=== PATIENT | female | born 1960 | race Caucasian/White ===

== ENCOUNTER 2025-09-30 09:00 | Outpatient (RCR) | payer MEDICARE, OTHER, SELFPAY ==
--- NOTE | 2025-03-25 11:40 | HP.PTEVAL ---
Patient's Visit Information Visit Information Visit Information: GISEL TIPTON is a 65 year old F referred to Physical Therapy by Dr. Alyx Chambers MD with a diagnosis of LBP, lower abdominal pain. Date of Evaluation: 03/25/25 Physical Therapist: John Nicholson, DPT, OCS, CSCS Visit Plan Frequency: 1x/Week Duration: 4-6 Weeks Plan: weekly(pt choice due to long drive and busy schedule, willing to work at home) for [id number] PT eval next session and POC adjusted as needed. Progression of core, postural, pelvic and hip /LE strength ex via HEP, progression of lumbar ROM exercises to tolerance and ensure progression of walking. IE HEP: YTB supine hip abd, ball squeeze supine for hip add, pelvic tilt, all 2x10 2x/day and eis 2x10 2x/day, HO given and performed in PT today [facility] to see next session and progress ex, eval women's health/pelvic Subjective Subjective: Had US for her pain and has no hernia. Has pain in lower abdomen and felt like things are falling out and has bladder infection and prolapsed bladder partially. Darrius intermittent LBP also and sore to push on. Chiropractor regularly. Symptoms since January and for no obvious reason. No other diagnostics. Pain is constant and described as not feeling right. Has granddaughters who are 35# and can feel it lifting them adn it makes it worse. Sitting at sewing machine can also cause it but gone with walking then. H/o c/ section and ovaries removed. Sleep is OK rolls around alot. Bladder cannot empty sometimes. Activity : avoids outside work due to bending making her worse. Basic ADLs: all I. No regular exercises but has a little trampoline but it makes her worse so avoids it. Pain abdominal pain: Pain Intensity (Out of 10): 0 Pain Intensity Range: 0 and 4 Objective Objective: Walks into PT slowly but I, trasnfers chair and bed I. Steps reciprocal with one rail. No balance deficits L hip. Lumbar multisegmental AROM ext max limited and pinches midline LB and pulling sensation in front with slight bulge at belly, no pain. SB are WFL and painfree. Flexion is WFL and painfree. LE AROM WFL, tightness obvious in HS B at -30 90/90 test and minimally in quads into psoas with hip ext PROM B to 5 degrees. Hip other PROM er 50 B, flexion 110 R and 100 L with some lateral pain L, + FADDIR L hip. IR painful L not r. knee and ankle aROM WFL B. reflexes 1/3 patella adn achilles B. Sensation to gross light touch B LE WNL. SI testing with bad, add, hip rotation and compression/shear all in supine or S/L all wFL and without pain. strength hip abd and ext weak B 3/5, rotations 3+/5, flexion 4- /5, knees 3+ ext adn 4- flexion B without pain. ankles 4+/5 B. core strength abds 3 and ext 3, no pain. Tender to palpation throughout L ghluts and ITB and trochanter area moderately not present on R. Parapsinals are not tender to palpation.Not overly tender to palpation in abdominal area L or R. Balance/Special Test Scores Oswestry Low Back Score: 13 Goals Goal 1:: evaluated by womens health therapist and POC adjusted as needed Goal Time Frame: 2 Weeks Goal 2:: I appropriate HEP for core, hip, pelvic strength and LB ROM to minimize future symptoms. Goal Time Frame: 4-6 Weeks Goal 3:: walk 30 minutes without symptoms Goal Time Frame: 4-6 Weeks Goal 4:: oswestry score 5 or better Goal Time Frame: 4-6 Weeks Rehabilitation Potential Physical Therapy Diagnosis: limited ROM and weakness creating instability adn pain abdomen and LB. Rehabilitation Potential: Fair Anticipated Interventions Patient/Client Instruction: Educate patient on: Condition and Plan of Care For the Purpose of:: To decrease pain, To increase ROM, To improve nutrient delivery to tissue, To improve muscle performance and motor function, To improve ability of physical actions for home/community/work/leisure and To improve gait and locomotor functions Therapeutic Exercise to Include: Strength training, Postural training, Passive ROM and Active ROM For the Purpose of:: To decrease pain, To increase ROM, To improve nutrient delivery to tissue, To improve muscle performance and motor function, To increase tolerance to activity/condition/position, To decrease soft tissue restriction and To increase flexibility/ROM Manual Therapy Techniques to Include: Passive ROM and Soft tissue mobilization For the Purpose of:: To decrease pain, To increase ROM, To improve nutrient delivery to tissue, To improve muscle performance and motor function, To improve ability of physical actions for home/community/work/leisure and To improve gait and locomotor functions Text: Thank you for the opportunity to evaluate your patient. For Medicare and Medicare HMO plans, please review the plan of care and approve it. It will need to be FAXED BACK to us at [phone] for Medicare purposes. For Medicare only, by signing this I certify the plan of care. Please let me know if there are questions or concerns regarding this plan of care. Physician Signature: Date:
--- NOTE | 2025-09-30 16:59 | HP.PTDCSUM ---
Discharge Summary D/C summary: It has been my pleasure to treat TRISH TIPTON referred by Dr. Alyx Chambers MD, with the diagnosis of LBP, lower abdominal pain for a total of 12 visit(s). Discharge Date: 09/30/25 Please see the following information for a summary of their discharge status. Subjective Subjective: She has a constant pain in her vaginal area. She states she has had on and off infections. She saw Dr. Chambers and she started her on Uro-mp to help with the pain in the vaginal area. She hasn't seen much of a change. She also started her on Gemtessa to treat the overactive bladder. Dr. Chambers ordered a cystoscopy on . Nothing has helped with the burning. Her initial problem when she started PT was that she couldn't fully empty her bladder. That has somewhat improved (20% improved). Pain is averaging 10/10. She feels lower abdominal pressure as well. She also tried 5 lymphatic treatments which made her feel better overall but didn't change vaginal symptoms. No complaints of low back pain. Pain abdominal pain: Pain Intensity (Out of 10): 0 LOW BACK PAIN: Pain Intensity (Out of 10): 4 Overall Improvement % Improvement: 0 Objective Objective/Function: Unfortunately Trish did not notice much improvement in her pain levels with PT She has continued the pelvic floor strengthening exercises and finds those helpful. She reports about 20% improvement in her ability to empty her bladder which was a concern when she started. She continues to have pretty constant vaginal pain and pressure in the pubic region. Recommending she continue care with Dr. Chambers . She is scheduled for a cystoscopy in October. Goals Goal 1:: evaluated by womens health therapist and POC adjusted as needed Goal Progress: Progressing Goal 2:: I appropriate HEP for core, hip, pelvic strength and LB ROM to minimize future symptoms. Goal Progress: Progressing Goal 3:: walk 30 minutes without symptoms Goal Progress: Not Progressing Goal 4:: oswestry score 5 or better Goal Progress: Not Progressing Plan Plan: D/C from PT . She has met her max rehab potential. D/C Information Discharge Comments: Trish has met her max rehab potential and is being discharged. She will be continuing care and following up with Dr. Chambers. d/c sentence: If there are questions or concerns regarding this patient's physical therapy, please feel free to call me at [phone]. Thank you for the referral of this patient. Sincerely, Sofie Peck Balance/Gait/Functional tests Balance/Special Test Scores Oswestry Low Back Score: 13 Improvement % Improvement: 0
== END 2025-09-30 19:00 | disposition home or self-care (01) ==
LOC: PT 09:00
PROVIDERS: Referring Provider Urology; Visit Provider Urology
DX: M54.50 Low back pain, unspecified (principal); R10.30 Lower abdominal pain, unspecified
CPT/HCPCS: 97110; 97112; 97140; 97161; 97530

== ENCOUNTER 2025-11-11 05:48 | Day surgery (SDC) | payer MEDICARE, OTHER, SELFPAY ==
--- NOTE | 2025-11-04 13:29 | EKG12_ITS ---
Test Reason : PREOP Blood Pressure : */* mmHG Vent. Rate : 71 BPM Atrial Rate : 71 BPM P-R Int : 160 ms QRS Dur : 122 ms QT Int : 432 ms P-R-T Axes : 43 -69 19 degrees QTcB Int : 469 ms Normal sinus rhythm Right bundle branch block Left anterior fascicular block Bifascicular block Inferior infarct , age undetermined Abnormal ECG Confirmed by MERLENE OWENS, MARCELO ([id number]), newspaper copy editor NIR JOSE ([id number]) on 11/05/2025 9:18:37 AM Referred By: Alyx Chambers Confirmed By: MARCELO BLUNT MD
[2025-11-04 14:24] LABS: Hematocrit 45.8 % (37-47); Hemoglobin 14.4 g/dL (12.0-15.0); Mean Corp Hgb Conc 31.4 g/dL (32-36); Mean Corpuscular Volume 77.8 fL (81-99); Mean Platelet Vol. 9.7 fl (6.2-12.0); Platelet Count 240 K/mm3 (150-450); RBC Distribution Width CV 14.9 % (11.6-14.6); RBC Distribution Width SD 41.5 fl (35.1-43.9); Red Blood Count 5.89 M/mm3 (4.2-5.4); White Blood Count 8.7 K/mm3 (4.4-11.0)
[2025-11-04 15:25] LABS: Anion Gap 14 (5-15); BUN 15 mg/dL (4-19); BUN/Creat Ratio 14.4 RATIO (10-20); Calcium,Total 9.5 mg/dL (7.6-11.0); Carbon Dioxide 22.6 mmol/L (21.0-32.0); Chloride 105 mmol/L (98-108); Glucose 97 mg/dL (70-99); Potassium 4.0 mmol/L (3.3-5.1)
--- NOTE | 2025-11-04 17:00 | PAT.ANE_ITS ---
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 When Was Last Pacemaker Check QUESTION #4 FULL TEXT: You/Your Family Experience fever (hyperthermia) with Anesthesia Last Oral Intake Last Oral intake: Last Oral Intake NPO since Meds taken in AM with sips of water? 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 Has anyone observed you stop No 11/03/25 13:30 breathing during sleep? STOP Results Negative 11/03/25 13:30 QUESTION #5 FULL TEXT : Do you snore loudly (louder than talking or can be heard through closed doors)? 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 Specify any problems Hx of Preganancy in last 3 N/A 11/03/25 13:30 Months Nurse Filling Out Transfusion NBUCHER 11/03/25 13:30 & Questions: Date: 11/03/25 11/03/25 13:30 Time: 13:31 11/03/25 13:30 Patient unable to answer at this time (ie. 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 apprentice Hx Now No 11/03/25 13:30 Gestational Age (in weeks): EDC: Hx Hx Para Hx Section SAB No 11/03/25 13:30 Does the father of the baby or his family experience fever w Father of the baby Malignant Hypertension history comment [facility] Medical History (Updated 11/03/25 @ 13:36 by Sanam Munoz) Wears glasses Bladder disease High cholesterol Heartburn Gastric reflux PONV (postoperative nausea and vomiting) History of mammogram History of Papanicolaou smear of cervix Seasonal allergies Radiculopathy of leg Myalgia Migraine without aura Insomnia Irritable bowel syndrome with constipation Hyperlipidemia GERD (gastroesophageal reflux disease) Degenerative disc disease, cervical UTI (urinary tract infection) Migraines Thyroid disease Anxiety and depression Vaginal atrophy Asymptomatic bacteriuria Nocturia Constipation Pelvic and perineal pain Home Medications ?Medication ?Instructions ?Recorded ?Last Taken ?Type levothyroxine 50 mcg tablet 50 mcg PO QHS 08/24/25 Unk nown History cephalexin 250 mg capsule 250 mg PO QHS #90 caps 10/18 Unknown Rx magnesium 200 mg tablet 1,400 mg PO QHS 11/03/25 Unk nown History magnesium citrate 100 mg capsule 100 mg PO DAILY 11/03 Unknown History Allergy/AdvReac Type Severity Reaction Status Date / Time codeine Allergy itching Verified 11/03/25 13:27 Penicillins Allergy Rash Verified 11/03/25 13:27 Sulfa (Sulfonamide AdvReac Vomiting Verified 11/03/25 13:27 Antibiotics) Family History Brother CAD (coronary artery disease) Heart disease Father Lymphoma Heart disease Grandmother Lymphoma Uncle Cancer Prostate. Mother Colon cancer Breast cancer Other Diabetes Surgical History History of delivery History of appendectomy History of ovarian cystectomy Social History Smoking Status: Never smoker alcohol intake: never Audit: Pertinent Findings Pertinent Findings EKG Perinent findings: November 04, 2025. Normal sinus rhythm. Right bundle branch block. Left anterior fascicular block. Inferior infarct, age undetermined. Recommendation Anesthesia Recommendation Anesthesia recommendation: OPTIMIZED for anesthesia
[2025-11-11] VITALS (9 sets, daily range): BP systolic 88–135; BP diastolic 57–80; PULSE 66–71; RESP 14–18; TEMP 36.3–37.1; O2SAT 92–98; BMI 29.1
--- OUTSIDE RECORDS SUMMARY | 2025-11-11 05:53 | XMS RPT_ITS | CCD ---
Author Organization [facility] Care Team Providers Care Manager Ambulatory Name Role Phone ROWDY OWENS, FRANCIS Lopez Primary Care Physician [phone] BELKIS MICHAUD Attending Adeline murtaza RENO MD, FRANCIS Lopez Primary Care Unavailable PONCE OWENS, DR ECHEVERRIA Attending Unavaildaniella RENO MD, FRANCIS Lopez Primary Care Unavailable PONCE OWENS, DR ECHEVERRIA Attending Unavaildaniella RENO MD, FRANCIS Lopez Primary Care Unavailable Tanja JOHNSON MD Unavailable [phone] PHYSICAL THERAPY, CONSULT Unavailable Unacaroline JOHNSON MD, VERA Unavailable BRONX Unavailable Unavailable KOBE OWENS, LOUIS Panchal Unavailable KINSEY OWENS, MARILIA Galo Unavailable [phone] Arcelia Wang RN Unavailable Unavailable Naima Vega Unavailable Unavailable Scott GIBSON, Shakira Unavailable Unavaila JAYLIN Luz Unavailable Unavailable ERICA ETIENNE Unavailable Unavailable Rosalinda GIBSON, Bertha Unavailable Unavailable Michelle Toth Unavailable Unavailable Linda Bundy Unavailable Unavailable Rhett Bundy Unavailable Unavailable FABIAN WILLARD Unavailable Unavailable ROWDY OWENS, ELAINA Le Unavailable [phone] JEROME EM Unavailable Unavailable SHANICE GIBSON, ERAN Unavailable Unavailable HARI TIPTON Unavailable Unavailable Elizabeth Willard Unavailable Unavailable JUAN AMAYA Unavailable Unavailable BELKIS SAENZ Unavailable [phone] ALISSA GIBSON, CHRISTIAN Unavailable UnavailMalka Godwin Unavailable Unavailable Unavailable Unavailable Alissa GIBSON, Magali Unavailable Unavailab BELKIS Soria Unavailable Unav ailable LOUIE FILL TECHNICIAN-C, MICHELLE Unavailable LOUIE, MICHELLE C Attending Unavailable LOUIE, MICHELLE C Consulting Unavailable LOUIE, MICHELLE C Primary Care Unavailable LOUIE, MICHELLE C Admitting Unavailable PROVIDER, UNKNOWN Consulting Unavailable PROVIDER, UNKNOWN Consulting Unavailable ROWDY OWENS, FRANCIS Lopez Primary Care Unavailable PONCE OWENS, JUWAN Archibald Attending Unavailable Blaire Willard Unavailable Unavailable Care Physician, No Primary Primary Care Physicia n Unavailable Dr. Alyx Chambers MD Attending Physician Dr. Alyx Chambers MD Referring Provider [phone] Care Physician, No Primary Referring Provider Un available Care Physician, No Primary Primary Care Unava ilable Alyx Chambers Referring Unavailable Alyx Chambers Attending Unavailable Care Physician, No Primary Primary Care Unava ilable Alyx Chambers Attending Unavailable Care Physician, No Primary Referring Unava ilable Care Physician, No Primary Referring Unava ilable Care Physician, No Primary Primary Care Unava ilable Alyx Chambers Attending Unavailable Care Physician, No Primary Primary Care Physicia n Unavailable Care Physician, No Primary Referring Provider Un available Dr. Alyx Chambers MD Attending Physician Dr. Alyx Chambers MD Referring Provider Allergies Allergy Classification Reported Allergen(s) Allergy Type Date of Onset Reaction(s) Facility (20 sources) [facility] ([facility]) Sulfonamides (Antibiotic) [facility] [place]. (20 sources) Codeine Phosphate *ANALGESICS - OPIOID* [facility] (2 sources) Codeine Drug Allergy 5 itching [facility] (1 source) Codeine Drug Allergy 5 [facility] (1 source) Penicillins Drug allergy (disorder) 5 [facility] (1 source) Sulfonamides (Antibiotic) Drug allergy (disorder) 5 [facility] (1 source) Penicillins Allergy to substance 5 Rash [facility] (1 source) Sulfonamides (Antibiotic) Propensity to adverse reactions 5 Vomiting [facility] Medications Current Medications Medication Drug Class(es) Dates Sig (Normalized) Sig (Original) Bladder health (1 source) Start: 09-21-2025 estradiol 0.1 mg/ml vaginal cream (20 sources) Estrogen Start: 08-24-2025 Estradiol Status : Inactive Comments: Dr. Mcgregor Comment on above: Dr. Mcgregor hyoscyamine sulfate 0.12 mg / methenamine 118 mg / methylene blue 10 mg / phenyl salicylate 36 mg / sodium phosphate, monobasic 40.8 mg oral capsule (2 sources) Oxidation-Reduction Agent Start: 09-23-2025 Start: 09-21-2025 End: 09-23-2025 Methen-MRafaelaBlue-S.Kwvf-Drpqx-G yo (Uro-Mp) 118-10-40.8-36 mg capsule Discontinued 1 {tbl} PO .qid as needed for pain 90 3 September 20, 2025 11:00pm September 23, 2025 1:06pm administer with plenty of fluids levothyroxine sodium 0.05 mg oral tablet (20 sources) l-Thyroxine Start: 10-06-2025 Synthroid 50 m cg tablet ; 1 (one) tablet daily for 90 days Quantity: 90 {Tablet} Refills: 3 Ordered: 06-Oct-2025 CAROLE PALMA Start: 06-Oct-2025 Start: 02-10-2025 Start: 07-21-2024 Synthroid 50 m cg tablet ; 1 (one) tablet daily for 90 days Quantity: 90 {Tablet} Refills: 1 Ordered: 21-Jul-2024 CAROLE AUGUSTE Start: 21-Jul-2024 Start: 07-31-2023 Synthroid 25 m cg tablet ; 2 tablet daily for 90 days Quantity: 180 {Tablet} Refills: 1 Ordered: 31-Jul-2023 CAROLE AUGUSTE Start: 31-Jul-2023 Comments: Place on hold for pt. Start: 08-30-2022 End: 09-10-2022 take 1 tablet by mouth before breakfast Synthroid 25 MCG Oral Tablet ; 1 (one) Tablet every morning for 90 days Quantity: 90 {Tablet} Refills: 3 Ordered: 10-Sep-2022 Malka Rodriguez Start: 30-Aug-2022 End: 10-Sep-2022 Status: Inactive Comments: May dispense Generic Comment on above: Place on hold for pt . May dispense Generic Multi Vitamin Daily Oral Tablet (20 sources) take 2 tablets by mouth once daily Multi Vitamin Daily Oral Tablet ; 2 daily Multivitamin tablet (2 sources) Start: 08-24-2025 Start: 08-24-2025 Multivitamin t ablet Active 1 {tbl} PO EVERY MORNING August 24, 2025 12:00am Complies with drug therapy nitrofurantoin, macrocrystals 25 mg / nitrofurantoin, monohydrate 75 mg oral capsule (20 sources) Nitrofuran Antibacterial Start: 08-25-2025 End: 09-21-2025 take 1 capsule by mouth twice daily at mealtime Start: 03-09-2021 End: 03-14-2021 take 1 capsule by mouth twice daily Macrobid 100 MG Oral Capsule ; 1 (one) Capsule two times daily for 5 days Quantity: 10 {Capsule} Refills: 0 Ordered: 15-Mar-2021 CAROLE AUGUSTE Start: 09-Mar-2021 End: 14-Mar-2021 Status: Inactive SUMAtriptan 50 mg oral tablet (20 sources) Serotonin-1b and Serotonin-1d Receptor Agonist Start: 12-10-2022 take 1 tablet by mouth twice daily as needed Imitrex 50 mg oral tablet ; 1 (one) Tablet two times daily as needed for migraine for 6 days Quantity: 30 {Tablet} Refills: 2 Ordered: 10-Dec-2022 CAROLE AUGUSTE Start: 10-Dec-2022 Comments: Medication taken as needed. Comment on above: Medication taken as needed. Vitamin B Complex tablet (1 source) Start: 09-21-2025 Completed/Discontinued Medications Medication Drug Class(es) Dates Sig (Normalized) Sig (Original) acetaminophen 325 mg / butalbital 50 mg / caffeine 40 mg oral tablet (20 sources) Barbiturate, Central Nervous System Stimulant, Methylxanthine Start: 01-03-2018 End: 12-12-2018 take 1-2 tablets by mouth every four hours as needed for headache Esgic 50-325-40 MG Oral Tablet ; 1-2 Tablet Tablet every four hours as needed for headache for 0 days Quantity: 30 {Tablet} Refills: 1 Ordered: 12-Dec-2018 Start: 03-Jan-2018 End: 12-Dec-2018 Status: Inactive Comments: Medication taken as needed. Comment on above: Medication taken as needed. amitriptyline hydrochloride 25 mg oral tablet (20 sources) Tricyclic Antidepressant Start: 01-03-2018 End: 07-03-2019 take 1 tablet by mouth at bedtime Amitriptyline HCl 25 MG Oral Tablet ; 1 Tablet at bedtime for 0 days Quantity: 90 {Tablet} Refills: 3 Ordered: 03-Jul-2019 PAIGE Tellez Start: 03-Jan-2018 End: 03-Jul-2019 Status: Inactive Start: 10-16-2013 End: 11-03-2013 take 1 tablet by mouth once daily, then take 2 tablets by mouth once daily AMITRIPTYLINE HCL, 10MG (Oral Tablet) ; 1 Tablet every night for 5 nights, then 2 every night for 0 days Quantity: 30 {Tablet} Refills: 3 Ordered: 03-Nov-2013 Linda Bundy Start: 16-Oct-2013 End: 03-Nov-2013 Status: Inactive Comments: Steph MENDES Comment on above: Steph MENDES atorvastatin 10 mg oral tablet (20 sources) HMG-CoA Reductase Inhibitor Start: 07-03-20 End: 08-17-20 take 1 tablet by mouth once daily Atorvastatin Calcium 10 MG Oral Tablet ; 1 (one) Tablet daily for 0 days Quantity: 30 {Tablet} Refills: 5 Ordered: 17-Aug-2019 PAIGE PRASAD Start: 03-Jul-2019 End: 17-Aug-2019 Status: Inactive azithromycin 250 mg oral tablet (20 sources) Macrolide Antimicrobial Start: 08-24-20 End: 09-21-20 Azithromycin 250 mg tablet Discontinued mg PO August 23, 2025 11:00pm September 21, 2025 9:49am Start: 04-19-2025 End: 04-24-2025 azithromycin 250 mg tablet ; 2 (two) tablet on day one po, then take 1 tab po daily for 5 days Quantity: 6 {Tablet} Refills: 0 Ordered: 31-Aug-2025 CAROLE PALMA Start: 19-Apr-2025 End: 24-Apr-2025 Status: Inactive Start: 08-06-2023 End: 08-11-2023 azithromycin 250 mg tablet ; 2 (two) Tablet on day one, then 1 tablet daily for 4 days for 5 days Quantity: 6 {Tablet} Refills: 0 Ordered: 26-Nov-2023 MD ELAINA RENO Start: 06-Aug-2023 End: 11-Aug-2023 Status: Inactive Start: 10-21-2021 End: 10-26-2021 Azithromycin 250 MG Oral Tab let ; 2 (two) Tablet on day one, then 1 tablet daily for 4 days for 5 days Quantity: 6 {Tablet} Refills: 0 Ordered: 30-Aug-2022 CAROLE AUGUSTE Start: 21-Oct-2021 End: 26-Oct-2021 Status: Inactive Start: 01-21-2018 End: 01-26-2018 Azithromycin 250 MG Oral Tab let ; 2 (two) Tablets on day one then 1 daily for 4 days for 5 days Quantity: 6 {Tablet} Refills: 0 Ordered: 01-Apr-2018 MD ELAINA RENO Start: 21-Jan-2018 End: 26-Jan-2018 Status: Inactive Comments: medication to be dispensed in office Comment on above: medication to be dis pensed in office benzonatate 200 mg oral capsule (20 sources) Non-narcotic Antitussive Start: End: take 1 capsule by mouth three times daily Benzonatate 200 MG Oral Capsule ; 1 (one) Capsule three times daily for 5 days Quantity: 15 {Capsule} Refills: 0 Ordered: 30-Aug-2022 CAROLE AUGUSTE Start: 21-Oct-2021 End: 26-Oct-2021 Status: Inactive cephalexin 500 mg oral capsule (20 sources) Cephalosporin Antibacterial Start: End: take 1 capsule by mouth three times daily Cephalexin 500 MG Oral Capsule ; 1 (one) Capsule tid for 10 days Quantity: 30 {Capsule} Refills: 0 Ordered: 18-Oct-2021 CAROLE AUGUSTE Start: 18-Oct-2021 End: 28-Oct-2021 Status: Inactive ciprofloxacin 500 mg oral tablet (20 sources) Quinolone Antimicrobial Start: End: take 1 tablet by mouth twice daily Cipro 500 MG Oral Tablet ; 1 (one) Tablet two times daily for 7 days Quantity: 14 {Tablet} Refills: 0 Ordered: 03-Apr-2021 CAROLE AUGUSTE Start: 17-Mar-2021 End: 24-Mar-2021 Status: Inactive diazePAM 5 mg oral tablet (20 sources) Benzodiazepine Start: 014 End: take 1 tablet by mouth three times daily as needed DIAZEPAM, 5MG (Oral Tablet) ; one Tab three times daily as needed, muscle relaxant for 0 days Quantity: 30 {Tablet} Refills: 0 Ordered: 10-Dec-2014 JEROME EM Start: 17-Sep-2014 End: 10-Dec-2014 Status: Inactive Comments: Medication taken as needed. Comment on above: Medication taken as needed. dicyclomine hydrochloride 20 mg oral tablet (20 sources) Anticholinergic Start: 011 End: take 1 tablet by mouth three times daily as needed BENTYL, 20MG (Oral Tablet) ; 1 (one) Tablet three times daily, as needed for 0 days Quantity: 30 {Tablet} Refills: 0 Ordered: 16-Oct-2013 Start: 17-Jul-2011 End: 16-Oct-2013 Status: Inactive Comments: Medication taken as needed. meds to be dispensed in office Comment on above: Medication taken as needed. meds to be dispensed in office fluconazole 150 mg oral tablet (20 sources) Azole Antifungal Start: End: take 1 tablet by mouth every week Diflucan 150 MG Oral Tablet ; 1 (one) Tablet weekly for 28 days Quantity: 4 {Tablet} Refills: 0 Ordered: 09-Mar-2021 CAROLE AUGUSTE Start: 19-Sep-2020 End: 17-Oct-2020 Status: Inactive gabapentin 100 mg oral capsule (20 sources) Anti-epileptic Agent Start: 019 End: 019 take 1 capsule by mouth three times daily as needed Gabapentin 100 MG Oral Capsule ; 1 (one) Capsule at bedtime, may increase to three times daily as needed for 0 days Quantity: 30 {Capsule} Refills: 5 Ordered: 17-Aug-2019 PAIGE PRASAD Start: 03-Jul-2019 End: 17-Aug-2019 Status: Inactive Comments: Medication taken as needed. Comment on above: Medication taken as needed. hydrOXYzine hydrochloride 25 mg oral tablet (20 sources) Antihistamine Start: 022 End: 023 hydrOXYzine HCL 25 mg oral tablet ; 1 (one) Tablet as needed for 30 days Quantity: 30 {Tablet} Refills: 2 Ordered: 04-Mar-2023 PAIGE PRASAD Start: 10-Sep-2022 End: 04-Mar-2023 Status: Inactive Comments: Medication taken as needed. Comment on above: Medication taken as needed. ketoconazole 200 mg oral tablet (20 sources) Azole Antifungal Start: 011 End: 013 take 1 tablet by mouth once daily as needed KETOCONAZOLE, 200MG (Oral Tablet) ; 1 Tablet daily PRN for 0 days Quantity: 30 {Tablet} Refills: 1 Ordered: 16-Oct-2013 Start: 20-Jul-2011 End: 16-Oct-2013 Status: Inactive metroNIDAZOLE 500 mg oral tablet (2 sources) Nitroimidazole Antimicrobial Start: 025 End: 025 take 1 tablet by mouth twice daily Metronidazole 500 mg tablet Discontinued 500 mg PO TWICE A DAY 14 0 August 24, 2025 11:00pm September 21, 2025 9:49am Multivital (20 sources) Multivital Statu s: Inactive naproxen 500 mg oral tablet (20 sources) Nonsteroidal Anti-inflammatory Drug Start: 014 End: 015 take 1 tablet by mouth three times daily for pain NAPROXEN, 500MG (Oral Tablet) ; 1 (one) Tablet Tablet three times daily as need for inflammation-head & neck pain for 7 days Quantity: 30 {Tablet} Refills: 2 Ordered: 14-Oct-2015 FABIAN WILLARD Start: 17-Sep-2014 End: 14-Oct-2015 Status: Inactive nitrofurantoin, macrocrystals 100 mg oral capsule (19 sources) Nitrofuran Antibacterial Start: 025 End: 025 take 1 capsule by mouth twice daily nitrofurantoin macrocrystaL 100 mg capsule ; 1 (one) capsule po BID x7days for 7 days Quantity: 14 {Capsule} Refills: 0 Ordered: 03-Mar-2025 LOUIECAROLE MICHELLE Start: 23-Feb-2025 End: 02-Mar-2025 Status: Inactive ondansetron 4 mg oral tablet (20 sources) Serotonin-3 Receptor Antagonist Start: End: take 1 tablet by mouth every four hours as needed for nausea ZOFRAN, 4MG (Oral Tablet) ; 1 Tablet every four hours as needed for nausea,dissolve under tongue or swallow for 0 days Quantity: 8 {Tablet} Refills: 3 Ordered: 10-Dec-2014 JEROME EM Start: 16-Oct-2013 End: 10-Dec-2014 Status: Inactive Comments: Medication taken as needed. Comment on above: Medication taken as needed. pantoprazole 40 mg delayed release oral tablet (20 sources) Proton Pump Inhibitor Start: End: take 1 tablet by mouth once daily PROTONIX, 40MG (Oral Tablet Delayed Release) ; [address] Table[address] DR daily for 0 days Quantity: 30 {Tablet} Refills: 5 Ordered: 14-Oct-2015 FABIAN WILLARD Start: 01-Apr-2015 End: 14-Oct-2015 Status: Inactive Comments: Xavi Lay Comment on above: Xavi Lay predniSONE 20 mg oral tablet (20 sources) Start: 019 End: 019 take 2 tablets by mouth once daily, then take 1 tablet by mouth once daily predniSONE 20 MG Oral Tablet ; 2 (two) Tablet daily x three days, then one daily for 0 days Quantity: 12 {Tablet} Refills: 0 Ordered: 03-Jul-2019 PAIGE Tellez Start: 12-Dec-2018 End: 03-Jul-2019 Status: Inactive Pregnenolone (20 sources) Pregnenolone Sta tus: Inactive Comments: Dr. Mcgregor Comment on above: Dr. Mcgregor progesterone 100 mg oral capsule (20 sources) Progesterone take 1 capsule by mouth once daily PROGESTERONE MICRONIZED, 100MG (Oral Capsule) ; 1 daily (100 MG) Status: Inactive Comments: Dr. Mcgregor Comment on above: Dr. Mcgregor red yeast rice (20 sources) End: 025 Red Yeast Rice ; 1 (one) every other day End: 23-Feb-2025 Status: Inactive Red Yeast Rice ; 1 (one) every other day rizatriptan 5 mg disintegrating oral tablet (20 sources) Serotonin-1b and Serotonin-1d Receptor Agonist Start: 10-16-2013 End: 02-12-2014 take 1-2 tablets by mouth three times daily as needed for headache MAXALT-SUPER[employer]OR [employer] HEAR[employer] STOCKYARD, 5MG (Oral Tablet Dispersible) ; 1-2 Tablet Disperse dissolve in mouth up to three times a day as needed for migraine headache for 0 days Quantity: 6 {Tablet_Disperse} Refills: 5 Ordered: 12-Feb-2014 Start: 16-Oct-2013 End: 12-Feb-2014 Status: Inactive Comments: Medication taken as needed. Comment on above: Medication taken as needed. rosuvastatin calcium 5 mg oral tablet (20 sources) HMG-CoA Reductase Inhibitor Start: 07-09-2017 End: 01-03-2018 Rosuvastatin Calcium 5 MG Oral Tablet ; 1/2 (one half) Tablet weekly for 4 weeks then 1/2 twice weekly for 4 weeks for 60 days Quantity: 10 {Tablet} Refills: 1 Ordered: 03-Jan-2018 Start: 09-Jul-2017 End: 03-Jan-2018 Status: Inactive Comments: Do not fill until patient calls.Labwork (fasting lipids) to be done after 8 weeks taking medication Comment on above: Do not fill until pa tient calls.Labwork (fasting lipids) to be done after 8 weeks taking medication Testosterone (20 sources) Androgen Testosterone Cypionate Status: Inactive Comments: Dr. Mcgregor Comment on above: Dr. Mcgregor thyroid (half-way) 60 mg oral tablet (20 sources) take 1 tablet by mouth once daily THYROID, 60MG (Oral Tablet) ; 1 daily (60 MG) Status: Inactive Comments: Dr. Mcgregor Comment on above: Dr. Mcgregor topiramate 25 mg oral tablet (20 sources) Start: 09-19-2020 End: 09-10-2022 take 1 tablet by mouth once daily Topamax 25 MG Oral Tablet ; 1 Tablet daily for 0 days Quantity: 90 {Tablet} Refills: 5 Ordered: 10-Sep-2022 Malka Rodriguez Start: 19-Sep-2020 End: 10-Sep-2022 Status: Inactive traZODone hydrochloride 50 mg oral tablet (20 sources) Serotonin Reuptake Inhibitor Start: 03-21-2020 End: 09-19-2020 take 1 tablet by mouth at bedtime traZODone HCl 50 MG Oral Tablet ; 1 (one) Tablet at bedtime for 30 days Quantity: 30 {Tablet} Refills: 2 Ordered: 19-Sep-2020 Michelle Toth Start: 21-Mar-2020 End: 19-Sep-2020 Status: Inactive Comments: 1-2 tabs at bedtims Comment on above: 1-2 tabs at bedtims Problems Active Problems Problem Classification Problem Date Documented Da te Episodic/Chronic Abdominal pain (5 sources) Pelvic and perineal pain; Translations: [Pelvic and perineal pain] 08-24-2025 Episodic Administrative/social admission (20 sources) Patient encounter status; Translations: [Counseling, unspecified] 09-19-2020 Episodic Allergic reactions (20 sources) Allergic disorder of skin; Translations: [Allergic contact dermatitis, unspecified cause] 03-09-2021 Episodic Comment on above: hands Anxiety disorders (20 sources) Mixed anxiety and depressive disorder; Translations: [Other specified anxiety disorders] 09-10-2022 Chronic Comment on above: stable Chronic obstructive pulmonary disease and bronchiectasis (20 sources) Bronchitis; Translations: [Bronchitis, not specified as acute or chronic] 08-06-2023 Episodic Digestive congenital anomalies (20 sources) Disorder of tongue; 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] 03-09-2021 Chronic Disorders of lipid metabolism (20 sources) Hyperlipidemia; Translations: [Hyperlipidemia, unspecified] 03-04-2023 Chronic Esophageal disorders (20 sources) Esophageal reflux 03-09-2021 Chronic Comment on above: stable off Protonix Gastritis and duodenitis (20 sources) Acute gastritis, without mention of hemorrhage 04-01-2015 Episodic Gastrointestinal hemorrhage (20 sources) Blood-tinged feces; Translations: [Melena] 07-19-2011 Episodic Genitourinary symptoms and ill-defined conditions (20 sources) Urinary symptoms ; Translations: [Unspecified symptoms and signs involving the genitourinary system] Onset: 08-24-2025 03-17-2021 Episodic Headache; including migraine (20 sources) Migraine without aura, not refractory ; Translations: [Migraine without aura, not intractable, without status migrainosus] 12-10-2022 Chronic Headache; including migraine (20 sources) Chronic headache disorder; Translations: [Headache] 04-09-2014 Episodic Inflammatory diseases of female pelvic organs (4 sources) Acute vaginitis; Translations: [Acute vaginitis] 08-24-2025 Episodic Menopausal disorders (5 sources) Atrophy of vagina; Translations: [Postmenopausal atrophic vaginitis] 08-24-2025 Chronic Miscellaneous mental health disorders (20 sources) Transient insomnia; Translations: [Adjustment insomnia] 03-09-2021 Episodic Mood disorders (20 sources) Depressive disorder; Translations: [Depressive disorder, not elsewhere classified] 03-09-2021 Chronic Mood disorders (20 sources) Mood disorders 07-03-2019 Nausea and vomiting (20 sources) Nausea alone 11-03-2013 Episodic Noninfectious gastroenteritis (20 sources) Acute gastroenteritis; Translations: [Noninfective gastroenteritis and colitis, unspecified] 07-17-2011 Episodic Nonmalignant breast conditions (1 source) Mammographic calcification found on diagnostic imaging of breast; Translations: [Mammographic calcification found on diagnostic imaging of breast] Onset: 03-02-2025 Episodic Other connective tissue disease (20 sources) Muscle pain; Translations: [Myalgia, unspecified site] 03-04-2023 Episodic Other connective tissue disease (20 sources) Myofascial pain; Translations: [Myalgia] 09-17-2014 Episodic Other gastrointestinal disorders (20 sources) Irritable bowel syndrome characterized by constipation; Translations: [Irritable bowel syndrome with constipation] 03-09-2021 Chronic Comment on above: on Mg++ Other gastrointestinal disorders (20 sources) Pelvic mass; Translations: [Other intra-abdominal and pelvic swelling, mass and lump] 02-23-2025 Episodic Other gastrointestinal disorders (5 sources) Constipation; Translations: [Constipation, unspecified] 08-24-2025 Episodic Other lower respiratory disease (20 sources) Cough; Translations: [Cough] 10-21-2021 Episodic Other screening for suspected conditions (not mental disorders or infectious disease) (20 sources) Raised TSH level; Translations: [Other specified abnormal findings of blood chemistry] Onset: 03-02-2025 03-09-2021 Episodic Comment on above: mildy elevated TSH Other skin disorders (20 sources) Disorder of pigmentation; Translations: [Disorder of pigmentation, unspecified] 03-09-2021 Episodic Other upper respiratory disease (20 sources) Seasonal allergy; Translations: [Other seasonal allergic rhinitis] 09-10-2022 Chronic Other upper respiratory infections (20 sources) Chronic sinusitis; Translations: [Chronic sinusitis, unspecified] 01-21-2018 Chronic Other upper respiratory infections (20 sources) Acute pharyngitis; Translations: [Acute pharyngitis, unspecified] 10-18-2021 Episodic Residual codes; unclassified (20 sources) Overweight; Translations: [Other specified conditions influencing health status] 03-09-2021 Episodic Residual codes; unclassified (20 sources) Family history of coronary arteriosclerosis; Translations: [Family history of ischemic heart disease and other diseases of the circulatory system] 03-09-2021 Episodic Spondylosis; intervertebral disc disorders; other back problems (20 sources) Degeneration of cervical intervertebral disc; Translations: [Other cervical disc degeneration, unspecified cervical region] 03-09-2021 Chronic Comment on above: chronic stress Spondylosis; intervertebral disc disorders; other back problems (20 sources) Radicular syndrome of lower limbs; Translations: [Radiculopathy, site unspecified] 06-02-2021 Episodic Sprains and strains (20 sources) Strain of knee; Translations: [Strain of unspecified muscle(s) and tendon(s) at lower leg level, left leg, initial encounter] 04-01-2015 Episodic Thyroid disorders (20 sources) Hypothyroidism; Translations: [Hypothyroidism, unspecified] 07-16-2024 Chronic Unclassified (20 sources) LAB DRAW - The labs drawn today include: Lipid Panel and TSH. The lab was ordered by Belkis PILLAI 03-04-2023 Unclassified (7 sources) UTI, Chronic - Note for Chronic UTIs: Is seeing Dr. Forrest - see notes from 05/30/2021 - Is self cathing 4 times a day but is having trouble. Is still experiencing burning and frequency. Dr. Forrest did a Culture but Trish has not heard anything. Is scheduled for US on 06/12/2021 06-02-2021 Unclassified (7 sources) [ADDITIONAL REASON] Hypothyroidism, Unspecified - The last clinic visit was 3 month(s) ago. Note for Unspecified hypothyroidism: Is having weight gain. Is having leg pain and energy level is low 06-02-2021 Unclassified (20 sources) LAB DRAW - The labs drawn today include: TSH. The lab was drawn from the left antecubital vein. The lab was ordered by Belkis CRISTINA-Verito 02-10-2020 Unclassified (20 sources) LAB DRAW - The labs drawn today include: TSH. The lab was ordered by Belkis HUFFMANP-Dragan. 11-30-2019 Unclassified (20 sources) LAB DRAW - The lab was ordered by Belkis Auguste [facility]Dragan. 09-28-2019 Unclassified (20 sources) LAB DRAW - The labs drawn today include: CMP and Lipid Panel. The lab was drawn from the left antecubital vein. The lab was ordered by Dr. Jonathan [place]. 07-09-2017 Unclassified (7 sources) Abdominal distention - The abdominal distention has been occurring for 1 month. The symptoms have been associated with bloating, constipation (chronic) and dysuria, while the symptoms have not been associated with diarrhea. 03-16-2016 Unclassified (20 sources) Routine Check - Note for Routine Check : . 04-09-2014 Unclassified (20 sources) Hypothyroidism, Unspecified - The last clinic visit was 3 month(s) ago. Note for Unspecified hypothyroidism: Is having weight gain. Is having leg pain and energy level is low 06-02-2021 Unclassified (20 sources) [ADDITIONAL REASON] UTI, Chronic - Note for Chronic UTIs: Is seeing Dr. Forrest - see notes from 05/30/2021 - Is self cathing 4 times a day but is having trouble. Is still experiencing burning and frequency. Dr. Forrest did a Culture but Trish has not heard anything. Is scheduled for US on 06/12/2021 06-02-2021 Unclassified (20 sources) [ADDITIONAL REASON] Abdominal distention - The abdominal distention has been occurring for 1 month. The symptoms have been associated with bloating, constipation (chronic) and dysuria, while the symptoms have not been associated with diarrhea. 03-16-2016 Unclassified (1 source) Mammographic extreme density, bilateral breasts; Translations: [Mammographic extreme density, bilateral breasts] Onset: 03-02-2025 Unclassified (1 source) Mammographic fibroglandular density, bilateral breasts; Translations: [Mammographic fibroglandular density, bilateral breasts] Onset: 03-02-2025 Urinary tract infections (20 sources) Urinary tract infectious disease; Translations: [Urinary tract infection, site not specified] Onset: 09-21-2025 02-23-2025 Episodic Past or Other Problems Problem Classification Problem Date Documented Date Episodic/Chronic Coronary atherosclerosis and other heart disease (20 sources) Coronary atherosclerosis and other heart disease 03-04-2023 Headache; including migraine (20 sources) Headache; including migraine 03-21-2020 Other connective tissue disease (2 sources) Myalgia, unspecified site; Translations: [Myalgia, unspecified site] Onset: 03-04-2023 Episodic Unclassified (20 sources) Hypothyroidism, Unspecified - Symptoms include cold intolerance, fatigue, weakness, hair loss and dry skin, while symptoms do not include leg swelling. Note for Unspecified hypothyroidism: Pt. voices difficulty losing weight. Pt. has flat affect. 07-16-2024 Unclassified (20 sources) Cough - Note for Cough: Pt. reports started with nasal congestion 5 days ago, used Flonase and OTC allergy medication without improvement. States symptoms worsened and included harsh productive (clear sputum) cough, body aches and chills. Reports chest feels wheezy and throat is itchy. 08-06-2023 Unclassified (20 sources) !Patient notification of lab results - CAROLE Vera. The test(s) that you had done were/was blood work. Your tests were not to goal You should call our office to schedule a referral and if you have any questions. Please follow up as scheduled. Note for !Patient notification of lab results : Your tests showed some inflammation. If you would like to see a specialist for this, please let me know. Thanks! 03-07-2023 Unclassified (8 sources) [ADDITIONAL REASON] Hypothyroidism, Unspecified - Note for Unspecified hypothyroidism: Pt denies fatigue unless legs hurt (back issues for years). 03-04-2023 Unclassified (20 sources) !Patient notification of lab results - CAROLE Vera. The test(s) that you had done were/was blood work. Your tests showed the following abnormalities: elevated cholesterol . You should call our office if you have any questions. Please follow up as scheduled. Note for !Patient notification of lab results : Your cholesterol is still very high. In addition to diet and exercise we need to start you on a medication to lower your risk of heart attack and stroke. Please call if you are willing to do this. Thanks! 12-13-2022 Unclassified (8 sources) Seasonal Allergy - Note for Seasonal allergies: itchy eyes, itchy throat 09-10-2022 Unclassified (8 sources) [ADDITIONAL REASON] Thyroid disorder - Note for Thyroid disorder: hot-flashes 09-10-2022 Unclassified (20 sources) Cough - The cough has been occurring for 3 days. Note for Cough: Started with dry cough 10/16, cough remains nonproductive. Today has sore throat and ear pressure. Denies sinus-type symptoms. Has been afebrile. Thinks had COVID Jan 2021 ( lost taste/smell ). No COVID vaccine. 10-18-2021 Unclassified (20 sources) !Patient notification of lab results - CAROLE Vera. The test(s) that you had done were/was blood work. The results of your testing were normal . You should call our office if you have any questions. Please follow up as scheduled and let us know if your symptoms do not improve. Note for !Patient notification of lab results : Thyroid, kidneys, blood sugar, and all other labs looked great. Please call with any questions. Thanks! 06-03-2021 Unclassified (20 sources) UTI* - The urinary symptoms are described as painful urination, frequency, flank pain and burning. The symptoms have been occurring for 2 weeks and have been increasing. The urine is described as clear. The symptoms have been associated with fever and abdominal pain. 03-09-2021 Unclassified (20 sources) Thyroid problems - Note for Thyroid problems: notices she feels jittery if she misses a dose 09-19-2020 Unclassified (20 sources) !Patient notification of lab results - CAROLE Vera. The test(s) that you had done were/was a TSH (thyroid). The results of your testing were stable for your medical condition . You should call our office if you have any questions. Please follow up as scheduled. Note for !Patient notification of lab results : Your TSH, T3, and T4 were all in the normal range. Your TSH was at the very upper limit but as long as you feel ok, I wouldn't adjust your medications. 03-23-2020 Unclassified (11 sources) [ADDITIONAL REASON] Hypothyroidism, Unspecified - Note for Unspecified hypothyroidism: Needs medication refill. Had TSH done in January. 03-21-2020 Unclassified (20 sources) !Patient notification of lab results - CAROLE Vera. The test(s) that you had done were/was a TSH (thyroid). The results of your testing were to goal . You should call our office if you have any questions. Please continue your current medication/therapy and follow up as scheduled. 02-11-2020 Unclassified (20 sources) !Patient notification of lab results - CAROLE Vera. The test(s) that you had done were/was a TSH (thyroid). Your tests showed the following abnormalities: thyroid is too suppressed . Please realize that we have sent the new prescription(s) to your preferred pharmacy. You should call our office if you have any questions. Please let us know if your symptoms do not improve. Note for !Patient notification of lab results : We will again repeat labs in 6-8 weeks after changing the dose. Thanks! 12-02-2019 Unclassified (20 sources) !Patient notification of lab results - CAROLE Vera. The test(s) that you had done were/was a TSH (thyroid). Your tests showed the following abnormalities: thyroid is too suppressed . Please realize that we have sent the new prescription(s) to your preferred pharmacy. You should call our office if you have any questions. Please let us know if your symptoms do not improve. Note for !Patient notification of lab results : Please come back to recheck on your new dose in 6 weeks. It can take a while to get the dose right, but once we do, we don't have to check as often. Let us know if your headaches are better as well. 09-30-2019 Unclassified (6 sources) Hypothyroidism, Unspecified - Symptoms include weight gain and leg swelling (intermittant.), while symptoms do not include fatigue or weakness. Note for Unspecified hypothyroidism: Pt had labwork done and TSH is high. Pt taking OTC thyroid supplement. Migraines all the time. 08-17-2019 Unclassified (20 sources) !Patient notification of lab results - [place]. The test(s) that you had done were/was blood work. The results of your testing were normal (except for high cholesterol) . Please note that we have included copies of your results. 12-13-2018 Unclassified (20 sources) hands swollen and itchy - Has had since fall, sometimes itching worse than other times. 12-12-2018 Unclassified (20 sources) !Patient notification of lab results - [place]. The test(s) that you had done were/was a thyroid panel and a lipid panel (cholesterol and triglycerides). Your tests showed the following abnormalities: cholesterol is very high again. Thyroid tests are considered normal . Please adjust your therapy by starting pravastatin 10 mg 1/2 tablet daily for cholesterol. You should call our office for a new prescription. Please note that we have included copies of your results and follow up as scheduled (plan to recheck cholesterol level at next visit). 01-04-2018 Unclassified (20 sources) !Patient notification of lab results - [place]. The test(s) that you had done were/was a CMP (kidneys, liver, nutrition, sugar) and a lipid panel (cholesterol and triglycerides). The results of your testing were normal (except for high triglycerides) . Please note that we have included copies of your results and follow up as scheduled. 07-10-2017 Unclassified (20 sources) !Patient notification of lab results - [place]. The test(s) that you had done were/was blood work. The results of your testing were stable for your medical condition (thyroid is considered to be in the normal range) . Your tests showed the following abnormalities: high cholesterol . Please note that we have included copies of your results and follow up as scheduled. 12-21-2016 Unclassified (9 sources) Thyroid problems - Note for Thyroid problems: Had elevated TSH Taking natural vitamins, iodine, selenium, vit E, B12 12-21-2016 Unclassified (5 sources) Hypothyroidism, Unspecified - Symptoms include fatigue. Note for Unspecified hypothyroidism: New diagnosis from BIOLOGICAL SCIENCE AIDE. Lab done 07/17/16, TSH 5/790 07-27-2016 Unclassified (5 sources) [ADDITIONAL REASON] Routine Check - Patient is here to review the medical problem(s) of depression (anxiety) and other: ____ (migraines). Patient is compliant with medications as directed Note for Routine Check : Saw Dr Serra (BIOLOGICAL SCIENCE AIDE) for vaginal bleeding. U/S, endometrial bx and CT done. Showed R renal cyst and tiny umbilical hernia.. 07-27-2016 Unclassified (20 sources) !Patient notification of lab results 1 - [place]. The test(s) that you had done were/was a vitamin B 12 level. The results of your testing were normal (in fact it is a bit high) . Please note that we have included copies of your results. 10-15-2015 Unclassified (20 sources) [ADDITIONAL REASON] Routine Check - Patient is here to review the medical problem(s) of other: ____. Patient is complient with medications as directed The patient feels well with minor complaints (Pt is thinking perhaps her medication is causing her to gain weight. ). Note for Routine Check : . 04-01-2015 Unclassified (4 sources) Abdominal pain - The course has been decreasing. 11-20-2013 Unclassified (20 sources) !Patient notification of lab results 1 - [place]. The test(s) that you had done were/was an ultrasound exam. The results of your testing were normal (no gallstones) . Please follow up as scheduled. 11-10-2013 Unclassified (20 sources) !Patient notification of lab results 1 - [place]. The test(s) that you had done were/was blood work. The results of your testing were normal (except for mildly elevated cholesterol) . Please note that we have included copies of your results, continue your current medication/therapy (as prescribed at your last office visit) and follow up as scheduled (call sooner if your condition is worsening). 11-04-2013 Unclassified (20 sources) !Patient notification of lab results 1 - Dr. Johnson. Note for !Patient notification of lab results 1: C-Diff Toxin, Stool Cult. NEGATIVENo change in treatment plan. 07-27-2011 Unclassified (20 sources) Bloody stools - The bloody stools have been occurring for 1 day. The symptoms have been associated with diarrhea. 07-19-2011 Unclassified (20 sources) Diarrhea - The onset of the diarrhea has been acute and has been occurring in a persistent pattern for 3 days. The course has been decreasing. The stools are watery. The symptoms have been associated with abdominal pain, fever (101.7), nausea, nocturnal bowel movements and weakness, while the symptoms have not been associated with recent travel to tropics or vomiting. Note for Diarrhea: also has white patches on tongue. pt taking OTC anti-diarrhea meds and says that she is feeling a little better. 07-17-2011 Unclassified (20 sources) Vomiting - The vomiting has been occurring for 3 days. The symptoms have been associated with abdominal pain and fever. 03-14-2011 Unclassified (20 sources) [ADDITIONAL REASON] Sinus pain - The pain has been occurring for 2 days. 03-14-2011 Unclassified (20 sources) Hypothyroidism, Unspecified - Note for Unspecified hypothyroidism: Pt denies fatigue unless legs hurt (back issues for years). 03-04-2023 Unclassified (20 sources) Thyroid disorder - Note for Thyroid disorder: hot-flashes 09-10-2022 Unclassified (20 sources) [ADDITIONAL REASON] Seasonal Allergy - Note for Seasonal allergies: itchy eyes, itchy throat 09-10-2022 Unclassified (20 sources) Hypothyroidism, Unspecified - Note for Unspecified hypothyroidism: Needs medication refill. Had TSH done in January. 03-21-2020 Unclassified (20 sources) [ADDITIONAL REASON] Hypothyroidism, Unspecified - Symptoms include weight gain and leg swelling (intermittant.), while symptoms do not include fatigue or weakness. Note for Unspecified hypothyroidism: Pt had labwork done and TSH is high. Pt taking OTC thyroid supplement. Migraines all the time. 08-17-2019 Unclassified (20 sources) [ADDITIONAL REASON] Thyroid problems - Note for Thyroid problems: Had elevated TSH Taking natural vitamins, iodine, selenium, vit E, B12 12-21-2016 Unclassified (20 sources) Routine Check - Patient is here to review the medical problem(s) of depression (anxiety) and other: ____ (migraines). Patient is compliant with medications as directed Note for Routine Check : Saw Dr Serra (BIOLOGICAL SCIENCE AIDE) for vaginal bleeding. U/S, endometrial bx and CT done. Showed R renal cyst and tiny umbilical hernia.. 07-27-2016 Unclassified (20 sources) [ADDITIONAL REASON] Hypothyroidism, Unspecified - Symptoms include fatigue. Note for Unspecified hypothyroidism: New diagnosis from BIOLOGICAL SCIENCE AIDE. Lab done 07/17/16, TSH 5/790 07-27-2016 Unclassified (20 sources) [ADDITIONAL REASON] Abdominal pain - The course has been decreasing. 11-20-2013 Unclassified (20 sources) !Patient notification of lab results - CAROLE Vera. The test(s) that you had done were/was a TSH (thyroid). The results of your testing were to goal . You should call our office if you have any questions. Please follow up as scheduled. 07-17-2024 Unclassified (5 sources) Sinus pain - The pain has been occurring for 2 days. 03-14-2011 Unclassified (5 sources) [ADDITIONAL REASON] Vomiting - The vomiting has been occurring for 3 days. The symptoms have been associated with abdominal pain and fever. 03-14-2011 Unclassified (20 sources) Abdominal Pain, Female - Note for Abdominal pain: Pt. reports low abdominal pain, notes herniation midline low abdomen. Also reports urinary retention, occasional dysuria. Seen by BIOLOGICAL SCIENCE AIDE, had u/s of uterus and ovaries = WNL. Pt. also referred to Urologist, Dr. Alyx Randhawa - appt. 03/17/25. 02-23-2025 Unclassified (12 sources) !Patient notification of lab results - Michelle LAM. The test(s) that you had done were/was urine culture. You should call our office if you have any questions. Note for !Patient notification of lab results : Your urine culture does confirm a UTI. You are on the correct medication based on these results. Finish out the antibiotics as directed. 02-26-2025 Unclassified (9 sources) !Patient notification of lab results - Michelle LAM. The test(s) that you had done were/was an ultrasound exam. You should call our office if you have any questions. Note for !Patient notification of lab results : The bladder ultrasound was normal and did not show any abnormalities to the bladder or bladder wall. Keep your follow up as scheduled with urology as they may need to do some further testing given your symptoms.The abdominal ultrasound did show a small right renal cyst and some fatty changes to the liver. I recommend monitoring your diet and avoiding excessive fatty foods. Try to exercise a little more. We can follow up with some lab tests to check your liver at your next appt to monitor. 03-04-2025 Unclassified (7 sources) Cold Symptoms - Symptoms include sneezing, nasal congestion, sore throat, dry cough, facial pain and headache. Onset was sudden 1 week(s) ago. Associated symptoms include ear pain, while associated symptoms do not include fever. Current treatment includes increased fluid intake and non-prescription cold medication. 04-19-2025 Unclassified (4 sources) Hypothyroidism, Unspecified - Symptoms include hair loss and dry skin, while symptoms do not include fatigue or weakness. 10-05-2025 Unclassified (4 sources) [ADDITIONAL REASON] Urinary Tract Problems - Note for Urinary tract problems: Seeing Alyx Chambers in [place]. 10-05-2025 Unclassified (2 sources) !Patient notification of lab results - Michelle CRISTINA-Dragan. The test(s) that you had done were/was a T4, T3 (thyroid labs) and a TSH (thyroid). The results of your testing were normal . Note for !Patient notification of lab results : Continue on the same dose. I'll send it to the pharmacy. Can plan to follow up in 1 year to recheck thyroid levels (or sooner if anything feels off). 10-06-2025 Results Test Name Value Interpretation Reference Range Facility No Panel [facility]on 10-06 [facility], [facility]. [facility].; [facility], [facility]. Laboratory - Chemistry and C hemistry - challengeon 10-05-2025 Free T3 [Mass/Vol] 2.9 pg/mL Normal 2.0 - 4.4 pg/mL [facility].; [facility], [facility]. Free T4 [Mass/Vol] 1.18 ng/dL Normal 0.82 - 1. 77 ng/dL [facility].; [facility], [facility]. TSH Qn 2.560 {uIU/mL} Normal 0.450 - 4.500 {uIU/mL} [facility], [facility].; [facility], [place]. No Panel Informationon 10-05 [facility] [place]. [facility] [place]. PT D/C Summary (1)on 025 PT D/C Summary (1) [facility]. [address] [place] [address] / REHABILITATION SERVICES DISCHARGE SUMMARY MR#: [id number] Acct: [id number] Name: TRISH TIPTON Rep #: [id number] : 1960 65 From: Sofie Peck Referring Dr.: Dr. Alyx Chambers MD Status: [facility] Insurance: MEDICARE PART A B [facility] Discharge Summary D/C summary: It has been my pleasure to treat TRISH TIPTON referred by Dr. Alyx Chambers MD, with the diagnosis of LBP, lower abdominal pain for a total of 12 visit(s). Discharge Date: 09/30/25 Please see the following information for a summary of their discharge status. Subjective Subjective: She has a constant pain in her vaginal area. She states she has had on and off infections. She saw Dr. Chambers and she started her on Uro-mp to help with the pain in the vaginal area. She hasn't seen much of a change. She also started her on Gemtessa to treat the overactive bladder. Dr. Chambers ordered a cystoscopy on . Nothing has helped with the burning. Her initial problem when she started PT was that she couldn't fully empty her bladder. That has somewhat improved (20% improved). Pain is averaging 10/10. She feels lower abdominal pressure as well. She also tried 5 lymphatic treatments which made her feel better overall but didn't change vaginal symptoms. No complaints of low back pain. Pain abdominal pain: Pain Intensity (Out of 10): 0 LOW BACK PAIN: Pain Intensity (Out of 10): 4 Overall Improvement % Improvement: 0 Objective Objective/Function: Unfortunately Trish did not notice much improvement in her pain levels with PT She has continued the pelvic floor strengthening exercises and finds those helpful. She reports about 20% improvement in her ability to empty her bladder which was a concern when she started. She continues to have pretty constant vaginal pain and pressure in the pubic region. Recommending she continue care with Dr. Chambers . She is scheduled for a cystoscopy in October. Goals Goal 1:: evaluated by womens health therapist and POC adjusted as needed Goal Progress: Progressing Goal 2:: I appropriate HEP for core, hip, pelvic strength and LB ROM to minimize future symptoms. Goal Progress: Progressing Goal 3:: walk 30 minutes without symptoms Goal Progress: Not Progressing Goal 4:: oswestry score 5 or better Goal Progress: Not Progressing Plan Plan: D/C from PT . She has met her max rehab potential. D/C Information Discharge Comments: Trish has met her max rehab potential and is being discharged. She will be continuing care and following up with Dr. Chambers. d/c sentence: If there are questions or concerns regarding this patient's physical therapy, please feel free to call me at [phone]. Thank you for the referral of this patient. Sincerely, Sofie Peck Balance/Gait/Function al tests Balance/Special Test Scores Oswestry Low Back Score: 13 Improvement % Improvement: 0 09/30/25 8211 CC: Dr. Alyx Chambers MD; No Primary Care Physician MG Signed Normal [facility] Laboratory - Chemistry and C hemistry - challengeOrdered By: Alyx Chambers on 09-21-2025 Bilirubin Ql (U) Negative [facility] Glucose Ql (U) Negative [facility] Ketones Ql (U) Negative [facility] pH (U) 7.5 [pH] [facility] Specific gravity (U) [Rel density] 1.005 [facility] Urobilinogen (U) [Mass/Vol] 0.1259756 mg/dL [facility] Laboratory - Hematology and Cell countsOrdered By: Alyx Chambers on 09-21-2025 Hemoglobin Ql (U) Trace [facility] Laboratory - UrinalysisOrder ed By: Alyx Chambers on 09-21-2025 Nitrite Ql (U) Positive [facility] Protein Ql (U) Negative [facility] [facility] [place] MR/Danya 09-21-2025 MR/RAH [facility] [address] [facility] [address], [address] [place] [address] OFFICE VISIT Date of Service: 09/21/25 MR#: [id number] Acct: [id number] Name: TRISH TIPTON Rep #: [id number] : 1960 Provider: Dr. 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 Required: No Accompanied by: Self Is patient in pain?: No Allergies codeine Allergy (Verified 09/21/25 10:48) itching Penicillins Allergy (Verified 09/21/25 10:48) Rash Sulfa (Sulfonamide Antibiotics) Adverse Reaction (Verified 09/21/25 10:48) Vomiting Medications ???Medication ???Instructions ???Recorded ???Confirmed ???Type estradiol 0.01% (0.1 mg/gram) 1 g vaginal 3XW 08/24/25 09/21/25 History vaginal cream levothyroxine 50 mcg tablet 50 mcg PO 08/24/25 09/21/25 Histor y multivitamin 1 tab PO QAM 08/24/25 09/21/25 His tory Bladder health PO 09/21/25 09/21/25 History methenam 118 mg-m.blue 10 1 tab PO .qid PRN pain #90 caps 09/21/25 Rx mg-s.phos 40.8 mg-p.salic 36 mg-hyos capsule (Uro-MP) nitrofurantoin 100 mg PO BID #6 caps 09/21/25 Rx monohydrate/macrocrys tals 100 mg capsule (Macrobid) vitamin B complex 1 tab PO QDAY 09/21/25 09/21/25 Hi story Have you fallen in the past year?: No Nurse's Note: felt like the gemtesa made things worse, she stopped the gemtsa d/t uti side effets. still having burning and discomfort. Bladder scan PVR: 17[facility] Medical History History of mammogram History of Papanicolaou smear of cervix Seasonal allergies Radiculopathy of leg Myalgia Migraine without aura Insomnia Irritable bowel syndrome with constipation Hyperlipidemia GERD (gastroesophageal reflux disease) Degenerative disc disease, cervical UTI (urinary tract infection) Migraines Thyroid disease Anxiety and depression Vaginal atrophy Asymptomatic bacteriuria Nocturia Constipation Pelvic and perineal pain Surgical History History of delivery History of appendectomy History of ovarian cystectomy Family History Brother CAD (coronary artery disease) Heart disease Father Lymphoma Heart disease Grandmother Lymphoma Uncle Cancer Prostate. Mother Colon cancer Breast cancer Other Diabetes Social History Smoking Status: Never smoker alcohol intake: never HPI HPI Urology Chief Complaint: 4 week gemtesa follow up Details: TRISH TIPTON, is a 65 F. She is here for medication follow up. She was taking Gemtesa 75mg daily. She was having side effects from the medication. Her bladder spasms were worse. Stopped it after 6 days. She reports that she is using estrogen cream. She has added D-mannose and it does seem to help her. She is not having burning every day. I tried to pinpoint the specifics of the burning, but she has a hard time with this. She thinks the burning is in the urethra. It is happening a few times a week maybe. It is worse when she cannot drink enough water. Walking helps it. If she is not able to move around, sits too long like in car, it is worse. We discussed using the suppositories when this happens. She has another physical therapy appointment this month. Antibiotics did not. We discussed all of things we have done to help with the burning and why. ROS Const Constitutional: No chills, fatigue, fever(s), headache(s), night sweats, weakness, weight change, abnormal sleep pattern or change in appetite Eyes Eyes: No change in vision ENT ENT: No headache(s) or dry mouth Resp Respiratory: No cough, chest congestion, shortness of breath or wheezing Cardio Cardiology: Positive for other (No chest pain.); No shortness of breath, irregular heart rhythm or lightheadedness Gastro GI: Positive for other (No nausea.); No abdominal pain, change in bowel habits, constipation, diarrhea or vomiting Musc Musculoskeletal: No abnormal gait Skin Skin: No yellowing of the eye, lesions, itchy eyes, rash or skin ulcer Neuro Neurology: No abnormal gait, confusion, dizziness, weakness, headache(s) or memory loss Psych Psychiatric: No abnormal sleep pattern, No change in appetite, No confusion and No memory loss Endo Endocrine: No fatigue, increased thirst/drinking or weight change Aller/Imm Allergy/Immunologic: No itchy eyes or wheezing Cesar/Lymp Hematologic/Lymphatic : No easy bleeding, easy (more content not included)... Normal [facility] No Panel InformationOrdered By: Alyx Chambers on 09-21-2025 Urine Leukocytes Positive [facility] Urine Non-Hemolyzed Blood Negative [facility] No Panel Informationon 08-31 [facility].; [facility], [facility]. [facility].; [facility]. Laboratory - Chemistry and C hemistry - challengeOrdered By: Alyx Chambers on 08-24-2025 Bilirubin Ql (U) Negative [facility] Glucose Ql (U) Negative [facility] Ketones Ql (U) Negative [facility] pH (U) 7 [pH] [facility] Specific gravity (U) [Rel density] 1.005 [facility] [place] Urobilinogen (U) [Mass/Vol] 0.5552866 mg/dL [facility] [place] Laboratory - Hematology and Cell countsOrdered By: Alyx Chambers on 08-24-2025 Hemoglobin Ql (U) Trace [facility] [place] Laboratory - UrinalysisOrder ed By: Alyx Chambers on 08-24-2025 Nitrite Ql (U) Negative [facility] Protein Ql (U) Negative [facility] MR/Danya 08-24-2025 MR/RAH [facility] [address], [address] [place] [address] OFFICE VISIT Date of Service: 08/24/25 MR#: [id number] Acct: [id number] Name: TRISH TIPTON Rep #: [id number] : 1960 Provider: Dr. 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 Required: No Accompanied by: self Is patient in pain?: No Allergies codeine Allergy (Verified 08/24/25 09:59) itching Medications ???Medication ???Instructions ???Recorded ???Confirmed ???Type azithromycin 250 mg tablet mg PO 08/24/25 08/24/25 History estradiol 0.01% (0.1 mg/gram) 1 g vaginal 3XW 08/24/25 08/24/25 History vaginal cream levothyroxine 50 mcg tablet 50 mcg PO 08/24/25 08/24/25 Histor y multivitamin 1 tab PO QAM 08/24/25 08/24/25 His tory Have you fallen in the past year?: No Nurse's Note: PFPT helped some, Suppositories- she doesn't quite understand them and would like clarification. not seen a difference with the estrogen cream, doesnt know what to expect. Patient reports feeling lost. Burnign in vaginal folds- monostat 7 helps. occasional itching. [facility] Medical History (Updated 08/24/25 @ 10:[address] Alyx Chambers MD) Vaginal atrophy Asymptomatic bacteriuria Nocturia Constipation Pelvic and perineal pain HPI [facility] Urology Chief Complaint: 3 month follow up Details: TRISH TIPTON, is a 65 F. Here for follow up after pelvic floor physical therapy, suppositories and vaginal estrogen cream. She had a horrible experience with Eliza and a male therapist. She finally had another 4 appointments with Sofie and this was better. She has a follow up with her in September. She is still having a fullness in her bladder. During the day she is voiding about 5 times, during the night she voids 2-3 times. She is not limiting fluids before bed. There is no incontinence. She has resolution of her fullness immediately after voiding. She has no gross hematuria. She has vaginal burning and Monistat 7 helps. She is also having itching. She is not using the estrogen cream. We discussed why and how and she will be more diligent with this. She is concerned that she may have a vaginal infection today. No discharge or odor, just external itching and burning. ROS Const Constitutional: No chills, fatigue, fever(s), headache(s), night sweats, weakness, weight change, abnormal sleep pattern or change in appetite Eyes Eyes: Positive for eye pain; No change in vision ENT ENT: No headache(s) or dry mouth Resp Respiratory: No cough, chest congestion, shortness of breath or wheezing Cardio Cardiology: Positive for other (No chest pain.); No shortness of breath, irregular heart rhythm or lightheadedness Gastro GI: Positive for other (No nausea.); No abdominal pain, change in bowel habits, constipation, diarrhea or vomiting Musc Musculoskeletal: No abnormal gait Skin Skin: No yellowing of the eye, lesions, itchy eyes, rash or skin ulcer Neuro Neurology: No abnormal gait, confusion, dizziness, weakness, headache(s) or memory loss Psych Psychiatric: No abnormal sleep pattern, No change in appetite, No confusion and No memory loss Endo Endocrine: No fatigue, increased thirst/drinking or weight change Aller/Imm Allergy/Immunologic: No itchy eyes or wheezing Cesar/Lymp Hematologic/Lymphatic : No easy bleeding, easy bruising or enlarged lymph nodes Exam Const General: cooperative, healthy appearing, comfortable and no acute distress [facility] Head: normocephalic and atraumatic Ears: hearing grossly normal bilaterally and external ears normal Nose: external nose normal Eyes General: appearance normal, both eyes and all related structures Neck Neck: normal visual inspection and trachea midline Chest Chest palpation inspection: normal inspection of the chest Resp Effort Inspection: normal respiratory effort, able to speak in complete sentences and symmetric chest movement Cardio Rate: regular rate GI Inspection: normal to inspection Palpation: soft and nontender General: No CVA tenderness External Female Exam: normal external appearance, normal appearance of the urethra and other (the vulva is where she isolates the itching to. There are no lesions seen.) Urethra: normal appearance of the urethra Speculum Exam - Vagina: normal vaginal discharge, vagina atrophic, no lesions, No vaginal bleeding and other (no odor, swab sent for culture) Bimanual Exam- Adnexa, other: cystocele (improved) Pelvic Support: cystocele (improved) mild OB/External Speculum: No vaginal bleeding Speculum Exam: no vaginal bleeding Skin General: no rashes or lesions noted (more content not included)... Normal [facility] No Panel InformationOrdered By: Alyx Chambers on 08-24-2025 Urine Leukocytes Negatve [facility] Urine Non-Hemolyzed Blood Negative [facility] No Panel Informationon 04-19 [facility]; [facility] Inital Evaluation (1) - PTon 03-25-2025 Inital Evaluation (1) - PT [facility] [place] Physical Therapy Health[address] [place] [id number] / REHABILITATION SERVICES INITIAL EVALUATION MR#: [id number] Acct: [id number] Name: TRISH TIPTON Rep #: [id number] : 1960 65 From: John Nicholson DPT, OCS, CSCS Referring Dr.: Dr. Alyx Chambers MD Status: RE G R Insurance: MEDICARE PART A B [facility] Patient's Visit Information Visit Information Visit Information: TRISH TIPTON is a 65 year old F referred to Physical Therapy by Dr. Alyx Chambers MD with a diagnosis of LBP, lower abdominal pain. Date of Evaluation: 03/25/25 Physical Therapist: John Nicholson DPT, OCS, CSCS Visit Plan Frequency: 1x/Week Duration: 4-6 Weeks Plan: weekly(pt choice due to long drive and busy schedule, willing to work at home) for [employer] PT eval next session and POC adjusted as needed. Progression of core, postural, pelvic and hip /LE strength ex via HEP, progression of lumbar ROM exercises to tolerance and ensure progression of walking. IE HEP: YTB supine hip abd, ball squeeze supine for hip add, pelvic tilt, all 2x10 2x/day and eis 2x10 2x/day, HO given and performed in PT today Eliza Marques PT to see next session and progress ex, eval women's health/pelvic Subjective Subjective: Had US for her pain and has no hernia. Has pain in lower abdomen and felt like things are falling out and has bladder infection and prolapsed bladder partially. Darrius intermittent LBP also and sore to push on. Chiropractor regularly. Symptoms since January and for no obvious reason. No other diagnostics. Pain is constant and described as not feeling right. Has granddaughters who are 35# and can feel it lifting them adn it makes it worse. Sitting at sewing machine can also cause it but gone with walking then. H/o c/ section and ovaries removed. Sleep is OK rolls around alot. Bladder cannot empty sometimes. Activity : avoids outside work due to bending making her worse. Basic ADLs: all I. No regular exercises but has a little trampoline but it makes her worse so avoids it. Pain abdominal pain: Pain Intensity (Out of 10): 0 Pain Intensity Range: 0 and 4 Objective Objective: Walks into PT slowly but I, [employer] chair and bed I. Steps reciprocal with one rail. No balance deficits L hip. Lumbar multisegmental AROM ext max limited and pinches midline LB and pulling sensation in front with slight bulge at belly, no pain. SB are WFL and painfree. Flexion is WFL and painfree. LE AROM WFL, tightness obvious in HS B at -30 90/90 test and minimally in quads into psoas with hip ext PROM B to 5 degrees. Hip other PROM er 50 B, flexion 110 R and 100 L with some lateral pain L, + FADDIR L hip. IR painful L not r. knee and ankle aROM WFL B. reflexes 1/3 patella adn achilles B. Sensation to gross light touch B LE WNL. SI testing with bad, add, hip rotation and compression/shear all in supine or S/L all wFL and without pain. strength hip abd and ext weak B 3/5, rotations 3+/5, flexion 4- /5, knees 3+ ext adn 4- flexion B without pain. ankles 4+/5 B. core strength abds 3 and ext 3, no pain. Tender to palpation throughout L ghluts and ITB and trochanter area moderately not present on R. Parapsinals are not tender to palpation.Not overly tender to palpation in abdominal area L or R. Balance/Special Test Scores Oswestry Low Back Score: 13 Goals Goal 1:: evaluated by womens health therapist and POC adjusted as needed Goal Time Frame: 2 Weeks Goal 2:: I appropriate HEP for core, hip, pelvic strength and LB ROM to minimize future symptoms. Goal Time Frame: 4-6 Weeks Goal 3:: walk 30 minutes without symptoms Goal Time Frame: 4-6 Weeks Goal 4:: oswestry score 5 or better Goal Time Frame: 4-6 Weeks Rehabilitation Potential Physical Therapy Diagnosis: limited ROM and weakness creating instability adn pain abdomen and LB. Rehabilitation Potential: Fair Anticipated Interventions Patient/Client Instruction: Educate patient on: Condition and Plan of Care For the Purpose of:: To decrease pain, To increase ROM, To improve nutrient delivery to tissue, To improve muscle performance and motor function, To improve ability of physical actions for home/community/work/l eisure and To improve gait and locomotor functions Therapeutic Exercise to Include: Strength training, Postural training, Passive ROM and Active ROM For the Purpose of:: To decrease pain, To increase ROM, To improve nutrient delivery to tissue, To improve muscle performance and motor function, To increase tolerance to activity/condition/po sition, To decrease soft tissue restriction and To increase flexibility/ROM Manual Therapy Techniques to Include: Passive ROM and Soft tissue mobilization For the Purpose of:: To decrease pain, To increase ROM, To improve nutrient delivery to tissue, To improve muscle performance and addy (more content not included)... Normal [facility] No Panel Informationon 03-04 [facility] MA MAMMOGRAM SCREENING BILAT ERAL W/TOMOon 03-03-2025 MA MAMMOGRAM SCREENING BILATERAL W/TANYA ORIGINAL FROM: [place] [address] PROCEDURE FOR: TRISH L. TIPTON [address] [place] [address] Home: PID#: [id number] Exam#: [id number] : 1960 Age: 65 TO: JUWAN SERRA MD [facility] [address] [place] [id number] EXAMINATION: SCREENING DIGITAL BILATERAL MAMMOGRAM WITH TOMOSYNTHESIS, 03/02/2025 10:55 am TECHNIQUE: Screening mammography of the bilateral breasts was performed with tomosynthesis. 2D standard and 3D tomosynthesis combination imaging performed through both breasts in the MLO and CC projection. Computer aided detection was utilized in the interpretation of this exam. COMPARISON: February 11, 2024, January 02, 2024, November 28, 2022 HISTORY: Breast cancer screening. FINDINGS: BREAST DENSITY: The breasts are extremely dense, which lowers the sensitivity of mammography. There are bilateral benign-type calcifications. There is no significant mass, architectural distortion or microcalcification. Fibroglandular pattern is stable. IMPRESSION: No mammographic evidence of malignancy. Continued screening with annual mammograms is recommended. Consider supplemental annual breast MRI screening given elevated lifetime risk of breast cancer, best performed at six-month intervals between annual screening mammography. Neil Alberto risk calculations, generated with the history provided, report this patient's 10 year risk and lifetime risk for developing breast cancer at 14.2% and 25.6%, respectively. Based on this assessment tool, if the patient's calculated lifetime risk is below 20%, then the patient is considered at average risk for developing breast cancer. If the patient's calculated lifetime risk is at or above 20%, then the patient is considered high risk for developing breast cancer and may be a candidate for supplemental breast MRI screening in addition to annual mammographic screening per the [employer] [employer]. BIRADS: MAMMOGRAM BI-RADS: 2: Benign finding RECALL: 1 year screening RECALL TYPE: mammo LETTER SENT: Normal BI-RADS 1 and 2 Interpreted by: Ingrid Orona Preliminary Report By: Ingrid Orona Electronically signed By Ingrid Orona Dictated Date: 03/03/2025 8:05:35 AM Prelim Date: 03/03/2025 8:08:08 AM Sign Date: 03/03/2025 8:08:08 AM Ordering Provider: JUWAN SERRA Kitchenhand: DARYL BERKOWITZ RT(R)(M) letter sent: Normal BI-RADS 1 and 2 Mammogram BI-RADS: 2 Benign Normal [facility] ABD COMPLETEon 03-03-2025 US ABD [address] [address] Patient: TRISH TIPTON Phone#: : 1960 Age: 65 Gender: F Pt. Type: Out Account: [id number] Location: Ordering: MICHELLE ANDREALABACH Exam Date: 03/03/2025/9:47 Family Phys: Charge Code: [id number] Physician: Reagan Order #: [id number] Dose#: PROCEDURE: ABDOMEN COMPLETE ULTRASOUND COMPARISON: None. INDICATIONS: Suprapubic mass TECHNIQUE: High resolution sonographic examination was performed of the abdomen. FINDINGS: LIVER: Fatty changes of the liver are present. BILIARY: Normal. Normal appearing gallbladder and biliary tree. PANCREAS: Normal. No visible mass, abnormal atrophy, or ductal dilatation. SPLEEN: Normal. Normal size and echotexture. KIDNEYS: There is a 3.8 x 2.2 x 2.9 centimeter right renal cyst. The left kidney is unremarkable. AORTA/VASCULAR: Normal. No aneurysm. OTHER: Negative. CONCLUSION: 1. Right renal cyst. 2. Left kidney, gallbladder and spleen are unremarkable. 3. Fatty changes of the liver. Dictated by: Jaida Oshea MD on 03/03/2025 at 17:07 Approved by: Jaida Oshea MD on 03/03/2025 at 17:11 Normal [facility] US PELVIC (NON OB) LIMITEDon 03-03-2025 PELVIC (NON OB) [address] [address] Patient: TRISH TIPTON Phone#: : 1960 Age: 65 Gender: F Pt. Type: Out Account: [id number] Location: Ordering: MICHELLE PALMA Exam Date: 03/03/2025/10:06 Family Phys: Charge Code: [id number] Physician: Reagan Order #: [id number] Dose#: PROCEDURE: BLADDER ULTRASOUND COMPARISON: None. INDICATIONS: Difficulty empting bladder TECHNIQUE: Ultrasound examination was performed of the bladder. FINDINGS: BLADDER: Normal. No visible wall thickening, mass, or calculus. Prevoid bladder volume is 156 milliliters. Postvoid volume is 33 milliliters. OTHER: Negative. CONCLUSION: 1. 20% postvoid residual. No other focal abnormality. Dictated by: Jaida Oshea MD on 03/03/2025 at 17:11 Approved by: Jadia Oshea MD on 03/03/2025 at 17:13 Normal [facility] No Panel Informationon 02-26 [facility]; [facility] Laboratory - Chemistry and C hemistry - challengeon 02-23-2025 Bilirubin Ql (U) Negative Normal [facility]; [facility] Ketones Ql (U) Negative Normal [facility]; [facility], [facility]. pH (U) 6.0 [pH] Normal [facility], [facility]. Specific gravity (U) [Rel density] 1.015 Normal [facility]; [facility], [facility]. Laboratory - Hematology and Cell countson 02-23-2025 Hemoglobin Ql (U) + Abnormal [facility].; [facility]. Laboratory - Microbiology an d Antimicrobial susceptibilityon 02-23-2025 Bacteria identified Cx Nom (U) Final report Abnormal [facility]; [facility] Bacteria identified Cx Nom (U) Escherichia coli Abnormal [facility] Work Phone: Bacteria identified Cx Nom (U) Not applicable Normal [facility] Work Phone: Other Antibiotic [Susc] Comment Normal [facility].; [facility] Work Phone: Laboratory - Specimen inform ationon 02-23-2025 Appearance (U) CLOUDY Abnormal [facility].; [facility] Color (U) YELLOW Normal [facility] [place]. Laboratory - Urinalysison Glucose Test strip (U) [Mass/Vol] Negative Normal [facility].; [facility] Leukocyte esterase Test strip Ql (U) 1+ Abnormal [facility] Nitrite Ql (U) + Abnormal [facility] Protein Ql (U) Negative Normal [facility].; [facility] [place]. No Panel Informationon 02-23 [facility].; [facility], [facility]. [facility].; [facility], [facility]. [facility] UA - ODOR Positive Abnormal [facility] [facility].; [facility] [employer] [facility] [employer] UA - UROBILIGEN 0.2 Normal [facility].; [facility].; [facility], Inc[facility].; [facility], Inc. [facility].; [facility]. [facility].; [facility].; [facility] [employer] [facility]. No Panel Informationon 02-10 [facility] [employer] [facility].; [facility] [employer] [facility] [employer]. No Panel Informationon 07-22 [facility] [facility].; [facility]. [facility].; [facility] [employer].; [facility]. No Panel Informationon 07-17 [facility] [employer] [facility].; [facility].; [facility]. No Panel Informationon 07-16 [facility] [employer] [facility].; [facility]. [facility].; [facility] [employer] [facility].; [facility] [employer] [facility] [employer]. [facility] [employer] [facility] [employer].; [facility] [employer] [facility] [employer]. [facility] [employer] [facility].; [facility] [employer] [facility]. [facility].; [facility] [employer] [facility] [employer] MA MAMMOGRAM DIAGNOSTIC RIGH T W/TOMOon 02-11-2024 MA MAMMOGRAM DIAGNOSTIC RIGHT W/TANYA ORIGINAL FROM: [facility] [address] [place] [address] PROCEDURE FOR: [address] [address] [place] [address] Home: PID#: [id number] Exam#: [id number] : 1960 Age: 64 TO: JUWAN SERRA MD [address] [address] EXAMINATION: DIAGNOSTIC DIGITAL RIGHT BREAST MAMMOGRAM WITH TOMOSYNTHESIS, 02/11/2024 10:02 am TECHNIQUE: Diagnostic mammography of the right breast was performed with tomosynthesis. 2D standard and 3D tomosynthesis combination imaging performed through the right breast. Computer aided detection was utilized in the interpretation of this exam. Current study was also evaluated with a Computer Aided Detection (CAD) system. COMPARISON: 01/02/2024 HISTORY: ORDERING SYSTEM PROVIDED HISTORY: Reason for Exam: RT BREAST ASYMMETRY FINDINGS: BREAST DENSITY: Heterogeneously dense Right breast asymmetry only seen on the MLO view persists, it is circumscribed and oval-shaped with some minimal lobulation measuring approximately 6 mm. No other significant masses, calcifications, or other findings. IMPRESSION: Right breast asymmetry is confirmed, is in the upper outer quadrant, ultrasound is recommended to further evaluate. Ultrasound will be performed the same day and reported separately. BIRADS: MAMMOGRAM BI-RADS: 0: Needs addl evaluation RECALL: immediate RECALL TYPE: US LETTER SENT: Abnormal-Needs additional work up BI-RADS 0 Interpreted by: Denver Lawton MD Preliminary Report By: Denver Lawton MD Electronically signed By Denver Lawton MD Dictated Date: 02/11/2024 10:57:12 AM Prelim Date: 02/11/2024 11:02:26 AM Sign Date: 02/11/2024 11:02:26 AM Ordering Provider: JUWAN SERRA CLINICAL: MAMMOGRAPHIC DENSITY RIGHT BREAST. Kitchenhand: SENAIT BARNHART RT(R)(M) letter sent: Abnormal-Needs additional work up BI-RADS 0 Mammogram BI-RADS: 0 Indeterminate [facility] [place] BREAST RIGHT LIMITEDon US BREAST RIGHT LIMITED ORIGINAL FROM: [facility] [address] [place] [address] PROCEDURE FOR: [address] [place] [address] Home: PID#: [id number] Exam#: [id number] : 1960 Age: 64 TO: JUWAN SERRA MD [address] [place], [place] [address] EXAMINATION: ULTRASOUND OF THE RIGHT BREAST 02/11/2024 10:06 am TECHNIQUE: Color flow and real-time targeted ultrasound of the right breast were performed. COMPARISON: 02/11/2024 mammogram HISTORY: ORDERING SYSTEM PROVIDED HISTORY: Reason for Exam: RT BREAST ASYMMETRY FINDINGS: In the upper outer right breast there is a 5 x 5 x 4 mm cyst which corresponds to the mammographic abnormality. There is no associated vascularity. No other visible solid or cystic mass. IMPRESSION: Right breast cyst corresponding to the mammographic abnormality, this is benign and no follow-up imaging is needed. Recommend return to routine screening mammography. BIRADS: MAMMOGRAM BI-RADS: 2: Benign finding RECALL: 1 year screening RECALL TYPE: mammo LETTER SENT: Normal BI-RADS 1 and 2 Interpreted by: Denver Lawton MD Preliminary Report By: Denver Lawton MD Electronically signed By Denver Lawton MD Dictated Date: 02/11/2024 11:15:17 AM Prelim Date: 02/11/2024 11:18:34 AM Sign Date: 02/11/2024 11:18:34 AM Ordering Provider: JUWAN SERRA CLINICAL: MAMMOGRAPHIC DENSITY RIGHT BREAST LATERAL SUPERIOR. Kitchenhand: JENIFFER GIL RT(R)(M), [facility] letter sent: Normal BI-RADS 1 and 2 Ultrasound BI-RADS: 2 Benign Normal [facility] [place] MAMMOGRAM SCREENING BILAT ERAL W/TOMOon 01-03-2024 RI MAMMOGRAM SCREENING BILATERAL W/TANYA ORIGINAL FROM: [address] [address] PROCEDURE FOR: [address] [address] [place] [address] Home: PID#: [id number] Exam#: [id number] : 1960 Age: 63 TO: JUWAN SERRA MD [facility] [place], [place] [address] EXAMINATION: SCREENING DIGITAL BILATERAL MAMMOGRAM WITH TOMOSYNTHESIS, 01/02/2024 10:11 am TECHNIQUE: Screening mammography of the bilateral breasts was performed with tomosynthesis. 2D standard and 3D tomosynthesis combination imaging performed through both breasts in the MLO and CC projection. Computer aided detection was utilized in the interpretation of this exam. COMPARISON: 11/28/2022, 11/02/2021, 09/13/2020, 03/25/2019 HISTORY: Breast cancer screening. FINDINGS: BREAST DENSITY: Heterogeneously dense There is a 6 mm asymmetry in the right breast only seen on the MLO view which is irregular in shape with a circumscribed border. There are benign appearing calcifications in both breasts. There are no significant masses or calcifications. IMPRESSION: Right breast asymmetry, recommend a spot MLO tomosynthesis through the area spot MLO tomosynthesis in the CC urine laterally middle depth and a lateral view to further evaluate. If a lesion is confirmed ultrasound will be needed. Tyrtimoteo Cuzick risk calculations, generated with the history provided, report this patient's 10 year risk and lifetime risk for developing breast cancer at 15.2% and 29.5%, respectively. Based on this assessment tool, if the patient's calculated lifetime risk is below 20%, then the patient is considered at average risk for developing breast cancer. If the patient's calculated lifetime risk is at or above 20%, then the patient is considered high risk for developing breast cancer and may be a candidate for supplemental breast MRI screening in addition to annual mammographic screening per the [employer] [employer]. I have personally reviewed the images of this examination and agree with the resident's findings and interpretation. BIRADS: MAMMOGRAM BI-RADS: 0: Needs addl evaluation RECALL: immediate RECALL TYPE: mammo LETTER SENT: Abnormal-Needs additional work up BI-RADS 0 Interpreted by: Denver Lawton MD Preliminary Report By: Carlos Alberto Glass Electronically signed By Denver Lawton MD Dictated Date: 01/03/2024 9:15:07 AM Prelim Date: 01/03/2024 12:41:00 PM Sign Date: 01/03/2024 12:41:00 PM Ordering Provider: JUWAN SERRA Kitchenhand: APPLE TORRES letter sent: Abnormal-Needs additional work up BI-RADS 0 Mammogram BI-RADS: 0 Indeterminate Normal [facility] RFon 03-07-2023 Rheumatoid Factor <6.0 Normal <=6.0 [facility] Comment on above: Result Comment: RF I gM Antibody by Enzyme Immunoassay: Negative < or = 6 Positive > 6 A positive result indicates the presence of RF antibodies and suggests the possibility of rheumatoid arthritis. A negative result indicates no RF IgM antibody or levels below the negative cut-off of the assay. Results of this assay should be used in conjunction with clinical findings and other serological tests. These results were obtained with the Pagar[employer] Lite RF IgM ILIA. RF IgM values obtained with different manufacturers' assay methods may not be used interchangeably. The magnitude of the reported IgM levels cannot be correlated to an endpoint titer. Performed By: #### R F, JOSEFINA, VIDH, FE, ASO, ROYA, CRP, ESR #### [place] [id number] .ANATon 03-05-2023 ROYA Pattern 1 Homogeneous Normal [facility] ([place]) Comment on above: Result Comment: At [facility], an ROYA titer of less than 160 is not considered suggestive of significant rheumatoid disease. If clinical suspicion is high, suggest repeat testing in 1-2 months. Performed By: #### R F, JOSEFINA, VIDH, FE, ASO, ROYA, CRP, ESR #### [address] [address] ROYA Titer 1 40 Normal [facility] ([place]) Comment on above: Performed By: #### R F, JOSEFINA, VIDH, FE, ASO, ROYA, CRP, ESR #### [address] [address] ANAon 03-05-2023 ROYA See Titer Normal Neg 40 [facility] ([place]) Comment on above: Result Comment: ROYA Screen and Titer methodology is an immunofluorescent technique utilizing Hep2 Substrate. Performed By: #### R F, JOSEFINA, VIDH, FE, ASO, ROYA, CRP, ESR #### [place] [id number] ASOon 03-04-2023 ASO 379.6 IU/mL High 25.0-250.0 [facility] ([place]) Comment on above: Result Comment: No te - New Reference Range in effect 20 Performed By: #### R F, JOSEFINA, VIDH, FE, ASO, ROYA, CRP, ESR #### [address] [address] CRPon 03-04-2023 CRP [Mass/Vol] mg/L Normal 0.0 - 1.0 mg/dL [facility]; [facility] Comment on above: Result Comment: No te - New Reference Range in effect 20 Performed By: #### R F, JOSEFINA, VIDH, FE, ASO, ROYA, CRP, ESR #### [place] [address] ESRon 03-04-2023 Erythrocyte Sed Rate 24 mm/hr Normal 0-30 [facility] ([place]) Comment on above: Performed By: #### R F, JOSEFINA, VIDH, FE, ASO, ROYA, CRP, ESR #### [place] [address] FEon 03-04-2023 Iron [Mass/Vol] 76 ug/dL Normal 50 - 170 ug/dL [facility]; [facility]. Comment on above: Performed By: #### R F, JOSEFINA, VIDH, FE, ASO, ROYA, CRP, ESR #### [place] [address] Laboratory - Chemistry and C hemistry - challengeon 03-04-2023 25-hydroxyvitamin D3 [Mass/Vol] 31.7 ng/mL Normal [facility]; [facility], [facility]. Laboratory - Hematology and Cell countson 03-04-2023 ESR Photometric method (Bld) [Velocity] 24 mm/h Normal 0 - 30 mm/h [facility], [facility] Laboratory - Microbiology an d Antimicrobial susceptibilityon 03-04-2023 Streptolysin O Ab Qn 379.6 {Int_unit/mL} Abnormal 25.0 - 250.0 {Int_unit/mL} [facility] Laboratory - Serology - non- microon 03-04-2023 Nuclear Ab IF (S) [Titer] 40-40 Normal [facility].; [facility] Nuclear Ab IF Ql (S) See Titer-See Titer Normal [facility] Hospital[facility]ounder[facility]; [facility]. Work Phone: Nuclear Ab pattern IF (S) [Interp] Homogeneous-Homogeneo us Normal [facility] Hospital[facility]; [facility] Rheumatoid factor IgM IA Qn (S) <6.0 Normal [facility]; [facility]. VIDHon 03-04-2023 Vit. D 25-Hydroxy 31.7 ng/mL Normal [facility] Comment on above: Result Comment: Inte rpretive Values Based on Total 25(OH)D: Severe Deficiency <20 ng/mL Mild to Moderate Deficiency 20-30 ng/mL [facility] Levels 30-100 ng/mL Toxicity Possible >100 ng/mL Performed By: #### R F, JOSEFINA, VIDH, FE, ASO, ROYA, CRP, ESR #### [place] [address] Laboratory - Chemistry and C hemistry - challengeon 12-12-2022 Cholesterol [Mass/Vol] 265 mg/dL Abnormal 50 - 199 mg/dL [facility].; [facility]. Cholesterol in HDL [Mass/Vol] 45 mg/dL Normal 40 - 59 mg/dL [facility].; [facility] Cholesterol in LDL [Mass/Vol] 177 mg/dL Abnormal 0 - 129 mg/dL [facility].; [facility]. Triglyceride [Mass/Vol] 214 mg/dL Abnormal 3 - 149 mg/dL [facility], Inc[facility] TSH Qn 3.514 m[IU]/L Normal 0.550 - 4.780 m[iU]/mL [facility].; [facility], Inc[facility] CA 125on 12-14-2021 CA 125 21 U/mL Normal <39 [facility] Reference Lab Comment on above: Performed By: #### C A125 #### [facility] Routine Lab [address] [place], [place] [address] US KIDNEYon 06-12-2021 KIDNEY US KIDNEY Ordering Physician: Jan Forrest MD 06/12/2021 12:00 PM ULTRASOUND KIDNEYS Clinical Statement: Urinary tract infection Comparison: CT abdomen and pelvis July 05, 2016 FINDINGS: The right and left kidneys measure 10.0 x 4.3 x 5.5 cm and 10.0 x 5.1 x 5.1 cm respectively. The renal cortical echotexture and thickness appears appropriate for age. There is no hydronephrosis, perinephric fluid, or discrete renal cortical mass. A 3.1 cm peripelvic right renal cyst is present, with no concerning or suspicious features. No discrete renal mass. No secondary sonographic signs for focal pyelonephritis. IMPRESSION: No acute process. 3.1 cm right renal peripelvic cyst. ---- Electronic Signature on File ---- Signed By: Jessica Underwood MD [email or web address] Dictated: 06/12/2021 12:19 PM Signed: 06/12/2021 12:21 PM Reported By: JESSICA UNDERWOOD M.D. Signed By: JESSICA UNDERWOOD M.D. [facility] Laboratory - Chemistry and C hemistry - challengeon 06-02-2021 Albumin [Mass/Vol] 4.3 g/dL Normal 3.2 - 4.8 g/dL [facility], [facility].; [facility], [facility]. Albumin BCP dye [Mass/Vol] 4.3 g/dL Normal 3.2 - 4.8 g/dL [facility].; [facility]. Albumin/Globulin [Mass ratio] 1.7 {ratio} Abnormal 0.9 - 1.6 {ratio} [facility]; [facility] ALP [Catalytic activity/Vol] 113 U/L Normal 38 - 126 U/L [facility].; [facility]. ALT [Catalytic activity/Vol] 22 U/L Normal 10 - 49 U/L [facility].; [facility]. ALT No additional P-5'-P [Catalytic activity/Vol] 22 U/L Normal 10 - 49 U/L [facility]; [facility], [facility]. ALT With P-5'-P [Catalytic activity/Vol] 22 U/L Normal 10 - 49 U/L [facility].; [facility]. AST [Catalytic activity/Vol] 20 U/L Normal 8 - 34 U/L [facility].; [facility]. AST With P-5'-P [Catalytic activity/Vol] 20 U/L Normal 8 - 34 U/L [facility].; [facility], [facility]. Bilirubin [Mass/Vol] 0.60 mg/dL Normal 0.20 - 1.20 mg/dL [facility].; [facility], [facility] Calcium [Mass/Vol] 9.9 mg/dL Normal 8.7 - 10. 4 mg/dL [facility].; [facility], [facility]. Chloride [Moles/Vol] 106 mmol/L Normal 98 - 11 0 meq/L [facility]; [facility], [facility]. CO2 [Moles/Vol] 27 mmol/L Normal 22 - 32 meq/L [facility]; [facility], [facility] Creatinine [Mass/Vol] 0.94 mg/dL Normal 0.50 - 1.20 mg/dL [facility]; [facility], [facility]. Free T3 [Mass/Vol] 2.82 {mcg/mL} Normal 2.30 - 4 .20 {mcg/mL} [facility].; [facility], [facility] Free T4 [Mass/Vol] 1.14 ug/dL Normal 0.89 - 1. 76 ug/dL [facility].; [facility], [facility] GFR/1.73 sq M.predicted among blacks MDRD (S/P/Bld) [Vol rate/Area] mL/min/{1.73_m2} Normal [facility].; [facility] Work Phone: GFR/1.73 sq M.predicted among non-blacks MDRD (S/P/Bld) [Vol rate/Area] 60 {ml/min/1.73sqm} Normal [facility].; [facility] Work Phone: Globulin (S) [Mass/Vol] 2.5 g/dL Normal 1.5 - 3.8 g/dL [facility].; [facility]. Glucose [Mass/Vol] 95 mg/dL Normal 82 - 115 mg/dL [facility].; [facility], [facility] Iron [Mass/Vol] 79 ug/dL Normal 50 - 170 ug/dL [facility].; [facility], [facility]. Magnesium [Mass/Vol] 0.60 mg/dL Normal 0.20 - 1.20 mg/dL [facility].; [facility], [facility]. Potassium [Moles/Vol] 3.9 mmol/L Normal 3.5 - 5.0 meq/L [facility].; [facility], [facility] Protein [Mass/Vol] 6.8 g/dL Normal 5.7 - 8.2 g/dL [facility]; [facility], [facility] Sodium [Moles/Vol] 142 mmol/L Normal 136 - 145 meq/L [facility]; [facility] TSH Qn 2.492 m[IU]/L Normal 0.550 - 4.780 m[iU]/mL [facility]; [facility] Urea nitrogen [Mass/Vol] 15.0 mg/dL Normal 8.0 - 22.0 mg/dL [facility]; [facility] Urea nitrogen/Creatinine [Mass ratio] 16.0 {ratio} Normal 10.0 - 22.0 {ratio} [facility]; [facility] No Panel Informationon 06-02 BUN/Creatinine Ratio 16.0 {ratio} Normal 10.0 - 22.0 {ratio} [facility]; [facility], [facility] Electrolyte Balance 9.0 meq/L Normal 4.0 - 15 .0 meq/L [facility]; [facility] Laboratory - Chemistry and C hemistry - challengeon 03-09-2021 Bilirubin Ql (U) Negative Normal [facility]; [facility] Ketones Ql (U) Negative Normal [facility]; [facility], [facility]. pH (U) 6.0 [pH] Normal [facility]; [facility] Specific gravity (U) [Rel density] 1.015 Normal [facility].; [facility], [facility]. Laboratory - Hematology and Cell countson 03-09-2021 Hemoglobin Ql (U) + Abnormal [facility].; [facility] Laboratory - Microbiology an d Antimicrobial susceptibilityon 03-09-2021 Bacteria identified Cx Nom (U) See Note Normal [facility].; [facility], [facility]. Laboratory - Specimen inform ationon 03-09-2021 Appearance (U) CLOUDY Abnormal [facility]; [facility], [facility]. Color (U) YELLOW Normal [facility].; [facility], [facility]. Laboratory - Urinalysison Glucose Test strip (U) [Mass/Vol] Negative Normal [facility].; [facility], [facility]. Leukocyte esterase Test strip Ql (U) Negative Normal [facility].; [facility], [facility]. Nitrite Ql (U) Negative Normal [facility].; [facility], [facility]. Protein Ql (U) Negative Normal [facility].; [facility], [facility]. No Panel Informationon 03-09 UA - ODOR Negative Normal [facility].; [facility], [facility]. UA - UROBILIGEN 0.2 Normal [facility].; [facility], [facility]. Laboratory - Chemistry and C hemistry - challengeon 03-21-2020 Free T3 [Mass/Vol] 2.71 pg/mL Normal 2.30 - 4. 20 pg/mL [facility].; [facility], [facility]. Free T4 [Mass/Vol] 1.01 ng/dL Normal 0.60 - 1. 70 ng/dL [facility].; [facility], [facility]. TSH Qn 3.420 m[IU]/L Normal 0.360 - 3.740 {mcIU/mL} [facility].; [facility], [facility]. Laboratory - Chemistry and C hemistry - challengeon 02-10-2020 TSH Qn 2.510 m[IU]/L Normal 0.360 - 3.740 {mcIU/mL} [facility].; [facility], [facility]. Laboratory - Chemistry and C hemistry - challengeon 11-30-2019 TSH Qn m[IU]/L Abnormal 0.360 - 3.740 {mcIU/mL} [facility]; [facility]. Laboratory - Chemistry and C hemistry - challengeon 09-28-2019 TSH Qn 0.010 m[IU]/L Abnormal 0.360 - 3.740 {mcIU/mL} [facility]; [facility]. Laboratory - Chemistry and C hemistry - challengeon 07-22-2019 Cholesterol [Mass/Vol] 258 mg/dL Abnormal 0 - 200 mg/dL [facility]; [facility]. Work Phone: Cholesterol in HDL [Mass or moles/Vol] 44 mg/dL Normal 40 - 60 mg/dL [facility]; [facility] Work Phone: Cholesterol in LDL [Mass/Vol] 175 mg/dL Abnormal 0 - 129 mg/dL [facility]; [facility]. Work Phone: Cholesterol.total/Chol esterol in HDL [Mass ratio] 5.9 {ratio} Abnormal 0.0 - 5.0 [facility]; [facility] Work Phone: Lipid 1996 panel Normal [facility]; [facility] Work Phone: T3/Triiodothyronine (T3) uptake index [Ratio] 39 % Abnormal 22 - 32 % [facility]; [facility] Work Phone: T4 [Mass/Vol] 7.2 ug/dL Normal 6.0 - 12.2 ug/dL [facility]; [facility] Work Phone: T4/Triiodothyronine (T3) uptake index [Mass ratio] 2.8 Normal 1.0 - 4.0 [facility]; [facility]. Work Phone: Triglyceride [Mass/Vol] 193 mg/dL Abnormal 0 - 150 mg/dL [facility]; [facility]. Work Phone: TSH Qn 7.60 m[IU]/L Abnormal 0.34 - 5.60 {uIU/ml} [facility].; [facility]. Work Phone: Laboratory - Chemistry and C hemistry - challengeon 12-12-2018 Albumin [Mass/Vol] 4.5 g/dL Normal 3.2 - 4.8 g/dL [facility]; [facility]. Albumin BCP dye [Mass/Vol] 4.5 g/dL Normal 3.2 - 4.8 g/dL [facility]; [facility]. Albumin/Globulin [Mass ratio] 1.7 {ratio} Abnormal 0.9 - 1.6 {ratio} [facility].; [facility]. ALP [Catalytic activity/Vol] 103 U/L Normal 38 - 126 U/L [facility]; [facility]. ALT [Catalytic activity/Vol] 56 U/L Abnormal 10 - 49 U/L [facility]. ALT No additional P-5'-P [Catalytic activity/Vol] 56 U/L Abnormal 10 - 49 U/L [facility].; [facility], [facility]. ALT With P-5'-P [Catalytic activity/Vol] 56 U/L Abnormal 10 - 49 U/L [facility].; [facility], [facility]. AST [Catalytic activity/Vol] 26 U/L Normal 8 - 34 U/L [facility].; [facility], [facility]. AST With P-5'-P [Catalytic activity/Vol] 26 U/L Normal 8 - 34 U/L [facility]; [facility] Bilirubin [Mass/Vol] 0.3 mg/dL Normal 0.2 - 1 .2 mg/dL [facility]; [facility] Calcium [Mass/Vol] 9.5 mg/dL Normal 8.4 - 10. 1 mg/dL [facility]; [facility] Chloride [Moles/Vol] 106 mmol/L Normal 98 - 11 0 meq/L [facility]; [facility] Cholesterol [Mass/Vol] 286 mg/dL Abnormal 50 - 199 mg/dL [facility]; [facility] Cholesterol in HDL [Mass/Vol] 49 mg/dL Normal 40 - 59 mg/dL [facility]; [facility] Cholesterol in LDL [Mass/Vol] 173 mg/dL Abnormal 0 - 129 mg/dL [facility]; [facility]. CO2 [Moles/Vol] 28 mmol/L Normal 22 - 32 meq/L [facility]; [facility] Creatinine [Mass/Vol] 0.95 mg/dL Normal 0.50 - 1.20 mg/dL [facility]; [facility] GFR/1.73 sq M.predicted among blacks MDRD (S/P/Bld) [Vol rate/Area] mL/min/{1.73_m2} Normal [facility]; [facility] Work Phone: GFR/1.73 sq M.predicted among non-blacks MDRD (S/P/Bld) [Vol rate/Area] 60 {ml/min/1.73sqm} Normal [facility]; [facility] Work Phone: Globulin (S) [Mass/Vol] 2.7 g/dL Normal 1.5 - 3.8 g/dL [facility]; [facility] Glucose [Mass/Vol] 99 mg/dL Normal 82 - 115 mg/dL [facility]; [facility] Iron [Mass/Vol] 85 ug/dL Normal 37 - 170 ug/dL [facility]; [facility] Magnesium [Mass/Vol] 2.4 mg/dL Normal 1.6 - 2 .4 mg/dL [facility]; [facility] Magnesium [Mass/Vol] 0.3 mg/dL Normal 0.2 - 1 .2 mg/dL [facility]; [facility] Potassium [Moles/Vol] 4.4 mmol/L Normal 3.5 - 5.0 meq/L [facility]; [facility] Protein [Mass/Vol] 7.2 g/dL Normal 6.0 - 8.5 g/dL [facility]; [facility] Sodium [Moles/Vol] 143 mmol/L Normal 136 - 145 meq/L [facility]; [facility] Triglyceride [Mass/Vol] 319 mg/dL Abnormal 3 - 149 mg/dL [facility]; [facility] TSH Qn 2.160 m[IU]/L Normal 0.360 - 3.740 {mcIU/mL} [facility]; [facility] Urea nitrogen [Mass/Vol] 15.0 mg/dL Normal 8.0 - 22.0 mg/dL [facility]; [facility] Urea nitrogen/Creatinine [Mass ratio] 15.8 {ratio} Normal 10.0 - 22.0 {ratio} [facility] Laboratory - Hematology and Cell countson 12-12-2018 Basophils (Bld) [#/Vol] 0.10 {10^3/mcL} Normal 0.00 - 0.27 {10^3/mcL} [facility] Work Phone: Basophils/100 WBC (Bld) 1.0 % Normal 0.0 - 2.5 % [facility] Work Phone: Eosinophils (Bld) [#/Vol] 0.10 {10^3/mcL} Normal 0.00 - 0.65 {10^3/mcL} [facility] Work Phone: Eosinophils/100 WBC (Bld) 1.8 % Normal 0.0 - 6.0 % [facility]; [facility] Work Phone: Erythrocyte distribution width (RBC) [Ratio] 15.3 % Normal 11.5 - 15.5 % [facility].; [facility] Hematocrit (Bld) [Volume fraction] 45.0 % Normal 34.0 - 46.0 % [facility].; [facility] Hemoglobin (Bld) [Mass/Vol] 14.3 g/dL Normal 12.0 - 16.0 g/dL [facility].; [facility] Lymphocytes (Bld) [#/Vol] 2.00 {10^3/mcL} Normal 0.90 - 4.32 {10^3/mcL} [facility].; [facility]. Work Phone: Lymphocytes/100 WBC (Bld) 31.8 % Normal 20.0 - 40.0 % [facility].; [facility] Work Phone: MCH (RBC) [Entitic mass] 25.4 pg Abnormal 27.0 - 33.0 pg [facility]; [facility]. MCHC (RBC) [Mass/Vol] 31.7 g/dL Abnormal 32.0 - 36.0 g/dL [facility].; [facility]. MCV (RBC) [Entitic vol] 80.3 fL Normal 80.0 - 99.0 fL [facility]; [facility] Monocytes (Bld) [#/Vol] 0.40 {10^3/mcL} Normal 0.09 - 1.40 {10^3/mcL} [facility].; [facility]. Work Phone: Monocytes/100 WBC (Bld) 7.1 % Normal 2.0 - 13.0 % [facility].; [facility]. Work Phone: Neutrophils (Bld) [#/Vol] 3.60 {10^3/mcL} Normal 2.25 - 8.10 {10^3/mcL} [facility].; [facility]. Work Phone: Neutrophils/100 WBC (Bld) 58.3 % Normal 50.0 - 75.0 % [facility].; [facility]. Work Phone: Platelet mean volume (Bld) [Entitic vol] 8.4 fL Normal 6.6 - 10.5 fL [facility]; [facility] Platelets (Bld) [#/Vol] 216 {10^3/mcL} Normal 150 - 450 {10^3/mcL} [facility] [employer] [facility], [place]. RBC (Bld) [#/Vol] 5.60 {10^6/mcL} Abnormal 4.10 - 5.30 {10^6/mcL} [facility].; [facility] WBC (Bld) [#/Vol] 6.20 {10^3/mcL} Normal 4.50 - 10.80 {10^3/mcL} [facility] [facility], [place]. No Panel Informationon 12-12 BUN/Creatinine Ratio 15.8 {ratio} Normal 10.0 - 22.0 {ratio} [facility]World[facility]Scient[facility].; [facility], [place]. Electrolyte Balance 9.0 meq/L Normal 4.0 - 15 .0 meq/L [facility]World[facility]areScient[facility].; [facility] [employer] [facility] [employer] [facility], [place]. Eosinophil, Absolute 0.10 {10^3/mcL} Normal 0.00 - 0.65 {10^3/mcL} [facility] [employer] [facility] [employer], [place]. Work Phone: Laboratory - Chemistry and C hemistry - challengeon 01-03-2018 Cholesterol [Mass/Vol] 287 mg/dL Abnormal 50 - 199 mg/dL [facility] HospitalGO[facility].; [employer] [facility] Cholesterol in HDL [Mass/Vol] 46 mg/dL Normal 40 - 59 mg/dL [facility] HospitalWorldSto[facility]areScient[facility] Intake.; [facility] [employer] [facility], [place]. Cholesterol in LDL [Mass/Vol] 198 mg/dL Abnormal 0 - 129 mg/dL [facility] [employer] [facility]Scient[facility].; [employer] [place] [employer] [facility] [employer] Free T4 [Mass/Vol] 0.95 ng/dL Normal 0.60 - 1. 70 ng/dL [facility] HospitalWorldSto[facility] Christian[facility]areScient[facility]ake.; [facility]ITALGlobal [facility] [employer] [place] [employer] [facility] [employer] Triglyceride [Mass/Vol] 213 mg/dL Abnormal 3 - 149 mg/dL [facility].; [facility], [facility]. TSH Qn 4.050 m[IU]/L Abnormal 0.360 - 3.740 {mcIU/mL} [facility].; [facility] Laboratory - Chemistry and C hemistry - challengeon 07-09-2017 Albumin [Mass/Vol] 4.2 g/dL Normal 3.2 - 4.8 g/dL [facility]; [facility]. Albumin BCP dye [Mass/Vol] 4.2 g/dL Normal 3.2 - 4.8 g/dL [facility]; [facility], [facility]. Albumin/Globulin [Mass ratio] 1.4 {ratio} Normal 0.9 - 1.6 {ratio} [facility]; [facility]. ALP [Catalytic activity/Vol] 105 U/L Normal 38 - 126 U/L [facility]; [facility]. ALT [Catalytic activity/Vol] 45 U/L Normal 10 - 49 U/L [facility]; [facility], [facility]. ALT No additional P-5'-P [Catalytic activity/Vol] 45 U/L Normal 10 - 49 U/L [facility].; [facility], [facility]. ALT With P-5'-P [Catalytic activity/Vol] 45 U/L Normal 10 - 49 U/L [facility].; [facility], [facility]. AST [Catalytic activity/Vol] 26 U/L Normal 8 - 34 U/L [facility].; [facility], [facility]. AST With P-5'-P [Catalytic activity/Vol] 26 U/L Normal 8 - 34 U/L [facility].; [facility], [facility]. Bilirubin [Mass/Vol] 0.4 mg/dL Normal 0.2 - 1 .2 mg/dL [facility]; [facility] Calcium [Mass/Vol] 8.8 mg/dL Normal 8.4 - 10. 1 mg/dL [facility]; [facility] Chloride [Moles/Vol] 107 mmol/L Normal 98 - 11 0 meq/L [facility]; [facility] Cholesterol [Mass/Vol] 207 mg/dL Abnormal 50 - 199 mg/dL [facility]; [facility]. Cholesterol in HDL [Mass/Vol] 42 mg/dL Normal 40 - 59 mg/dL [facility]; [facility] Cholesterol in LDL [Mass/Vol] 117 mg/dL Normal 0 - 129 mg/dL [facility]; [facility] CO2 [Moles/Vol] 28 mmol/L Normal 22 - 32 meq/L [facility]; [facility] Creatinine [Mass/Vol] 0.96 mg/dL Normal 0.50 - 1.20 mg/dL [facility]; [facility]. GFR/1.73 sq M.predicted among blacks MDRD (S/P/Bld) [Vol rate/Area] mL/min/{1.73_m2} Normal [facility].; [facility]. Work Phone: GFR/1.73 sq M.predicted among non-blacks MDRD (S/P/Bld) [Vol rate/Area] 59 {ml/min/1.73sqm} Normal [facility].; [facility]. Work Phone: Globulin (S) [Mass/Vol] 3.1 g/dL Normal 1.5 - 3.8 g/dL [facility]; [facility] Glucose [Mass/Vol] 85 mg/dL Normal 70 - 110 mg/dL [facility]; [facility] Magnesium [Mass/Vol] 0.4 mg/dL Normal 0.2 - 1 .2 mg/dL [facility]; [facility] Potassium [Moles/Vol] 4.3 mmol/L Normal 3.5 - 5.0 meq/L [facility]; [facility], [facility] Protein [Mass/Vol] 7.3 g/dL Normal 6.0 - 8.5 g/dL [facility]; [facility], [facility] Sodium [Moles/Vol] 143 mmol/L Normal 136 - 145 meq/L [facility].; [facility], [facility] Triglyceride [Mass/Vol] 240 mg/dL Abnormal 3 - 149 mg/dL [facility].; [facility], [facility] Urea nitrogen [Mass/Vol] 14.0 mg/dL Normal 8.0 - 22.0 mg/dL [facility]; [facility], [facility] Urea nitrogen/Creatinine [Mass ratio] 14.6 {ratio} Normal 10.0 - 22.0 {ratio} [facility].; [facility], [facility] No Panel Informationon 07-09 BUN/Creatinine Ratio 14.6 {ratio} Normal 10.0 - 22.0 {ratio} [facility].; [facility], [facility] Electrolyte Balance 8.0 meq/L Normal 4.0 - 15 .0 meq/L [facility]; [facility], [facility] Laboratory - Blood bankon Albumin given [Vol] 4.2 g/dL Normal 3.2 - 4. 8 g/dL [facility]; [facility] Laboratory - Chemistry and C hemistry - challengeon 12-21-2016 Albumin/Globulin [Mass ratio] 1.5 {ratio} Normal 0.9 - 1.6 [facility]; [facility] ALP [Catalytic activity/Vol] 105 U/L Normal 38 - 126 U/L [facility]; [facility] ALT [Catalytic activity/Vol] 74 U/L Abnormal 10 - 49 U/L [facility]; [facility]. AST [Catalytic activity/Vol] 23 U/L Normal 8 - 34 U/L [facility]; [facility] Base excess Calc (BldMV) [Moles/Vol] 10.0 meq/L Normal 4.0 - 15.0 meq/L [facility]; [facility]. Bilirubin direct and total panel [Mass/Vol] 0.4 mg/dL Normal 0.2 - 1.2 mg/dL [facility]; [facility], [facility] Calcium [Mass/Vol] 9.4 mg/dL Normal 8.4 - 10. 1 mg/dL [facility]; [facility] Chloride [Moles/Vol] 103 mmol/L Normal 98 - 11 0 meq/L [facility].; [facility] Cholesterol [Mass/Vol] 292 mg/dL Abnormal 50 - 199 mg/dL [facility]; [facility]. Cholesterol in HDL [Mass/Vol] 51 mg/dL Normal 40 - 59 mg/dL [facility]; [facility], [facility] Cholesterol in LDL [Mass/Vol] 201 mg/dL Abnormal 0 - 129 mg/dL [facility]; [facility], [facility] CO2 [Moles/Vol] 29 mmol/L Normal 22 - 32 meq/L [facility]; [facility] Creatinine [Mass/Vol] 1.02 mg/dL Normal 0.50 - 1.20 mg/dL [facility].; [facility] Free T4 index Calc [Mass/Vol] 9.31 Normal 3.60 - 14.00 [facility].; [facility] Work Phone: GFR/1.73 sq M.predicted among blacks MDRD (S/P/Bld) [Vol rate/Area] mL/min/{1.73_m2} Normal [facility].; [facility]. Work Phone: GFR/1.73 sq M.predicted among non-blacks MDRD (S/P/Bld) [Vol rate/Area] 55 {mL/min/1.73m_2} Normal [facility].; [facility]. Work Phone: Globulin (S) [Mass/Vol] 2.8 g/dL Normal 1.5 - 3.8 g/dL [facility].; [facility] Glucose [Mass/Vol] 90 mg/dL Normal 70 - 110 mg/dL [facility].; [facility], [facility] Iron [Mass/Vol] 60 ug/dL Normal 37 - 170 ug/dL [facility].; [facility], [facility] Iron binding capacity [Mass/Vol] 282 ug/dL Normal 250 - 500 ug/dL [facility].; [facility], [facility] Iron saturation [Mass fraction] 21 % Normal [facility]; [facility] Potassium [Moles/Vol] 3.9 mmol/L Normal 3.5 - 5.0 meq/L [facility]; [facility] Protein [Mass/Vol] 7.0 g/dL Normal 6.0 - 8.5 g/dL [facility]; [facility] Sodium [Moles/Vol] 142 mmol/L Normal 136 - 145 meq/L [facility]; [facility] T4 [Mass/Vol] 8.7 ug/dL Normal 4.8 - 13.9 ug/dL [facility]; [facility] T4/Triiodothyronine (T3) uptake index [Mass ratio] 1.07 {ratio} Normal 0.76 - 1.23 {ratio} [facility]; [facility] Triglyceride [Mass/Vol] 202 mg/dL Abnormal 3 - 149 mg/dL [facility]; [facility] TSH Qn 3.89 m[IU]/L Abnormal 0.36 - 3.74 {mcIU/mL} [facility]; [facility] Urea nitrogen [Mass/Vol] 14.0 mg/dL Normal 8.0 - 22.0 mg/dL [facility]; [facility] Urea nitrogen/Creatinine [Mass ratio] 13.7 mg/mg Normal 10.0 - 22.0 [facility]; [facility] Laboratory - Hematology and Cell countson 12-21-2016 Basophils/100 WBC (Bld) 0.8 % Normal 0.0 - 2.5 % [facility]; [facility] Eosinophils/100 WBC (Bld) 1.9 % Normal 0.0 - 6.0 % [facility]; [facility] Erythrocyte distribution width (RBC) [Ratio] 15.4 % Normal 11.5 - 15.5 % [facility]; [facility] Hematocrit (Bld) [Volume fraction] 41.5 % Normal 34.0 - 46.0 % [facility]; [facility] Hemoglobin (Bld) [Mass/Vol] 13.2 g/dL Normal 12.0 - 16.0 g/dL [facility]; [facility] Lymphocytes/100 WBC (Bld) 32.3 % Normal 20.0 - 40.0 % [facility]; [facility] MCH (RBC) [Entitic mass] 25.4 pg Abnormal 27.0 - 33.0 pg [facility]; [facility] MCHC (RBC) [Mass/Vol] 31.8 g/dL Abnormal 32.0 - 36.0 g/dL [facility]; [facility], [facility] MCV (RBC) [Entitic vol] 79.9 fL Abnormal 80.0 - 99.0 fL [facility]; [facility] Monocytes/100 WBC (Bld) 7.7 % Normal 2.0 - 13.0 % [facility]; [facility], [facility] Neutrophils (Bld) [#/Vol] 3.50 {10_3/mcL} Normal 1.90 - 7.90 {10_3/mcL} [facility].; [facility], [facility] Neutrophils/100 WBC (Bld) 57.3 % Normal 50.0 - 75.0 % [facility].; [facility], [facility] Platelet mean volume (Bld) [Entitic vol] 8.2 fL Normal 6.6 - 10.5 fL [facility]; [facility] Platelets (Bld) [#/Vol] 199 {10_3/mcL} Normal 150 - 450 {10_3/mcL} [facility] [employer] [facility], [place].; [facility], [employer] RBC (Bld) [#/Vol] 5.19 {10_6/mcL} Normal 4.10 - 5.30 {10_6/mcL} [facility], [employer] WBC (Bld) [#/Vol] 6.20 {10_3/mcL} Normal 4.50 - 10.80 {10_3/mcL} [facility] [facility] [facility], [employer] Laboratory - Chemistry and C hemistry - challengeon 03-16-2016 Bilirubin Ql (U) Negative Normal [facility], [place].; [facility] Ketones Ql (U) Negative Normal [facility], [place].; [facility], [employer] pH (U) 5.0 [pH] Normal [facility] [facility].; [facility] Specific gravity (U) [Rel density] 1.005 Normal [facility].; [facility], [employer] Laboratory - Hematology and Cell countson 03-16-2016 Hemoglobin Ql (U) NON HEMOLYZED TRACE Abnormal [facility] [facility].; [facility], [employer] Laboratory - Specimen inform ationon 03-16-2016 Appearance (U) CLEAR Normal [facility].; [facility] Color (U) YELLOW Normal [facility].; [facility] Laboratory - Urinalysison Glucose Test strip (U) [Mass/Vol] Negative Normal [facility], [place].; [employer] [facility] Leukocyte esterase Test strip Ql (U) TRACE Abnormal [facility] [facility].; [facility] Nitrite Ql (U) Negative Normal [facility] [employer] [facility]; [facility], [facility] Protein Ql (U) Negative Normal [facility]; [facility], [facility] No Panel Informationon 03-16 UA - ODOR Negative Normal [facility]; [facility], [facility] UA - UROBILIGEN 0.2 Normal [facility]; [facility], [facility] Laboratory - Chemistry and C hemistry - challengeon 10-14-2015 Cobalamin (Vitamin B12) [Mass/Vol] 1,171 pg/mL Abnormal 211 - 911 pg/mL [facility]; [facility], [facility]. Laboratory - Blood bankon Albumin given [Vol] 4.4 g/dL Normal 3.2 - 4. 8 g/dL [facility]; [facility] Laboratory - Chemistry and C hemistry - challengeon 11-03-2013 Albumin/Globulin [Mass ratio] 1.7 {ratio} Abnormal 0.9 - 1.6 [facility]; [facility]. ALP [Catalytic activity/Vol] 85 U/L Normal 38 - 126 U/L [facility]; [facility], [facility]. ALT [Catalytic activity/Vol] 33 U/L Normal 10 - 49 U/L [facility]; [facility], [facility]. AST [Catalytic activity/Vol] 19 U/L Normal 8 - 34 U/L [facility]; [facility], [facility]. Base excess Calc (BldMV) [Moles/Vol] 4.0 meq/L Normal 4.0 - 15.0 meq/L [facility]; [facility], [facility]. Bilirubin direct and total panel [Mass/Vol] 0.4 mg/dL Normal 0.2 - 1.2 mg/dL [facility]; [facility], [facility] Calcium [Mass/Vol] 9.1 mg/dL Normal 8.4 - 10. 1 mg/dL [facility]; [facility] Chloride [Moles/Vol] 104 mmol/L Normal 98 - 11 0 meq/L [facility]; [facility] Cholesterol [Mass/Vol] 228 mg/dL Abnormal 50 - 199 mg/dL [facility].; [facility] Cholesterol in HDL [Mass/Vol] 55 mg/dL Normal 40 - 59 mg/dL [facility].; [facility] Cholesterol in LDL [Mass/Vol] 146 mg/dL Abnormal 0 - 129 mg/dL [facility]; [facility] CO2 [Moles/Vol] 33 mmol/L Abnormal 22 - 32 meq/L [facility]; [facility] Creatinine [Mass/Vol] 0.95 mg/dL Normal 0.50 - 1.20 mg/dL [facility].; [facility] Free T4 index Calc [Mass/Vol] 8.13 Normal 3.60 - 14.00 [facility].; [facility] Work Phone: GFR/1.73 sq M.predicted among blacks MDRD (S/P/Bld) [Vol rate/Area] mL/min/{1.73_m2} Normal [facility].; [facility]. Work Phone: GFR/1.73 sq M.predicted among non-blacks MDRD (S/P/Bld) [Vol rate/Area] mL/min/{1.73_m2} Normal [facility].; [facility]. Work Phone: Globulin (S) [Mass/Vol] 2.6 g/dL Normal 1.5 - 3.8 g/dL [facility].; [facility] Glucose [Mass/Vol] 100 mg/dL Normal 70 - 110 mg/dL [facility]; [facility] Iron [Mass/Vol] 60 ug/dL Normal 37 - 170 ug/dL [facility]; [facility] Iron binding capacity [Mass/Vol] 268 ug/dL Normal 250 - 500 ug/dL [facility]; [facility] Iron saturation [Mass fraction] 22 % Normal [facility]; [facility] Potassium [Moles/Vol] 3.7 mmol/L Normal 3.5 - 5.0 meq/L [facility]; [facility] Protein [Mass/Vol] 7.0 g/dL Normal 6.0 - 8.5 g/dL [facility]; [facility] Sodium [Moles/Vol] 141 mmol/L Normal 136 - 145 meq/L [facility]; [facility] T4 [Mass/Vol] 8.3 ug/dL Normal 4.8 - 13.9 ug/dL [facility]; [facility] T4/Triiodothyronine (T3) uptake index [Mass ratio] 0.98 {ratio} Normal 0.76 - 1.23 {ratio} [facility]; [facility] Triglyceride [Mass/Vol] 137 mg/dL Normal 3 - 149 mg/dL [facility]; [facility] TSH Qn 1.76 m[IU]/L Normal 0.36 - 3.74 {mcIU/mL} [facility]; [facility] Urea nitrogen [Mass/Vol] 12.0 mg/dL Normal 8.0 - 22.0 mg/dL [facility]; [facility] Urea nitrogen/Creatinine [Mass ratio] 12.6 mg/mg Normal 10.0 - 22.0 [facility]; [facility] Laboratory - Hematology and Cell countson 11-03-2013 Basophils/100 WBC (Bld) 0.3 % Normal 0.0 - 2.5 % [facility].; [facility] Eosinophils/100 WBC (Bld) 0.8 % Normal 0.0 - 6.0 % [facility].; [facility], [facility] Erythrocyte distribution width (RBC) [Ratio] 14.2 % Normal 11.5 - 15.5 % [facility].; [facility], [facility] Hematocrit (Bld) [Volume fraction] 41.0 % Normal 34.0 - 46.0 % [facility]; [facility], [facility] Hemoglobin (Bld) [Mass/Vol] 13.4 g/dL Normal 12.0 - 16.0 g/dL [facility].; [facility], [facility] Lymphocytes/100 WBC (Bld) 30.1 % Normal 20.0 - 40.0 % [facility].; [facility], [facility] MCH (RBC) [Entitic mass] 26.4 pg Abnormal 27.0 - 33.0 pg [facility].; [facility], [facility] MCHC (RBC) [Mass/Vol] 32.8 g/dL Normal 32.0 - 36.0 g/dL [facility].; [facility], [facility] MCV (RBC) [Entitic vol] 80.5 fL Normal 80.0 - 99.0 fL [facility].; [facility], [facility] Monocytes/100 WBC (Bld) 6.3 % Normal 2.0 - 13.0 % [facility].; [facility], [facility] Neutrophils (Bld) [#/Vol] 4.29 {10_3/mcL} Normal 1.90 - 7.90 {10_3/mcL} [facility].; [facility], [facility] Neutrophils/100 WBC (Bld) 62.5 % Normal 50.0 - 75.0 % [facility], [facility].; [facility], [facility] Platelet mean volume (Bld) [Entitic vol] 8.4 fL Normal 6.6 - 10.5 fL [facility], [facility].; [facility], [facility]. Platelets (Bld) [#/Vol] 186 {10_3/mcL} Normal 150 - 450 {10_3/mcL} [facility], [facility]. RBC (Bld) [#/Vol] 5.09 {10_6/mcL} Normal 4.10 - 5.30 {10_6/mcL} [facility], [facility].; [facility], [facility]. WBC (Bld) [#/Vol] 6.86 {10_3/mcL} Normal 4.50 - 10.80 {10_3/mcL} [facility], [facility]. No Panel Informationon 07-19 OCCULT BLOOD, FECES, SINGLE (IN OFFICE) Negative Normal [facility].; [facility], [facility] Vital Signs Date Time Vital Sign Value Performing Clinician Facility 10-05-2025 09:24-0500 Body height 166.37 cm [employer] Work Phone: [facility].; [facility], [facility]. 10-05-2025 09:24-0500 Body mass index (BMI) [Ratio] 33.43 kg/m2 [employer] Work Phone: [facility].; [facility], [facility]. 10-05-2025 09:24-0500 Body surface area Derived from formula 2.01 m2 [employer] Work Phone: [facility].; [facility], [facility] 10-05-2025 09:24-0500 Body weight 92.53 kg [employer] Work Phone: [facility] [employer] [facility] 10-05-2025 09:24-0500 Diastolic blood pressure 76 mm[Hg] MICHELLE LOUIE FILL TECHNICIAN-C Work Phone: [facility]; [employer] [facility]. Comment on above: Patient Position: Sitting; Cuff Location : Left Arm; Cuff Size: Standard 10-05-2025 09:24-0500 Heart rate 77 /min MICHELLE LOUEI FILL TECHNICIAN-C Work Phone: [facility]; [employer] [facility]. Comment on above: Pattern: Regular 10-05-2025 09:24-0500 Systolic blood pressure 116 mm[Hg] MICHELLE LOUIE FILL TECHNICIAN-C Work Phone: [facility]; [facility]. Comment on above: Patient Position: Sitting; Cuff Location : Left Arm; Cuff Size: Standard 09-21-2025 10:51-0400 Body height 172.72 cm No Primary Care Physician [facility] 09-21-2025 10:51-0400 Body mass index (BMI) [Ratio] 29.9 kg/m2 No Primary Care Physician [facility] 09-21-2025 10:51-0400 Body weight 89.35 kg No Primary Care Physician [facility] 09-21-2025 10:51-0400 Diastolic blood pressure 75 mm[Hg] No Primary Care Physician [facility] 09-21-2025 10:51-0400 Heart rate 73 /min No Primary Care Physician [facility] 09-21-2025 10:51-0400 Systolic blood pressure 124 mm[Hg] No Primary Care Physician [facility] 08-24-2025 10:00-0400 Body height 172.72 cm No Primary Care Physician [facility] 08-24-2025 10:00-0400 Body mass index (BMI) [Ratio] 29.9 kg/m2 No Primary Care Physician [facility] 08-24-2025 10:00-0400 Body weight 89.35 kg No Primary Care Physician [facility] 08-24-2025 10:00-0400 Diastolic blood pressure 77 mm[Hg] No Primary Care Physician [facility] 08-24-2025 10:00-0400 Heart rate 75 /min No Primary Care Physician [facility] 08-24-2025 10:00-0400 Systolic blood pressure 124 mm[Hg] No Primary Care Physician [facility] 04-19-2025 14:190400 Body height 166.37 cm [facility], [facility].; [facility] 04-19-2025 14:19-0400 Body mass index (BMI) [Ratio] 33.43 kg/m2 [facility], [facility].; [facility] 04-19-2025 14:190400 Body surface area Derived from formula 2.01 m2 [facility], [facility].; [facility] 04-19-2025 14:190400 Body temperature 97.7 [degF] [facility], [facility].; [facility] Comment on above: Method: Oral 04-19-2025 14:190400 Body weight 92.53 kg [facility], [facility].; [facility] 04-19-2025 14:190400 Diastolic blood pressure 81 mm[Hg] [facility] Comment on above: Patient Position: Sitting; Cuff Location : Left Arm; Cuff Size: Large 04-19-2025 14:19-0400 Heart rate 80 /min [facility], [facility].; [employer] [facility] Comment on above: Pattern: Regular 04-19-2025 14:19-0400 Systolic blood pressure 121 mm[Hg] [facility] Comment on above: Patient Position: Sitting; Cuff Location : Left Arm; Cuff Size: Large 02-23-2025 08:54-0400 Body height 167.64 cm CHRISTIAN MAXWELL RN [facility], [place].; [facility] 02-23-2025 08:54-0400 Body mass index (BMI) [Ratio] 32.76 kg/m2 CHRISTIAN MAXWELL RN [facility] 02-23-2025 08:54-0400 Body surface area Derived from formula 2.01 m2 CHRISTIAN MAXWELL RN [facility] [place].; [facility]. 02-23-2025 08:54-0400 Body weight 92.08 kg CHRISTIAN MAXWELL RN [facility]. 02-23-2025 08:54-0400 Diastolic blood pressure 76 mm[Hg] CHRISTIAN MAXWELL RN [facility], [place].; [facility]. Comment on above: Patient Position: Sitting; Cuff Location : Left Arm; Cuff Size: Standard 02-23-2025 08:54-0400 Heart rate 78 /min CHRISTIAN MAXWELL RN [facility] [place] [facility] [facility], [place]. Comment on above: Pattern: Regular 02-23-2025 08:54-0400 Systolic blood pressure 120 mm[Hg] CHRISTIAN MAXWELL RN [facility], [facility], [place]. Comment on above: Patient Position: Sitting; Cuff Location : Left Arm; Cuff Size: Standard 07-16-2024 09:05-0400 Body height 167.64 cm CHRISTIAN MAXWELL RN [facility] 07-16-2024 09:05-0400 Body mass index (BMI) [Ratio] 31.96 kg/m2 CHRISTIAN MAXWELL RN [facility].; [facility]. 07-16-2024 09:05-0400 Body surface area Derived from formula 1.99 m2 CHRISTIAN MAXWELL RN [facility].; [facility], [place]. 07-16-2024 09:05-0400 Body temperature 98.4 [degF] CHRISTIAN MAXWELL RN [facility].; [facility]. Comment on above: Method: Oral 07-16-2024 09:05-0400 Body weight 89.81 kg CHRISTIAN MAXWELL RN [facility].; [facility]. 07-16-2024 09:05-0400 Diastolic blood pressure 79 mm[Hg] CHRISTIAN MAXWELL RN [facility].; [facility]. Comment on above: Patient Position: Sitting; Cuff Location : Left Arm; Cuff Size: Standard 07-16-2024 09:05-0400 Heart rate 67 /min CHRISTIAN MAXWELL RN [facility].; [facility]. Comment on above: Pattern: Regular 07-16-2024 09:05-0400 Inhaled oxygen concentration 21 % CHRISTIAN MAXWELL RN [facility].; [facility]. Comment on above: Room air 07-16-2024 09:05-0400 SaO2% (BldA) [Mass fraction] 94 % CHRISTIAN MAXWELL RN [facility].; [facility]. 07-16-2024 09:05-0400 Systolic blood pressure 127 mm[Hg] CHRISTIAN MAXWELL RN [facility].; [facility]. Comment on above: Patient Position: Sitting; Cuff Location : Left Arm; Cuff Size: Standard 08-06-2023 13:35-0400 Body height 167.64 cm CHRISTIAN MAXWELL RN [facility], [place].; [facility]. 08-06-2023 13:35-0400 Body mass index (BMI) [Ratio] 31.63 kg/m2 CHRISTIAN MAXWELL RN [facility].; [facility]. 08-06-2023 13:35-0400 Body surface area Derived from formula 1.98 m2 CHRISTIAN MAXWELL RN [facility].; [facility]. 08-06-2023 13:35-0400 Body temperature 98.6 [degF] CHRISTIAN MAXWELL RN [facility].; [facility]. Comment on above: Method: Oral 08-06-2023 13:35-0400 Body weight 88.91 kg CHRISTIAN MAXWELL RN [facility].; [facility]. 08-06-2023 13:35-0400 Diastolic blood pressure 75 mm[Hg] CHRISTIAN MAXWELL RN [facility].; [facility]. Comment on above: Patient Position: Sitting; Cuff Location : Left Arm; Cuff Size: Standard 08-06-2023 13:35-0400 Heart rate 83 /min CHRISTIAN MAXWELL RN [facility].; [facility] [facility]. Comment on above: Pattern: Regular 08-06-2023 13:35-0400 Inhaled oxygen concentration 21 % CHRISTIAN MAXWELL RN [facility].; [facility]. Comment on above: Room air 08-06-2023 13:35-0400 SaO2% (BldA) [Mass fraction] 94 % CHRISTIAN MAXWELL RN [facility].; [facility]. 08-06-2023 13:35-0400 Systolic blood pressure 125 mm[Hg] CHRISTIAN MAXWELL RN [facility] [facility].; [facility]. Comment on above: Patient Position: Sitting; Cuff Location : Left Arm; Cuff Size: Standard 03-04-2023 09:54-0400 Body height 167.64 cm ERAN PRASAD RN [facility], [facility].; [facility] 03-04-2023 09:54-0400 Body mass index (BMI) [Ratio] 32.6 kg/m2 ERAN PRASAD RN [facility] 03-04-2023 09:54-0400 Body surface area Derived from formula 2.01 m2 ERAN PRASAD RN [facility], [facility].; [facility] 03-04-2023 09:54-0400 Body temperature 97.9 [degF] ERAN PRASAD RN [facility], [facility].; [facility], [place]. Comment on above: Method: Oral 03-04-2023 09:54-0400 Body weight 91.63 kg ERAN PRASAD RN [facility], [facility].; [facility] 03-04-2023 09:54-0400 Diastolic blood pressure 74 mm[Hg] ERAN PRASAD RN [facility], [facility].; [facility], [place]. Comment on above: Patient Position: Sitting; Cuff Location : Left Arm; Cuff Size: Large 03-04-2023 09:54-0400 Heart rate 72 /min ERAN PRASAD RN [facility], [facility].; [facility], [place]. Comment on above: Pattern: Regular 03-04-2023 09:54-0400 Systolic blood pressure 114 mm[Hg] ERAN PRASAD RN [facility], [facility].; [facility], [place]. Comment on above: Patient Position: Sitting; Cuff Location : Left Arm; Cuff Size: Large 09-10-2022 13:57-0400 Body height 167.64 cm Malka [facility], [facility].; [employer] [facility] [place]. 09-10-2022 13:57-0400 Body mass index (BMI) [Ratio] 32.12 kg/m2 [facility].; [facility] 09-10-2022 13:57-0400 Body surface area Derived from formula 2 m2 Malka [facility], [facility].; AM[facility]DA [facility] 09-10-2022 13:57-0400 Body weight 90.27 kg Malka [facility], [place].; [facility] 09-10-2022 13:57-0400 Diastolic blood pressure 79 mm[Hg] Malka [facility].; [facility] Comment on above: Patient Position: Sitting; Cuff Location : Left Arm; Cuff Size: Standard 09-10-2022 13:57-0400 Heart rate 81 /min [facility]a [facility].; AMANDA [facility] Comment on above: Pattern: Regular 09-10-2022 13:57-0400 Inhaled oxygen concentration 21 % [facility]alka [facility].; AMANDA [facility] Comment on above: Room air 09-10-2022 13:57-0400 SaO2% (BldA) [Mass fraction] 93 % Malka Rodriguez [facility].; [facility] 09-10-2022 13:57-0400 Systolic blood pressure 125 mm[Hg] Malka Rodriguez [facility].; [facility] Comment on above: Patient Position: Sitting; Cuff Location : Left Arm; Cuff Size: Standard 10-18-2021 10:27-0500 Body height 167.64 cm CHRISTIAN MAXWELL RN [facility], [place].; [facility], [place]. 10-18-2021 10:27-0500 Body mass index (BMI) [Ratio] 29.86 kg/m2 CHRISTIAN MAXWELL RN [facility].; [facility], [place]. 10-18-2021 10:27-0500 Body surface area Derived from formula 1.94 m2 CHRISTIAN MAXWELL RN [facility], [facility].; [facility] 10-18-2021 10:27-0500 Body temperature 97.5 [degF] CHRISTIAN MAXWELL RN [facility], [facility].; [facility] Comment on above: Method: Oral 10-18-2021 10:27-0500 Body weight 83.92 kg CHRISTIAN MAXWELL RN [facility], [facility].; [facility] [employer] 06-02-2021 11:10-0400 Body height 167.64 cm Arcelia Wang RN [facility], [facility].; [facility] 06-02-2021 11:10-0400 Body mass index (BMI) [Ratio] 29.7 kg/m2 Arcelia Wang RN [facility], [facility].; [facility] 06-02-2021 11:10-0400 Body surface area Derived from formula 1.93 m2 Arcelia Wang RN [facility], [facility].; [facility] [employer] 06-02-2021 11:10-0400 Body temperature 97.2 [degF] Arcelia Wang RN [facility], [facility].; [facility] Gloria [facility], [place]. Comment on above: Method: Oral 06-02-2021 11:100400 Body weight 83.46 kg Arcelia Wang RN [facility].; [facility] 06-02-2021 11:10-0400 Diastolic blood pressure 83 mm[Hg] Arcelia Wang RN [facility] [employer] [facility] Comment on above: Patient Position: Sitting; Cuff Location : Left Arm; Cuff Size: Standard 06-02-2021 11:10-0400 Heart rate 63 /min Arcelia aWng RN [facility], [facility] [employer] [facility] [employer] [facility] Comment on above: Pattern: Regular 06-02-2021 11:10-0400 Systolic blood pressure 126 mm[Hg] Arcelia Wang RN [facility], [facility].; [facility], [facility]. Comment on above: Patient Position: Sitting; Cuff Location : Left Arm; Cuff Size: Standard 03-09-2021 15:41-0400 Body height 167.64 cm Elizabeth Edmondson [facility], [facility].; [facility], [facility] 03-09-2021 15:41-0400 Body mass index (BMI) [Ratio] 29.7 kg/m2 Elizabeth Edmondson [facility], [facility].; [facility], [facility]. 03-09-2021 15:41-0400 Body surface area Derived from formula 1.93 m2 Elizabeth Edmondson [facility], [facility].; [facility], [facility]. 03-09-2021 15:41-0400 Body temperature 98.5 [degF] Elizabeth Edmondson [facility], [facility].; [facility], [facility]. Comment on above: Method: Oral 03-09-2021 15:41-0400 Body weight 83.46 kg Elizabeth Edmondson [facility], [facility].; [facility], [facility]. 03-09-2021 15:41-0400 Diastolic blood pressure 83 mm[Hg] Elizabeth Edmondson [facility].; [facility], [facility]. Comment on above: Patient Position: Sitting; Cuff Location : Left Arm; Cuff Size: Standard 03-09-2021 15:41-0400 Heart rate 87 /min Elizabeth Edmondson [facility], [facility].; [facility], [facility]. Comment on above: Pattern: Regular 03-09-2021 15:41-0400 Systolic blood pressure 149 mm[Hg] Elizabeth Edmondson [facility], [facility].; [facility], [facility]. Comment on above: Patient Position: Sitting; Cuff Location : Left Arm; Cuff Size: Standard 09-19-2020 09:42-0400 Body height 167.64 cm Michelle Toth [facility] 09-19-2020 09:42-0400 Body mass index (BMI) [Ratio] 29.05 kg/m2 [facility].; [facility] 09-19-2020 09:42-0400 Body surface area Derived from formula 1.91 m2 [facility].; [facility] 09-19-2020 09:42-0400 Body weight 81.65 kg [facility].; [facility] 09-19-2020 09:42-0400 Diastolic blood pressure 80 mm[Hg] [facility].; [facility] Comment on above: Patient Position: Sitting; Cuff Location : Left Arm; Cuff Size: Standard 09-19-2020 09:42-0400 Heart rate 74 /min [facility].; [facility] Comment on above: Pattern: Regular 09-19-2020 09:42-0400 Systolic blood pressure 114 mm[Hg] [facility].; [facility] Comment on above: Patient Position: Sitting; Cuff Location : Left Arm; Cuff Size: Standard 03-21-2020 11:01-0400 Body height 167.64 cm [facility].; [facility] 03-21-2020 11:01-0400 Body mass index (BMI) [Ratio] 30.99 kg/m2 [facility].; [facility] 03-21-2020 11:01-0400 Body surface area Derived from formula 1.97 m2 [facility].; [facility] [facility]-21-2020 11:01-0400 Body weight 87.09 [facility] 03-21-2020 11:01-0400 Diastolic blood pressure 79 mm[Hg] [facility] Comment on above: Patient Position: Sitting; Cuff Location : Left Arm; Cuff Size: Standard 03-21-2020 11:01-0400 Heart rate 74 /min [facility] Comment on above: Pattern: Regular 03-21-2020 11:01-0400 Systolic blood pressure 122 mm[Hg] [facility] Comment on above: Patient Position: Sitting; Cuff Location : Left Arm; Cuff Size: Standard 08-17-2019 09:54-0400 Body height 167.64 cm ERAN GRATE [facility], Inc.; [facility], [facility] 08-17-2019 09:54-0400 Body mass index (BMI) [Ratio] 30.99 kg/m2 ERAN GRATE PAIGE [facility], Inc.; [facility], [facility] 08-17-2019 09:54-0400 Body surface area Derived from formula 1.97 m2 ERAN GRATE [facility], Inc.; [facility], [facility] 08-17-2019 09:54-0400 Body weight 87.09 kg ERAN GRATE [facility], Inc.; [facility] 08-17-2019 09:54-0400 Diastolic blood pressure 67 mm[Hg] ERAN GRATE PAIGE [facility], Inc.; [facility], [facility] Comment on above: Patient Position: Sitting; Cuff Location : Left Arm; Cuff Size: Large 08-17-2019 09:54-0400 Heart rate 74 /min ERAN GRATE PAIGE [facility], Inc.; [place] [facility], Inc. Comment on above: Pattern: Regular 08-17-2019 09:54-0400 Systolic blood pressure 101 mm[Hg] ERAN GRATE PAIGE [facility], [place].; [facility] [place]. Comment on above: Patient Position: Sitting; Cuff Location : Left Arm; Cuff Size: Large 07-03-2019 09:21-0400 Body height 167.64 cm Bertha Tellez RN [facility], Inc.; [place] [facility], Inc[facility] 07-03-2019 09:21-0400 Body mass index (BMI) [Ratio] 30.83 kg/m2 Bertha Tellez RN [facility], Inc.; [facility] 07-03-2019 09:21-0400 Body surface area Derived from formula 1.96 m2 Bertha Tellez RN [facility], [facility].; [facility]ONS[facility]OSPITALGlobal Lumber Solutions [employer] [facility], [place]. 07-03-2019 09:21-0400 Body weight 86.64 kg Bertha Tellez RN [facility], [facility].; [facility]OSPITALGlobal Lumber Solutions [facility] Ph[facility] ChristianacareScientific Intake. 07-03-2019 09:21-0400 Diastolic blood pressure 76 mm[Hg] Bertha Tellez RN [facility], Inc.; Docea PowerCedar County Memorial HospitalScientific Intake. Comment on above: Patient Position: Sitting; Cuff Location : Left Arm; Cuff Size: Large 07-03-2019 09:21-0400 Heart rate 64 /min Bertha Tellez RN [facility], [place].; LAROSE [place]OW CREEKOuachita and [place] [employer] ChristianacareSCONTO DIGITALE Inc. Comment on above: Pattern: Regular 07-03-2019 09:21-0400 Systolic blood pressure 115 mm[Hg] Bertha Tellez RN [facility], [place].; [place] [facility], Inc. Comment on above: Patient Position: Sitting; Cuff Location : Left Arm; Cuff Size: Large 12-12-2018 10:08-0500 Body height 167.64 cm Tanja JOHNSON MD Work Phone: [facility] Phorest ChristianacareScientific Intake.; ITemaEK [employer] [facility] Qwite ChristianacareSCONTO DIGITALE Inc. 12-12-2018 10:08-0500 Body mass index (BMI) [Ratio] 32.12 kg/m2 Tanja JOHNSON MD Work Phone: [employer]. 12-12-2018 10:08-0500 Body surface area Derived from formula 2 m2 Tanja JOHNSON MD Work Phone: [employer].; [employer]. 12-12-2018 10:08-0500 Body weight 90.27 kg Tanja JOHNSON MD Work Phone: [employer].; [employer]. 12-12-2018 10:08-0500 Diastolic blood pressure 83 mm[Hg] Tanja JOHNSON MD Work Phone: [employer].; [employer]. Comment on above: Patient Position: Sitting; Cuff Location : Left Arm; Cuff Size: Standard 12-12-2018 10:08-0500 Heart rate 80 /min Tanja JOHNSON MD Work Phone: [employer]. Comment on above: Pattern: Regular 12-12-2018 10:08-0500 Systolic blood pressure 131 mm[Hg] Tanja JOHNSON MD Work Phone: [employer].; [employer]. Comment on above: Patient Position: Sitting; Cuff Location : Left Arm; Cuff Size: Standard 07-18-2018 09:51-0400 Body height 167.64 cm ERICASportSetterYER [employer].; ITemaEK [employer]. 07-18-2018 09:51-0400 Body mass index (BMI) [Ratio] 30.83 kg/m2 FengxiafeiYER [employer].; IT[employer]. 07-18-2018 09:51-0400 Body surface area Derived from formula 1.96 m2 ERICASportSetterGalion Hospital ComAbility.; ITemaEK [employer] [facility], Inc. 07-18-2018 09:51-0400 Body weight 86.64 kg ERICA LOWELL [facility], Inc.; [employer] [facility] Gloria [facility], Inc. 07-18-2018 09:51-0400 Diastolic blood pressure 80 mm[Hg] [facility], Inc.; [employer] [place] [employer] [facility], Inc. Comment on above: Patient Position: Sitting; Cuff Location : Left Arm; Cuff Size: Standard 07-18-2018 09:51-0400 Heart rate 74 /min ERICA [facility], Inc.; [employer] [facility], Inc. Comment on above: Pattern: Regular 07-18-2018 09:51-0400 Systolic blood pressure 113 mm[Hg] [facility], Inc.; [employer]EK [employer] [facility] Gloria [facility], Inc. Comment on above: Patient Position: Sitting; Cuff Location : Left Arm; Cuff Size: Standard 01-21-2018 09:15-0500 Body height 167.64 cm JAYLINFormerly [facility], Inc.; [employer] [facility], Inc. 01-21-2018 09:15-0500 Body mass index (BMI) [Ratio] 31.31 kg/m2 [facility], Inc.; TONSIL HOSPITALGlobal Lumber Solutions [place] [employer] [facility], Inc. 01-21-2018 09:15-0500 Body surface area Derived from formula 1.97 m2 [facility], Inc.; [employer] [place] [employer] [facility] [employer] [facility], Inc. 01-21-2018 09:15-0500 Body temperature 97.8 [degF] [facility], Inc.; [employer] [facility], Inc. Comment on above: Method: Oral 01-21-2018 09:15-0500 Body weight 88 kg [facility], Inc.; ITemaLakeview Regional Medical CenterWorldStores [facility], Inc. 01-21-2018 09:15-0500 Diastolic blood pressure 74 mm[Hg] [facility] Centeres Family CareSCONTO DIGITALE Inc.; ITemaEK [employer] [facility] Phorest Christian[facility]areSCONTO DIGITALE Inc. Comment on above: Patient Position: Sitting; Cuff Location : Left Arm; Cuff Size: Standard 01-21-2018 09:15-0500 Heart rate 84 /min JAYLIN MAXWELL [facility], Inc.; [employer] [facility] Phorest ChristianacareSCONTO DIGITALE Inc. Comment on above: Pattern: Regular 01-21-2018 09:15-0500 Systolic blood pressure 105 mm[Hg] JAYLIN MAXWELL [facility], Inc.; [employer] [facility], Inc. Comment on above: Patient Position: Sitting; Cuff Location : Left Arm; Cuff Size: Standard 01-03-2018 09:22-0500 Body height 167.64 cm Tanja JOHNSON MD Work Phone: [facility] Phorest ChristianacareScientific Intake.; ITemaEK [employer] [facility] Phorest ChristianacareSCONTO DIGITALE Inc. 01-03-2018 09:22-0500 Body mass index (BMI) [Ratio] 30.99 kg/m2 Tanja JOHNSON MD Work Phone: [facility] Phorest ChristianacareScientific Intake.; ITemaEK [employer] [facility], Inc. 01-03-2018 09:22-0500 Body surface area Derived from formula 1.97 m2 Tanja JOHNSON MD Work Phone: [facility] Phorest ChristianacareScientific Intake.; ITemaEK [employer] [facility] Phorest ChristianacareSCONTO DIGITALE Inc. 01-03-2018 09:22-0500 Body weight 87.09 kg Tanja JOHNSON MD Work Phone: [facility] Phorest Christian[facility]areScientific Intake.; ITemaEK [employer] [facility] [employer] Inc. 01-03-2018 09:22-0500 Diastolic blood pressure 83 mm[Hg] Tanja JOHNSON MD Work Phone: [facility] HospitalWorldStores [facility]areScientific Intake.; ITemaEK [employer] [facility] ComAbility. Comment on above: Patient Position: Sitting; Cuff Location : Left Arm; Cuff Size: Standard 01-03-2018 09:22-0500 Heart rate 79 /min Tanja JOHNSON MD Work Phone: [employer]. Comment on above: Pattern: Regular 01-03-2018 09:22-0500 Systolic blood pressure 123 mm[Hg] Tanja JOHNSON MD Work Phone: [employer]. Comment on above: Patient Position: Sitting; Cuff Location : Left Arm; Cuff Size: Standard 05-24-2017 10:36-0400 Body height 167.64 cm [facility] TULSAJessica Hicks [employer] [facility]areScientific Intake.; [employer]. 05-24-2017 10:36-0400 Body mass index (BMI) [Ratio] 31.47 kg/m2 FABIAN Hicks [employer] [facility]areSCONTO DIGITALE Inc.; [employer]. 05-24-2017 10:36-0400 Body surface area Derived from formula 1.98 m2 FABIAN Hicks [employer] [facility]Scientific Intake.; [employer]. 05-24-2017 10:36-0400 Body weight 88.45 kg AMAJessica Hicks [employer].; ITemaEK [employer] Incorporated. 05-24-2017 10:36-0400 Diastolic blood pressure 74 mm[Hg] FABIAN Hicks [employer] Inc.; ITemaE[employer]. Comment on above: Patient Position: Sitting; Cuff Location : Left Arm; Cuff Size: Standard 05-24-2017 10:36-0400 Heart rate 80 /min FABIAN Hicks [employer].; [employer]. Comment on above: Pattern: Regular 05-24-2017 10:36-0400 Systolic blood pressure 115 mm[Hg] FABIAN Hicks [employer]. Comment on above: Patient Position: Sitting; Cuff Location : Left Arm; Cuff Size: Standard 12-21-2016 11:06-0500 Body height 167.64 cm Tanja JOHNSON MD Work Phone: [employer]. 12-21-2016 11:06-0500 Body mass index (BMI) [Ratio] 30.69 kg/m2 Tanja JOHNSON MD Work Phone: [employer].; [employer]. 12-21-2016 11:06-0500 Body surface area Derived from formula 1.96 m2 Tanja JOHNSON MD Work Phone: [employer].; [employer]. 12-21-2016 11:06-0500 Body weight 86.24 kg Tanja JOHNSON MD Work Phone: [employer].; [employer]. 12-21-2016 11:06-0500 Diastolic blood pressure 75 mm[Hg] Tanja JOHNSON MD Work Phone: [employer].; [employer]. Comment on above: Patient Position: Sitting; Cuff Location : Left Arm; Cuff Size: Standard 12-21-2016 11:06-0500 Heart rate 77 /min Tanja JOHNSON MD Work Phone: [employer]; [employer] [facility] ComAbility. Comment on above: Pattern: Regular 12-21-2016 11:06-0500 Systolic blood pressure 110 mm[Hg] Tanja JOHNSON MD Work Phone: [employer] [facility] ComAbility. Comment on above: Patient Position: Sitting; Cuff Location : Left Arm; Cuff Size: Standard 07-27-2016 15:07-0400 Body height 167.64 cm FABIAN WILLARD [facility] ComAbility.; ITemaEK [employer] [facility] ComAbility. 07-27-2016 15:07-0400 Body mass index (BMI) [Ratio] 29.21 kg/m2 FABIAN Gordon [employer] [facility], Inc.; [facility] HOSPITALSHANNON [place] [employer] [facility], Inc. 07-27-2016 15:07-0400 Body surface area Derived from formula 1.92 m2 FABIAN Fabiola MONTSE Gordon [employer] [facility], Inc.; TONSIL HOSPITALGlobal Lumber Solutions [place] [employer] [facility] [employer] [facility], Inc. 07-27-2016 15:07-0400 Body weight 82.1 kg AMAJessica Hicks MONTSE Gordon [employer] [facility], Inc.; TONSIL HOSPITALGlobal Lumber Solutions [place] [employer] [facility] [employer], Inc. 07-27-2016 15:07-0400 Diastolic blood pressure 77 mm[Hg] FABIAN Gordon Qw[employer] ChristianacareSCONTO DIGITALE Inc.; TONSIL HOSPITALGlobal Lumber Solutions [employer] [facility] [employer] [facility], [place]. Comment on above: Patient Position: Sitting; Cuff Location : Left Arm; Cuff Size: Standard 07-27-2016 15:07-0400 Heart rate 78 /min FABIAN Gordon [employer] Christian[facility]areScientific Intake.; ITemaNovant Health Qwite [facility]Scientific Intake. Comment on above: Pattern: Regular 07-27-2016 15:07-0400 Systolic blood pressure 120 mm[Hg] FABIAN Gordon [employer] Christian[facility]areScientific Intake.; TONSIL HOSPITALDigitalVisionEK [employer]zillions [facility] [employer] [facility], Inc. Comment on above: Patient Position: Sitting; Cuff Location : Left Arm; Cuff Size: Standard 03-16-2016 15:37-0400 Body height 167.64 cm AMAJessica Hicks WILLARD [employer] [facility], Inc.; LITTLE BIRCH [employer] [facility] [employer] [facility], Inc. 03-16-2016 15:37-0400 Body mass index (BMI) [Ratio] 30.02 kg/m2 AMAJessica Hicks MONTSE Gordon Qwite [facility]areSCONTO DIGITALE Inc.; [facility] [employer] [facility], Inc. 03-16-2016 15:37-0400 Body surface area Derived from formula 1.94 m2 AMAJessica Hicks WILLARD [employer] Inc.; [facility], ColumbiaDashbid, Inc. 03-16-2016 15:37-0400 Body weight 84.37 kg AMAJessica Hicks [employer] [facility], Inc.; [facility], ColumbiaWorldStores [facility], Inc. 03-16-2016 15:37-0400 Diastolic blood pressure 73 mm[Hg] FABIAN Hicks WILLARD [employer] [facility], Inc.; [employer] [facility], Inc. Comment on above: Patient Position: Sitting; Cuff Location : Left Arm; Cuff Size: Standard 03-16-2016 15:37-0400 Heart rate 81 /min AMAJessica Hicks MONTSE Gordon [employer] [facility], Inc.; [employer], Inc. Comment on above: Pattern: Regular 03-16-2016 15:37-0400 Systolic blood pressure 108 mm[Hg] AMAJessica Hicks WILLARD [employer], Inc.; [employer], Inc. Comment on above: Patient Position: Sitting; Cuff Location : Left Arm; Cuff Size: Standard 10-14-2015 13:06-0500 Body height 167.64 cm AMAJessica Hicks WILLARD [facility] [employer] [facility], Inc.; [employer], Inc. 10-14-2015 13:06-0500 Body mass index (BMI) [Ratio] 29.38 kg/m2 AMAJessica Hicks [facility] HospitalWorldStores [facility], Inc.; [facility] [employer] [facility], Inc. 10-14-2015 13:06-0500 Body surface area Derived from formula 1.92 m2 AMAJessica Hicks WILLARD [employer] [facility], Inc.; [employer] [facility], Inc. 10-14-2015 13:06-0500 Body weight 82.56 kg AMAJessica Hicks [facility] [employer]wite [facility], Inc.; [employer], Inc. 10-14-2015 13:06-0500 Diastolic blood pressure 69 mm[Hg] AMAJessica Hicks [facility] Qwite ChristianacareSCONTO DIGITALE Inc.; [employer] [facility] HospitalWorldStores [facility], Inc. Comment on above: Patient Position: Sitting; Cuff Location : Left Arm; Cuff Size: Standard 10-14-2015 13:06-0500 Heart rate 80 /min AMAJessica Hicks WILLARD [employer], Inc.; [employer], Inc. Comment on above: Pattern: Regular 10-14-2015 13:06-0500 Systolic blood pressure 106 mm[Hg] AMAJessica Hicks WILLARD [employer], Inc.; [employer], Inc. Comment on above: Patient Position: Sitting; Cuff Location : Left Arm; Cuff Size: Standard 04-01-2015 12:59-0400 Body height 167.64 cm R FRANCIS KORNHAUS MD Work Phone: [facility] HospitalWorldStores ChristianacareScientific Intake.; [employer] [facility] Phorest Christian[facility]areScientific Intake. 04-01-2015 12:59-0400 Body mass index (BMI) [Ratio] 27.6 kg/m2 Tanja JOHNSON MD Work Phone: [facility] HospitalWorldStores Christian[facility]areScientific Intake.; [employer] [facility] Phorest ChristianacareSCONTO DIGITALE Inc. 04-01-2015 12:59-0400 Body surface area Derived from formula 1.87 m2 Tanja JOHNSON MD Work Phone: [facility] HospitalWorldStores Christian[facility]areScientific Intake.; [employer] [facility] Phorest ChristianacareScientific Intake. 04-01-2015 12:59-0400 Body weight 77.57 kg Tanja JOHNSON MD Work Phone: [facility] HospitalGO-SIM.; [employer] [facility] [employer]. 04-01-2015 12:59-0400 Diastolic blood pressure 72 mm[Hg] Tanja JOHNSON MD Work Phone: [facility] HospitalGO-SIM.; [employer] [facility] [employer]. Comment on above: Patient Position: Sitting; Cuff Location : Left Arm; Cuff Size: Standard 04-01-2015 12:59-0400 Heart rate 83 /min Tanja JOHNSON MD Work Phone: [facility] ComAbility.; [employer] [facility] ComAbility. Comment on above: Pattern: Regular 04-01-2015 12:59-0400 Systolic blood pressure 108 mm[Hg] Tanja JOHNSON MD Work Phone: [facility] [employer].; [employer] [facility] [employer]. Comment on above: Patient Position: Sitting; Cuff Location : Left Arm; Cuff Size: Standard 12-10-2014 13:14-0500 Body height 167.64 cm JEROME GigSkyLafourche, St[place] and [place]re[place] parishesWorldStores ChristianacareScientific Intake.; [employer] [facility] [employer], Inc. 12-10-2014 13:14-0500 Body mass index (BMI) [Ratio] 27.12 kg/m2 [facility], Inc.; [facility], Inc. 12-10-2014 13:14-0500 Body surface area Derived from formula 1.[address] [facility], Inc.; [facility], Inc. 12-10-2014 13:14-0500 Body weight 76.[address] [facility], Inc.; [facility], Inc. 12-10-2014 13:14-0500 Diastolic blood pressure 72 mm[Hg] [facility], Inc.; [facility], Inc. Comment on above: Patient Position: Sitting; Cuff Location : Left Arm; Cuff Size: Standard 12-10-2014 13:14-0500 Heart rate 82 /min [facility], Inc.; [employer] [facility], Inc. Comment on above: Pattern: Regular 12-10-2014 13:14-0500 Systolic blood pressure 114 mm[Hg] [facility], Inc.; [facility] [employer] [facility], Inc. Comment on above: Patient Position: Sitting; Cuff Location : Left Arm; Cuff Size: Standard 09-17-2014 13:04-0400 Body height 167.64 cm [facility], [facility].; [facility] [facility], Inc. 09-17-2014 13:04-0400 Body mass index (BMI) [Ratio] 26.79 kg/m2 [facility], [facility].; [facility], Inc. 09-17-2014 13:04-0400 Body surface area Derived from formula 1.85 m2 [facility], [facility].; [facility], Inc. 09-17-2014 13:04-0400 Body weight 75.3 kg [facility], [facility].; [facility], Inc. 09-17-2014 13:04-0400 Diastolic blood pressure 76 mm[Hg] [facility], Inc.; [facility] HospitalScientific Intake. Comment on above: Patient Position: Sitting; Cuff Location : Left Arm; Cuff Size: Standard 09-17-2014 13:04-0400 Heart rate 83 /min JAYLIN [facility] – CentralScientific Intake.; [place] [employer] [facility] HealthcareScientific Intake. Comment on above: Pattern: Regular 09-17-2014 13:04-0400 Systolic blood pressure 128 mm[Hg] JAYLIN SAMSONALISSA [facility] HealthcareSCONTO DIGITALE Inc.; [place] [employer] [facility] HealthcareScientific Intake. Comment on above: Patient Position: Sitting; Cuff Location : Left Arm; Cuff Size: Standard 04-09-2014 10:48-0400 Body height 167.64 cm Tanja JOHNSON MD Work Phone: [facility] HealthcareScientific Intake.; [employer] [facility] Phorest ChristianacareScientific Intake. 04-09-2014 10:48-0400 Body mass index (BMI) [Ratio] 25.34 kg/m2 Tanja JOHNSON MD Work Phone: [facility] Phorest ChristianacareScientific Intake.; [employer] [facility] Ph[employer] Christian[facility]areScientific Intake. 04-09-2014 10:48-0400 Body surface area Derived from formula 1.8 m2 Tanja JOHNSON MD Work Phone: [facility] HealthcareScientific Intake.; [employer] [facility] Ph[employer] Christian[facility]areScientific Intake. 04-09-2014 10:48-0400 Body weight 71.22 kg Tanja JOHNSON MD Work Phone: [facility] Phorest ChristianacareScientific Intake.; [employer] [facility] HealthcareScientific Intake. 04-09-2014 10:48-0400 Diastolic blood pressure 73 mm[Hg] Tanja JOHNSON MD Work Phone: [facility] Phorest ChristianacareScientific Intake.; [employer] [facility] [employer]. Comment on above: Patient Position: Sitting; Cuff Location : Left Arm; Cuff Size: Large 04-09-2014 10:48-0400 Heart rate 76 /min Tanja JOHNSON MD Work Phone: [facility] Phorest ChristianacareScientific Intake.; [employer] [facility] [employer]. Comment on above: Pattern: Regular 04-09-2014 10:48-0400 Systolic blood pressure 113 mm[Hg] Tanja JOHNSON MD Work Phone: [employer]; [employer]. Comment on above: Patient Position: Sitting; Cuff Location : Left Arm; Cuff Size: Large 02-12-2014 12:59-0400 Body height 167.64 cm Tanja JOHNSON MD Work Phone: [employer]. 02-12-2014 12:59-0400 Body mass index (BMI) [Ratio] 25.34 kg/m2 Tanja JOHNSON MD Work Phone: [employer]; [employer]. 02-12-2014 12:59-0400 Body surface area Derived from formula 1.8 m2 Tanja JOHNSON MD Work Phone: [employer]; [employer]. 02-12-2014 12:59-0400 Body weight 71.22 kg Tanja JOHNSON MD Work Phone: [employer]; [employer]. 02-12-2014 12:59-0400 Diastolic blood pressure 62 mm[Hg] Tanja JOHNSON MD Work Phone: [employer]; [employer]. Comment on above: Patient Position: Sitting; Cuff Location : Left Arm; Cuff Size: Standard 02-12-2014 12:59-0400 Heart rate 72 /min Tanja JOHNSON MD Work Phone: [employer]; [employer]. Comment on above: Pattern: Regular 02-12-2014 12:59-0400 Systolic blood pressure 100 mm[Hg] Tanja JOHNSON MD Work Phone: [employer]; [employer] ([employer]) Comment on above: Patient Position: Sitting; Cuff Location : Left Arm; Cuff Size: Standard 11-20-2013 13:110500 Body height 167.64 cm Tanja JOHNSON MD Work Phone: [employer]; [employer] ([employer]) 11-20-2013 13:11-0500 Body mass index (BMI) [Ratio] 24.37 kg/m2 Tanja JOHNSON MD Work Phone: [employer]; [employer]. 11-20-2013 13:11-0500 Body surface area Derived from formula 1.78 m2 Tanja JOHNSON MD Work Phone: [employer]; [employer] ([employer]) 11-20-2013 13:110500 Body weight 68.49 kg Tanja JOHNSON MD Work Phone: [employer]; [employer] ([employer]) 11-20-2013 13:110500 Diastolic blood pressure 64 mm[Hg] Tanja JOHNSON MD Work Phone: [employer]; [employer]. Comment on above: Patient Position: Sitting; Cuff Location : Right Arm; Cuff Size: Standard 11-20-2013 13:110500 Heart rate 80 /min Tanja JOHNSON MD Work Phone: [employer]; [employer] ([employer]) Comment on above: Pattern: Regular 11-20-2013 13:11-0500 Systolic blood pressure 98 mm[Hg] Tanja JOHNSON MD Work Phone: [employer]; [employer] ([employer]) Comment on above: Patient Position: Sitting; Cuff Location : Right Arm; Cuff Size: Standard 11-03-2013 14:23-0500 Body height 167.64 cm FABIAN WILLARD [facility] Com[employer]ility.; [employer] [facility] Com[employer]ility. 11-03-2013 14:23-0500 Body mass index (BMI) [Ratio] 23.89 kg/m2 FABIAN Hicks [facility] [employer] Christian[facility]areSCONTO DIG[facility].; [facility] [employer] Christian[facility]areSCONTO DIGIT[facility]. 11-03-2013 14:23-0500 Body surface area Derived from formula 1.76 m2 AMAJessica Hicks [facility], Inc.; [facility], [facility]. 11-03-2013 14:23-0500 Body weight 67.13 kg AMAJessica Hicks [facility] [employer] [facility]SCON[facility] DIG[facility].; [facility] [employer] [facility]areSCONTO DIGIT[facility]. 11-03-2013 14:23-0500 Diastolic blood pressure 73 mm[Hg] [facility] Fabiola [facility] [employer] ChristianacareScientific Intake.; [facility] [employer] Christian[facility]areSCONTO DIGITALE [facility]. Comment on above: Patient Position: Sitting; Cuff Location : Left Arm; Cuff Size: Standard 11-03-2013 14:23-0500 Heart rate 76 /min FABIAN Hicks [facility] [employer] ChristianacareScientific Intake.; [employer] [facility] [employer]orest ChristianacareSCONTO DIGITALE [facility]. Comment on above: Pattern: Regular 11-03-2013 14:23-0500 Systolic blood pressure 113 mm[Hg] FABIAN Fabiola WILLARD [facility] [employer] ChristianacareScientific Intake.; [facility] [employer] Christian[facility]areSCONTO DIGITALE [facility]. Comment on above: Patient Position: Sitting; Cuff Location : Left Arm; Cuff Size: Standard 10-16-2013 19:05-0500 Body height 167.64 cm Tanja JOHNSON MD Work Phone: [facility] HospitalWorldSto[facility]SC[facility] DIGITALE [facility].; [facility] [employer] Christian[facility]areSCONTO DIGITALE [facility]. 10-16-2013 19:05-0500 Body mass index (BMI) [Ratio] 23.4 kg/m2 Tanja JOHNSON MD Work Phone: [facility] HospitalWorldSto[facility]areScientific Intake.; [facility] [employer] ChristianacareSCONTO DIGITALE [facility]. 10-16-2013 19:05-0500 Body surface area Derived from formula 1.74 m2 Tanja JOHNSON MD Work Phone: [facility] HospitalWorldSto[facility] Christian[facility]areScientific Intake.; [employer] [facility], [place]. 10-16-2013 19:05-0500 Body weight 65.77 kg Tanja JOHNSON MD Work Phone: [facility] GloriaGO-SIM.; [employer] [facility] [employer]wite Christian[facility]areScientific Intake. 10-16-2013 19:05-0500 Diastolic blood pressure 73 mm[Hg] Tanja JOHNSON MD Work Phone: [facility] HospitalGO-SIM.; [employer] [facility] [employer] Christian[facility]areScientific Intake. Comment on above: Patient Position: Sitting; Cuff Location : Left Arm; Cuff Size: Standard 10-16-2013 19:05-0500 Heart rate 88 /min Tanja JOHNSON MD Work Phone: [facility] HospitalWorldStores Christian[facility]areScientific Intake.; [employer] [facility] ComAbility. Comment on above: Pattern: Regular 10-16-2013 19:05-0500 Systolic blood pressure 133 mm[Hg] Tanja JOHNSON MD Work Phone: [facility] HospitalGO-SIM.; [employer] [facility] ComAbility. Comment on above: Patient Position: Sitting; Cuff Location : Left Arm; Cuff Size: Standard 07-19-2011 13:45-0400 Body temperature 98.2 [degF] Michelle [facility] [employer] GloriaGO-SIM.; [employer] [facility] ComAbility. Comment on above: Method: Oral 07-19-2011 13:45-0400 Body weight 80.29 kg Michelle [facility] [employer].; [employer] [facility] Qwite ChristianacareSCONTO DIGITALE Inc. 07-19-2011 13:45-0400 Diastolic blood pressure 71 mm[Hg] [facility] [employer].; [employer] [facility] HospitalWorldStores Christian[facility]areScientific Intake. Comment on above: Patient Position: Sitting; Cuff Location : Left Arm; Cuff Size: Standard 07-19-2011 13:45-0400 Heart rate 80 /min Michelle [facility] [employer].; [employer]. Comment on above: Pattern: Regular 07-19-2011 13:45-0400 Systolic blood pressure 109 mm[Hg] [employer].; [employer] [facility] ComAbility. Comment on above: Patient Position: Sitting; Cuff Location : Left Arm; Cuff Size: Standard 07-17-2011 13:45-0400 Body height 167.64 cm Tanja JOHNSON MD Work Phone: [employer].; [employer]. 07-17-2011 13:45-0400 Body mass index (BMI) [Ratio] 28.89 kg/m2 Tanja JOHNSON MD Work Phone: [employer].; [employer]. 07-17-2011 13:45-0400 Body surface area Derived from formula 1.91 m2 Tanja JOHNSON MD Work Phone: [employer]; [employer]. 07-17-2011 13:45-0400 Body temperature 98.6 [degF] Tanja JOHNSON MD Work Phone: [employer]; [employer]. Comment on above: Method: Oral 07-17-2011 13:45-0400 Body weight 81.19 kg Tanja JOHNSON MD Work Phone: [employer]; [employer]. 07-17-2011 13:45-0400 Diastolic blood pressure 66 mm[Hg] Tanja JOHNSON MD Work Phone: [employer]; [employer]. Comment on above: Patient Position: Sitting; Cuff Location : Left Arm; Cuff Size: Large 07-17-2011 13:45-0400 Heart rate 97 /min Tanja JOHNSON MD Work Phone: [employer]; [employer]. Comment on above: Pattern: Regular 07-17-2011 13:45-0400 Systolic blood pressure 100 mm[Hg] Tanja JOHNSON MD Work Phone: [employer].; [employer]. Comment on above: Patient Position: Sitting; Cuff Location : Left Arm; Cuff Size: Large 03-14-2011 14:04-0400 Body height 167.64 cm Tanja JOHNSON MD Work Phone: [employer].; [employer]. 03-14-2011 14:04-0400 Body mass index (BMI) [Ratio] 30.02 kg/m2 Tanja JOHNSON MD Work Phone: [employer].; [employer]. 03-14-2011 14:04-0400 Body surface area Derived from formula 1.94 m2 Tanja JOHNSON MD Work Phone: [employer].; [employer]. 03-14-2011 14:04-0400 Body temperature 98.1 [degF] Tanja JOHNSON MD Work Phone: [employer]; [employer]. Comment on above: Method: Oral 03-14-2011 [id number] Body weight 84.37 kg Tanja JOHNSON MD Work Phone: [employer]; [employer]. 03-14-2011 14:04-0400 Diastolic blood pressure 74 mm[Hg] Tanja JOHNSON MD Work Phone: [employer]; [employer]. Comment on above: Patient Position: Sitting; Cuff Location : Left Arm; Cuff Size: Standard 03-14-2011 14:04-0400 Heart rate 85 /min Tanja JOHNSON MD Work Phone: [employer]; [employer]. Comment on above: Pattern: Regular 03-14-2011 14:04-0400 Systolic blood pressure 108 mm[Hg] Tanja JOHNSON MD Work Phone: [employer].; [employer]. Comment on above: Patient Position: Sitting; Cuff Location : Left Arm; Cuff Size: Standard Encounters Encounter Date Encounter Type Care Provider Facility Start: 10-06-2025 End: 10-06-2025 Follow-up encounter MICHELLE LOUIE FILL TECHNICIAN-C Work Phone: [employer] [facility] [employer] Start: 10-05-2025 End: 10-05-2025 Office outpatient visit 15 minutes MICHELLE LOUIE FILL TECHNICIAN-C [facility] Phone: [facility]. Start: 09-30-2025 ambulatory No Primary Car e Physician Facility:[facility] Start: 09-21-2025 End: 09-21-[address] Alyx Chambers MD -[facility] Work Phone: Start: 09-21-2025 End: 09-21-2025 ambulatory No Primary Care Physician Facility:[facility] Start: 08-24-2025 End: 08-24-[address] Alyx Chambers MD -[facility] Work Phone: Start: 08-24-2025 End: 08-24-2025 ambulatory No Primary Care Physician -[facility] Start: 07-20-[address] Alyx harper MD -Physical Therapy Work Phone: Start: 06-01-2025 Non-patient / Non-visit Dr. Alyx cope MD -[facility] Work Phone: Start: 04-19-2025 End: 04-19-2025 Office outpatient visit 15 minutes MICHELLE LOUIE FILL TECHNICIAN-C Work Phone: [employer] [facility] [employer]. Start: 03-04-2025 End: 03-04-2025 Follow-up encounter MICHELLE LOUIE FILL TECHNICIAN-C Work Phone: [employer] [place] [employer]. Start: 03-03-2025 End: 03-03-2025 ambulatory MICHELLE Dragan PALMA [facility] Start: 03-02-2025 End: 03-02-2025 ambulatory FRANCIS RENO MD Facility:A Start: 02-26-2025 End: 02-26-2025 Results Review MICHELLE [employer] FILL TECHNICIAN-C Work Phone: [facility] [employer] [facility] Start: 02-23-2025 Review MICHELLE [employer] FILL TECHNICIAN-C Work Phone: [facility] [employer] [facility]FirstRain Start: 02-23-2025 End: 02-23-2025 Office outpatient visit 15 minutes MICHELLE LOUIE FILL TECHNICIAN-C Work Phone: [facility] [employer] [place] [employer] [facility] [employer] [facility]FirstRain Start: 02-23-2025 Review MICHELLE [employer] FILL TECHNICIAN-C Work Phone: [facility] [employer] [facility] Start: 07-21-2024 End: 07-22-2024 Medication Refill/Order Tanja JOHNSON MD Work Phone: [facility] [employer] [facility] Start: 07-17-2024 End: 07-17-2024 Follow-up encounter Tanja JOHNSON MD Work Phone: [facility] [employer] [facility] Start: 07-16-2024 End: 07-16-2024 Office outpatient visit 15 minutes Tanja JOHNSON MD Work Phone: [facility] [employer] ChristianacareScientific Intake Start: 02-11-2024 End: 02-12-[address] JUWAN SERRA MD Facility:A Start: 02-11-2024 End: 02-11-[address] JUWAN SERRA MD [facility] Start: 01-02-2024 End: 01-03-[address] JUWAN SERRA MD Facility:A Start: 08-06-2023 End: 08-06-2023 Office outpatient visit 15 minutes Tanja JOHNSON MD Work Phone: [employer] Start: 03-07-2023 End: 03-07-2023 Follow-up encounter Tanja JOHNSON MD Work Phone: [employer]. Start: 03-04-2023 End: 03-09-2023 [facility] BELKIS AUGUSTE COATING MACHINE OPERATOR-RETORT FURNACE OPERATOR Facility:A Start: 03-04-2023 End: 03-04-2023 Office outpatient visit 15 minutes Tanja JOHNSON MD Work Phone: [employer]. Start: 12-13-2022 End: 12-13-2022 Follow-up encounter Tanja JOHNSON MD Work Phone: [employer]. Start: 12-12-2022 End: 12-12-2022 Lab Only Tanja JOHNSON MD Work Phone: [employer] Start: 12-10-2022 End: 12-10-2022 Medication Refill/Order Tanja JOHNSON MD Work Phone: [employer]. Start: 09-10-2022 End: 09-10-2022 Office outpatient visit 15 minutes Tanja JOHNSON MD Work Phone: [employer]. Start: 10-21-2021 End: 10-21-2021 Medication Refill/Order Tanja JOHNSON MD Work Phone: [employer]. Start: 10-18-2021 End: 10-18-2021 Office outpatient visit 15 minutes Tanja JOHNSON MD Work Phone: [employer] [facility] [employer] Start: 06-03-2021 End: 06-03-2021 Follow-up encounter Tanja JOHNSON MD Work Phone: [employer]. Start: 06-02-2021 End: 06-02-2021 Office outpatient visit 15 minutes Tanja JOHNSON MD Work Phone: [facility] [employer] ChristianacareScientific Intake. Start: 03-17-2021 End: 03-17-2021 Medication Refill/Order Tanja JOHNSON MD Work Phone: [facility]. Start: 03-09-2021 End: 03-09-2021 Medication Refill/Order Tanja JOHNSON MD Work Phone: [facility] [employer] ChristianacareScientific Intake. Start: 03-09-2021 End: 03-09-2021 Office outpatient visit 15 minutes Tanja JOHNSON MD Work Phone: [facility] [employer] [facility]areFirstRain Start: 09-19-2020 End: 09-19-2020 Office outpatient visit 15 minutes Tanja JOHNSON MD Work Phone: [facility] [employer] Start: 03-23-2020 End: 03-23-2020 Follow-up encounter Tanja JOHNSON MD Work Phone: [facility] [employer]. Start: 03-21-2020 End: 03-21-2020 Historical Summary Tanja JOHNSON MD Work Phone: [facility] [employer] ChristianacareScientific Intake. Start: 03-21-2020 End: 03-21-2020 Office outpatient visit 15 minutes Tanja JOHNSON MD Work Phone: [employer] [facility] [employer]. Start: 02-11-2020 End: 02-11-2020 Follow-up encounter Tanja JOHNSON MD Work Phone: [facility] [employer] [facility] ComAbility. Start: 02-10-2020 End: 02-10-2020 Lab Only Tanja JOHNSON MD Work Phone: [facility] [employer] [facility] ComAbility. Start: 12-02-2019 End: 12-02-2019 Results Review Tanja JOHNSON MD Work Phone: [employer] [place] [employer]. Start: 11-30-2019 End: 11-30-2019 Lab Only Tanja JOHNSON MD Work Phone: [employer] [place] [employer]. Start: 09-30-2019 End: 09-30-2019 Results Review Tanja JOHNSON MD Work Phone: [employer] [place] [employer]. Start: 09-28-2019 End: 09-28-2019 Lab Only Tanja JOHNSON MD Work Phone: [employer] [place] [employer]. Start: 08-17-2019 End: 08-17-2019 Office outpatient visit 15 minutes Tanja JOHNSON MD Work Phone: [employer] [place] [employer]. Start: 07-03-2019 End: 07-03-2019 Office outpatient visit 15 minutes Tanja JOHNSON MD Work Phone: [employer] [place] [employer]. Start: 03-06-2019 End: 03-06-2019 Medication Refill/Order Tanja JOHNSON MD Work Phone: [employer] [place] [employer]. Start: 12-13-2018 End: 12-13-2018 Results Review Tanja JOHNSON MD Work Phone: [facility] ComAbility. Start: 12-12-2018 End: 12-12-2018 Office outpatient visit 15 minutes Tanja JOHNSON MD Work Phone: [employer]. Start: 07-18-2018 End: 07-18-2018 Office outpatient visit 10 minutes Tanja JOHNSON MD Work Phone: [employer]. Start: 04-01-2018 End: 04-01-2018 Medication Refill/Order Tanja JOHNSON MD Work Phone: [employer]. Start: 01-21-2018 End: 01-21-2018 Office outpatient visit 10 minutes Tanja JOHNSON MD Work Phone: [employer]. Start: 01-04-2018 End: 01-04-2018 Follow-up encounter Tanja JOHNSON MD Work Phone: [employer]. Start: 01-03-2018 End: 01-03-2018 Office outpatient visit 15 minutes Tanja JOHNSON MD Work Phone: [employer]. Start: 07-16-2017 End: 07-16-2017 Procedure Order Tanja JOHNSON MD Work Phone: [employer]. Start: 07-10-2017 End: 07-10-2017 Follow-up encounter Tanja JOHNSON MD Work Phone: [employer]. Start: 07-09-2017 End: 07-09-2017 Medication Refill/Order Tanja JOHNSON MD Work Phone: [facility] [employer]. Start: 07-09-2017 End: 07-09-2017 Lab Only Tanja JOHNSON MD Work Phone: [employer]. Start: 05-24-2017 End: 05-24-2017 Office outpatient visit 15 minutes Tanja JOHNSON MD Work Phone: [employer]. Start: 03-26-2017 End: 03-26-2017 Medication Refill/Order Tanja JOHNSON MD Work Phone: [facility] [employer]. Start: 12-21-2016 End: 12-21-2016 Follow-up encounter Tanja JOHNSON MD Work Phone: [employer]. Start: 12-21-2016 End: 12-21-2016 Office outpatient visit 10 minutes Tanja JOHNSON MD Work Phone: [facility] [employer]. Start: 11-29-2016 End: 11-30-2016 Medication Refill/Order Tanja JOHNSON MD Work Phone: [facility] [employer]. Start: 11-21-2016 End: 11-22-2016 Medication Refill/Order Tanja JOHNSON MD Work Phone: [facility] [employer]. Start: 07-31-2016 End: 08-01-2016 Historical Summary Tanja JOHNSON MD Work Phone: [facility] [employer] Start: 07-27-2016 End: 07-27-2016 Office outpatient visit 15 minutes Tanja JOHNSON MD Work Phone: [facility] [employer]. Start: 03-16-2016 End: 03-16-2016 Office outpatient visit 15 minutes Tanja JOHNSON MD Work Phone: [employer] [facility] ComAbility. Start: 10-15-2015 End: 10-15-2015 Results Review Tanja JOHNSON MD Work Phone: [employer] [facility] [employer]. Start: 10-14-2015 End: 10-14-2015 Office outpatient visit 15 minutes Tanja JHONSON MD Work Phone: [employer] [facility] Gloria [employer]. Start: 04-01-2015 End: 04-01-2015 Patient encounter procedure Tanja JOHNSON MD Work Phone: [employer] [facility] ComAbility. Start: 12-10-2014 End: 12-10-2014 Office outpatient visit 15 minutes Tanja JOHNSON MD Work Phone: [employer] [facility] ComAbility. Start: 09-17-2014 End: 09-17-2014 Office outpatient visit 10 minutes Tanja JOHNSON MD Work Phone: [employer] [facility] NGRAIN Start: 07-16-2014 End: 07-16-2014 Medication Refill/Order Tanja JOHNSON MD Work Phone: [employer] [facility] ComAbility. Start: 05-13-2014 End: 05-13-2014 Medication Refill/Order Tanja JOHNSON MD Work Phone: [facility] [employer] [facility]areScientific Intake. Start: 04-09-2014 End: 04-09-2014 Patient encounter procedure Tanja JOHNSON MD Work Phone: [facility] [employer] Christian[facility]areScientific Intake. Start: 02-12-2014 End: 02-12-2014 Patient encounter procedure Tanja JOHNSON MD Work Phone: [employer] [facility] Start: 11-23-2013 End: 11-23-2013 Medication Refill/Order Tanja JOHNSON MD Work Phone: [employer] [facility] Start: 11-20-2013 End: 11-20-2013 Patient encounter procedure Tanja JOHNSON MD Work Phone: [employer] [facility] Hospital[facility]SIM. Start: 11-10-2013 End: 11-10-2013 Follow-up encounter Tanja JOHNSON MD [facility] Start: 11-04-2013 End: 11-04-2013 Follow-up encounter Tanja JOHNSON MD Work Phone: [facility] ComAbility. Start: 11-03-2013 End: 11-03-2013 Patient encounter procedure Tanja JOHNSON MD Work Phone: [employer] [facility] ComAbility. Start: 10-16-2013 End: 10-16-2013 Patient encounter procedure Tanja JOHNSON MD Work Phone: [employer] [facility] ComAbility. Start: 07-27-2011 End: 07-27-2011 Results Review Tanja JOHNSON MD Work Phone: [facility] Start: 07-20-2011 End: 07-20-2011 Medication Refill/Order Tanja JOHNSON MD Work Phone: [facility] Start: 07-19-2011 End: 07-19-2011 Patient encounter procedure Tanja JOHNSON MD Work Phone: [facility] Start: 07-17-2011 End: 07-17-2011 Patient encounter procedure Tanja JOHNSON MD Work Phone: [facility] Start: 03-14-2011 End: 03-14-2011 Historical Summary Tanja JOHNSON MD Work Phone: [facility] Start: 03-14-2011 End: 03-14-2011 Patient encounter procedure Tanja JOHNSON MD Work Phone: [facility] Start: 03-14-2011 End: 03-14-2011 Historical Summary Tanja JOHNSON MD Work Phone: [facility] Procedures Date Procedure Procedure Detail Performing Clinician Start: 10-05-2025 End: 10-05-2025 Dischrg meds reconciled w/current med list MICHELLE PALMA FILL TECHNICIAN-C Work Phone: Start: 04-19-2025 End: 04-19-2025 Dischrg meds reconciled w/current med list MICHELLE PALMA FILL TECHNICIAN-C Work Phone: Start: 03-04-2025 End: 03-04-2025 Us abdominal real time w/image documentation MICHELLE PALMA FILL TECHNICIAN-C Work Phone: Start: 03-04-2025 End: 03-04-2025 Us pelvic nonobstetric real-time image complete MICHELLE PALMA FILL TECHNICIAN-C Work Phone: Comment on above: post void residual; focus on bladder. Start: 07-16-2024 End: 07-16-2024 Dischrg meds reconciled w/current med list BELKIS Gutiérrez HOJCTETTER FILL TECHNICIAN-C Work Phone: Start: 08-06-2023 End: 08-06-2023 Dischrg meds reconciled w/current med list ELAINA RENO MD Work Phone: Start: 03-04-2023 End: 03-04-2023 Dischrg meds reconciled w/current med list BELKIS Gutiérrez HOJCTETTER FILL TECHNICIAN-C Work Phone: Start: 09-10-2022 End: 09-10-2022 Dischrg meds reconciled w/current med list Malka Rodriguez Start: 10-18-2021 End: 10-18-2021 Dischrg meds reconciled w/current med list CHRISTIAN MAXWELL RN Start: 06-02-2021 End: 06-02-2021 Dischrg meds reconciled w/current med list BELKIS Gutiérrez HOANDREIATTER FILL TECHNICIAN-C Work Phone: Start: 06-02-2021 End: 06-02-2021 Urinary Incontinence Malka Rodriguez Comment on above: Negative. Start: 03-09-2021 End: 03-09-2021 Dischrg meds reconciled w/current med list BELKIS Gutiérrez DEANDREANDREIATTER FILL TECHNICIAN-C Work Phone: Start: 03-21-2020 End: 03-21-2020 Dischrg meds reconciled w/current med list BELKIS Gutiérrez HOJCTETTER FILL TECHNICIAN-C Work Phone: Start: 08-17-2019 End: 08-17-2019 Dischrg meds reconciled w/current med list BELKIS Gutiérrez HOJCTETTER FILL TECHNICIAN-C Work Phone: Start: 07-03-2019 End: 07-03-2019 Dischrg meds reconciled w/current med list FRANCIS RENO MD Work Phone: Start: 12-12-2018 End: 12-12-2018 Dischrg meds reconciled w/current med list FRANCIS RENO MD Work Phone: Start: 07-02-2016 End: 07-02-2016 CT of abdomen BELKIS Gutiérrez KAIT FILL TECHNICIAN-C Work Phone: Comment on above: R renal cyst Start: 07-02-2016 End: 07-02-2016 endometrial bx BELKIS Gutiérrez KAIT FILL TECHNICIAN-C Work Phone: Comment on above: atrophic endometrium Adacel Malka Rodriguez Comment on above: advised on 07/18/2018 Adacel MICHELLE SCHLABAC H FILL TECHNICIAN-C Work Phone: Comment on above: advised on 07/18/2018 appy with removal of ovary S AMERICO PRASAD RN appy with removal of ovary C ARRIE LOUIE FILL TECHNICIAN-C Work Phone: c/s x 1 ERAN PRASAD RN c/s x 1 MICHELLE SCHLABAC H FILL TECHNICIAN-C Work Phone: Immunization Malka Rodriguez Comment on above: Declines COVID vacci ne. Immunization MICHELLE SCHLABAC H FILL TECHNICIAN-C Work Phone: Comment on above: Declines COVID vacci ne. Shingrix Malka Rodriguez Comment on above: advised on 07/18/2018 Shingrix MICHELLE SCHLABAC H FILL TECHNICIAN-C Work Phone: Comment on above: advised on 07/18/2018 Plan of Treatment Date Care Activity Detail Author Start: 10-05-2025 Assay of triiodothyr onine t3 free FREE TRIIDOTHYRONINE (T3) ([id number]) Start: 05-Oct-2025 09:49-05:00 Request [employer] [facility]ake.; [employer] [facility] [employer] [facility]Scient[facility] Intake. Start: 10-05-2025 Assay of free thyroxine THYROX INE FREE ([id number]) Start: 05-Oct-2025 09:49-05:00 Request [employer].; [facility] [employer] [facility] Start: 10-05-2025 Assay of thyroid stimulating hormone tsh TSH (THYROID STIMULATING HORMONE) ([id number]) Start: 05-Oct-2025 09:37-05:00 Request [facility] [employer] [facility]; [facility] [employer] Christian[facility]areScientific Intake. Start: 09-30-2025 Registered Recurring Registered Recu rring -Physical Therapy Work Phone: Start: 02-23-2025 Us abdominal real ti me w/image documentation US ABDOM, COMPLETE ([id number]) Start: 23-Feb-2025 Intent [facility] [employer] [facility]First[facility]; [facility] [employer] [facility]Scient[facility] Intake. Start: 02-23-2025 Us pelvic nonobstetr ic real-time image complete US PELVIS, COMPLETE ([id number]) Start: 23-Feb-2025 Intent Comments: post void residual; focus on bladder. [facility]; [employer] [place] [employer] [facility] Comment on above: post void residual; focus on bladder. Start: 02-23-2025 Culture bacterial quanttative colony count urine URINE NABEEL CULTURE-FORREST COL COUNT ([id number]) Start: 23-Feb-2025 09:43-04:00 Request PagerDuty; [facility]areScient[facility] Intake. Start: 02-23-2025 Culture bct isol&prs mptv id isolate ea urine URINE NABEEL CULTURE-ID ([id number]) Start: 23-Feb-2025 09:43-04:00 Request [employer] [facility]; [employer] [facility] Intake. Start: 02-23-2025 Urnls dip stick/tabl et rgnt non-auto w/o micrscp U/A W/O MICROSCOPY ([id number]) Start: 23-Feb-2025 09:06-04:00 Request [employer] [facility]; [employer] [facility] Intake. Start: 02-23-2025 Patient encounter procedure Medical; ACUTE ILLNESS - ?/ hernia groin area [facility] Intake Start: 23-Feb-2025 09:00-04:00 CAROLE PALMA Appointment Request [facility] Start: 07-16-2024 Assay of thyroid stimulating hormone tsh TSH ([id number]) Start: 16-Jul-2024 09:53-04:00 [facility] Intake. Start: 03-09-2021 Culture bct isol&prs mptv id isolate ea urine URINE NABEEL CULTURE-ID ([id number]) Start: 09-Mar-2021 16:13-04:00 Request [facility]; [facility] Start: 03-09-2021 Patient Education [facility]; [facility] Start: 09-19-2020 Patient Education [facility] [place]; [facility] [employer] [facility] Intake Start: 03-21-2020 Patient Education [facility] [place]; [facility] Intake. Start: 07-03-2019 Patient Education [facility] [place]; [facility] [employer] Start: 12-12-2018 Patient Education IRRITABLE BRITNI WEL Indication: Irritable bowel syndrome with constipation Start: 12-Dec-2018 Instruction Type: Patient Education [facility] [place]; [facility] [place] Start: 07-18-2018 Patient Education MIGRAINE HEA DACHE Indication: Migraine without aura and without status migrainosus, not intractable Start: 18-Jul-2018 Instruction Type: Patient Education [facility] [place]; [facility] [employer]. Start: 01-03-2018 Patient Education HEADACHE - T ENSION Indication: Tension headache Start: 03-Jan-2018 Instruction Type: Patient Education [employer] Gloria[employer]ability; [employer] [facility] [employer]. Start: 05-24-2017 Patient Education HYPERLIPIDEM IA Indication: Hyperlipidemia, unspecified hyperlipidemia type Start: 24-May-2017 Instruction Type: Patient Education PagerDuty; [employer] [place] [employer] [facility] [place] Start: 12-21-2016 Patient Education ANXIETY Alessandra cation: Anxiety and depression Start: 21-Dec-2016 Instruction Type: Patient Education P[employer]Duty; [employer] [place] [employer] [facility] NGRAIN Start: 07-27-2016 Patient Education ANXIETY Alessandra cation: Anxiety and depression Start: 27-Jul-2016 Instruction Type: Patient Education P[employer]Duty; [employer] [place] [employer] [facility] Start: 03-16-2016 Patient Education MIGRAINE HEA DACHE Indication: Migraine without aura and without status migrainosus, not intractable Start: 16-Mar-2016 Instruction Type: Patient Education P[employer]Duty; [employer] [facility] Start: 10-14-2015 Patient Education Migraine Hea dache: Brief Version *: migraine headache Indication: Other migraine without status migrainosus, intractable Start: 14-Oct-2015 Instruction Type: Patient Education P[employer]; [employer] [facility] Start: 04-01-2015 Patient Education MIGRAINE HEA DACHE Indication: Other migraine without status migrainosus, intractable Start: 01-Apr-2015 Instruction Type: Patient Education [employer]; [employer] [facility] [employer]. Start: 12-10-2014 Patient Education MIGRAINE HEA DACHE Indication: Other migraine without status migrainosus, intractable Start: 10-Dec-2014 Instruction Type: Patient Education P[employer]; [employer] ([employer]) Start: 09-17-2014 Patient Education ANXIETY Alessandra cation: Anxiety and depression Start: 17-Sep-2014 Instruction Type: Patient Education [employer]; [employer] [facility]. Start: 02-12-2014 Patient Education MIGRAINE HEA DACHE Indication: Migraine without aura and without status migrainosus, not intractable Start: 12-Feb-2014 Instruction Type: Patient Education P[employer]; [employer] [facility]. Start: 11-03-2013 Us abdominal real ti me w/image documentation US LIVER OR GALLBLADDER COMPLETE ([id number]) Start: 03-Nov-2013 [facility] PagerDuty; [employer] [facility] NG[facility]IN Start: 10-16-2013 Patient Education MIGRAINE HEA DACHE Indication: Migraine without aura and without status migrainosus, not intractable Start: 16-Oct-2013 Instruction Type: Patient Education [employer]; [employer] [facility] NG[facility]IN Start: 07-19-2011 Iaad ia clostridium difficile toxin C DIFF TOXIN A+B, EIA ([id number]) Start: 19-Jul-2011 14:14-04:00 Request PagerDuty; [employer] [facility] [employer]. Start: 07-19-2011 Iaad ia giardia GIARDIA - INFC T ANTIGEN, ENZYME ([id number]) Start: 19-Jul-2011 14:13-04:00 Request P[employer]Duty; [employer] [facility] [employer]. Start: 07-19-2011 Cul bact stool aerob ic isol salmonella&shigell STOOL-NABEEL CULTURE ([id number]) Start: 19-Jul-2011 14:12-04:00 Request Comments: Please include SSYC, E coli 0157 and campylobacter [employer]Duty; [employer] ([employer]) Comment on above: Please include SSYC, E coli 0157 and campylobacter Start: 07-19-2011 Ova&parasites direct smears concentration & id STOOL FOR OVA AND PARASITE-DIRECT SMEAR ([id number]) Start: 19-Jul-2011 14:12-04:00 Request PagerDuty; [employer]. Start: 07-17-2011 Patient Education DIARRHEA - a dult Indication: Acute gastroenteritis Start: 17-Jul-2011 Instruction Type: Patient Education P[employer]Duty; [employer] [facility] Work Phone: Immunizations Immunization Date Immunization Notes Care Provider [facility] 10-14-2015 influenza virus vaccine, unspecified formulation Tanja JOHNSON MD Work Phone: [facility] NG[facility]; [facility] NG[facility] Comment on above: Refused. Payers Date Payer Category Payer Self-pay 2023 Unknown [id number] 2023 Unknown [id number] 2023 Medicare [id number] 1960 Unknown [id number] 2.16.8 [id number] 1960 Unknown [id number] 2.16.8 [id number] 1960 Unknown [id number] 2.16.8 [id number] 1960 Unknown [id number] 2.16.8 [id number] Unknown Unknown [id number] 2.16.8 [id number] Unknown [id number] 2.16.8 [id number] Unknown [id number] 2.16.8 [id number] Social History Date Type Detail Facility Alcohol Use [facility] Tobacco use: Tobacco use: ; N [facility] smoker. [facility]; [facility] Start: 1960 Female [facility] Start: 09-15-2025 Never smoked tobacco [facility] Tobacco smoking status NHIS Unknown if ever smoked [facility] Work Phone: Sex Female [facility] Clinical Notes 02-11-2024 to 09-21-2025 Note Date & Type Note Facility 09-21-2025 Progress note [facility] 08-24-2025 Evaluation note Diagnosis Onset Date Resolution Acute vaginitis acute August 24, 2025 9:35am Asymptomatic bacteriuria acute August 24, 2025 9:35am Constipation acute August 242024 9:35am Nocturia acute August 9:35am Pelvic and perineal pain acute August 24, 2025 9:35am Vaginal atrophy acute August 24, 2025 9:35am Asymptomatic bacteriuria acute September 21 10:12am Constipation acute September 10:12am Nocturia acute September 21, 2025 10:12am Pelvic and perineal pain acute September 21 10:12am Vaginal atrophy acute September 022024 10:12am [facility] Work Phone: [phone]) 376-679209-23-2025 [facility] [address], [address] [place] [address] OFFICE VISIT Date of Service: 08/24/25 MR#: [id number] Acct: [id number] Name: TRISH TIPTON Rep #: [id number] : 1960 Provider: Dr. Harish Chambers MD Age/Sex: 65/F Location: [facility] Status: Signed Intake Vital Signs 08/24/25 10:00 Height 5 ft 8 in Weight: 197 lb BMI 29.9 BP 124/77 H Pulse 75 Intake Visit Reasons: 3m f/u Chief Complaint: 3 month follow up Oxidation Operator Required: No Accompanied by: self Is patient in pain?: No Allergies codeine Allergy (Verified 08/24/25 09:59) itching Medications ?Medication ?Instructions ?Recorded ?Confirmed ?Type azithromycin 250 mg tablet mg PO 08/24/25 08/24/25 His tory estradiol 0.01% (0.1 mg/gram) 1 g vaginal 3XW 08/24/25 08/24/25 History vaginal cream levothyroxine 50 mcg tablet 50 mcg PO 08/24/25 5 History multivitamin 1 tab PO QAM 08/24/25 History Have you fallen in the past year?: No Nurse's Note: PFPT helped some, Suppositories- she doesn't quite understand them and would like clarification. not seen a difference with the estrogen cream, doesnt know what to expect. Patient reports feeling lost. Burnign in vaginal folds- monostat 7 helps. occasional itching. [facility] Medical History (Updated 08/24/25 @ 10:[address] Alyx Chambers MD) Vaginal atrophy Asymptomatic bacteriuria Nocturia Constipation Pelvic and perineal pain HPI HPI Urology Chief Complaint: 3 month follow up Details: TRISH TIPTON, is a 65 F. Here for follow up after pelvic floor physical therapy, suppositories and vaginal estrogen cream. She had a horrible experience with Eliza and a male therapist. She finally had another 4 appointments with Sofie and this was better. She has a follow up with in September. She is still having a fullness in her bladder. During the day she is voiding about 5 times, during the night she voids 2-3 times. She is not limiting fluids before bed. There is no incontinence. She has resolution of her fullness immediately after voiding. She has no gross hematuria. She has vaginal burning and Monistat 7 helps. She isalso having itching. She is not using the estrogen cream. We discussed why and how and she will be more diligent with this. She is concerned that she may have a vaginal infection today. No discharge or odor, just external itching and burning. ROS Const Constitutional: No chills, fatigue, fever(s), headache(s), night sweats, weakness, weight change, abnormal sleep pattern or change in appetite Eyes Eyes: Positive for eye pain; No change in vision ENT ENT: No headache(s) or dry mouth Resp Respiratory: No cough, chest congestion, shortness of breath or wheezing Cardio Cardiology: Positive for other (No chest pain.); No shortness of breath, irregular heart rhythm or lightheadedness Gastro GI: Positive for other (No nausea.); No abdominal pain, change in bowel habits, constipation, diarrhea or vomiting Musc Musculoskeletal: No abnormal gait Skin Skin: No yellowing of the eye, lesions, itchy eyes, rash or skin ulcer Neuro Neurology: No abnormal gait, confusion, dizziness, weakness, headache(s) or memory loss Psych Psychiatric: No abnormal sleep pattern, No change in appetite, No confusion and No memory loss Endo Endocrine: No fatigue, increased thirst/drinking or weight change Aller/Imm Allergy/Immunologic: No itchy eyes or wheezing Cesar/Lymp Hematologic/Lymphatic: No easy bleeding, easy bruising or enlarged lymph nodes Exam Const General: cooperative, healthy appearing, comfortable and no acute distress [facility] Head: normocephalic and atraumatic Ears: hearing grossly normal bilaterally and external ears normal Nose: external nose normal Eyes General: appearance normal, both eyes and all related structures Neck Neck: normal visual inspection and trachea midline Chest Chest palpation & inspection: normal inspection of the chest Resp Effort & Inspection: normal respiratory effort, able to speak in complete sentences and symmetric chest movement Cardio Rate: regular rate GI Inspection: normal to inspection Palpation: soft and nontender General: No CVA tenderness External Female Exam: normal external appearance, normal appearance of the urethra and other (the vulva is where she isolates the itching to. There are no lesions seen.) Urethra: normal appearance of the urethra Speculum Exam - Vagina: normal vaginal discharge, vagina atrophic, no lesions, No vaginal bleeding and other (no odor, swab sent for culture) Bimanual Exam- Adnexa, other: cystocele (improved) Pelvic Support: cystocele (improved) mild OB/External & Speculum: No vaginal bleeding Speculum Exam: no vaginal bleeding Skin General: no rashes or lesions noted Neuro General: patient alert, patient awake, patient oriented x3 and CN's II-XI intactbilaterally Extrem General: normal to inspection Psych Appearance: grossly normal and well kempt Mental Status: mental status grossly normal Results POC Urinalysis w/Micro Office Urine Color Last Edit by Mili Mata on 08/24/25 10:05 Office Urine Clarity Last Edit by Mili Mata on 08/24/25 10:05 Office Urine Glucose Negative Last Edit by Mili Mata on 08/24/25 10:0 5 Office Urine Ketones Negative Last Edit by Mili Mata on 08/24/25 10:0 5 Office Urine Bilirubin Negative Last Edit by Mili Mata on 08/24/25 10 :05 Office Urine Urobilinogen 0.2 mg/dL Last Edit by Mili Mata on 5 10:05 Off Ur Spec [place] 1.005 Last Edit by Mili Mata on 08/24/25 10:05 Office Urine pH 7 Last Edit by Mili Mata on 08/24/25 10:05 Office Urine Protein Negative Last Edit by Mili Mata on 08/24/25 10:0 5 Office Urine Blood Trace Last Edit by Mili Mata on 08/24/25 10:05 Office Urine Blood Hemolyzed Negative Last Edit by Mili Mata on 08/24 10:05 Office Urine Nitrate Negative Last Edit by Mili Mata on 08/24/25 10:0 5 Off Ur Leukocytes Negatve Last Edit by Mili Mata on 08/24/25 10:05 Off Ur WBC Microscopic Last Edit by Mili Mata on 08/24/25 10:05 Off Ur RBC Microscopic Last Edit by Mili Mata on 08/24/25 10:05 Off Ur Bacteria Microscopic Last Edit by Mili Mata on 08/24/25 10:05 Coding Level of Care Code Off vis,est,level 4 Diagnoses Pelvic and perineal pain R10.2 Constipation K59.00 Nocturia R35.1 Asymptomatic bacteriuria R82.71 Vaginal atrophy N95.2 Acute vaginitis N76.0 Assessment and Plan Assessment and Plan (1) Pelvic and perineal pain: Status: Acute (2) Constipation: Status: Acute (3) Nocturia: Status: Acute (4) Asymptomatic bacteriuria: Status: Acute (5) Vaginal atrophy: Status: Acute (6) Acute vaginitis: Status: Acute Orders: Orders POC UA Automated w/Microscopy Today R82.71 - Bacteriuria Plan vaginal pathogens and urine culture if the vaginal pathogens is negative, will send in testosterone/estriol for the vulva estrogen cream 3xw Gemtesa trial, side effects discussed voiding diary level one management Plan Details Follow Up: 4 Weeks (med f/u) Comments Comments: Gemtesa samples Clinical Quality Measures Falls Risk Screening/Assistive Devices Have you fallen in the past year?: No 08/24/25 1026 > Date _ Alyx Chambers MD Cosigner Signature: Date (if applicable) CC: ~ [facility]03-12-2024 Note ORIGINAL FROM: [facility] [address] [place] [address] PROCEDURE FOR: TRISH TIPTON [address] [place] [address] Home: PID#: [id number] Exam#: [id number] : 1960 Age: 64 TO: JUWAN SERRA MD [address] [place] [address] EXAMINATION: ULTRASOUND OF THE RIGHT BREAST 02/11/2024 10:06 am TECHNIQUE: Color flow and real-time targeted ultrasound of the right breast were performed. COMPARISON: 02/11/2024 mammogram HISTORY: ORDERING SYSTEM PROVIDED HISTORY: Reason for Exam: RT BREAST ASYMMETRY FINDINGS: In the upper outer right breast there is a 5 x 5 x 4 mm cyst which corresponds to the mammographic abnormality. There is no associated vascularity. No other visible solid or cystic mass. IMPRESSION: Right breast cyst corresponding to the mammographic abnormality, this is benign and no follow-up imaging is needed. Recommend return to routine screening mammography. BIRADS: MAMMOGRAM BI-RADS: 2: Benign finding RECALL: 1 year screening RECALL TYPE: mammo LETTER SENT: Normal BI-RADS 1 and 2 Interpreted by: Denver Lawton MD Preliminary Report By: Denver Lawton MD Electronically signed By Denver Lawton MD Dictated Date: 02/11/2024 11:15:17 AM Prelim Date: 02/11/2024 11:18:34 AM Sign Date: 02/11/2024 11:18:34 AM Ordering Provider: JUWAN SERRA CLINICAL: MAMMOGRAPHIC DENSITY RIGHT BREAST LATERAL SUPERIOR. Kitchenhand: JENIFFER GIL RT(R)(M), RDAK letter sent: Normal BI-RADS 1 and 2 Ultrasound BI-RADS: 2 [facility]03-12-2024 Note ORIGINAL FROM: [facility] [address] [place] [address] PROCEDURE FOR: TRISH TIPTON [address] [place] [address] Home: PID#: [id number] Exam#: [id number] : 1960 Age: 64 TO: JUWAN SERRA MD [address] [place] [address] EXAMINATION: DIAGNOSTIC DIGITAL RIGHT BREAST MAMMOGRAM WITH TOMOSYNTHESIS, 02/11/2024 10:02 am TECHNIQUE: Diagnostic mammography of the right breast was performed with tomosynthesis. 2D standard and 3D tomosynthesis combination imaging performed through the right breast. Computer aided detection was utilized in the interpretation of this exam. Current study was also evaluated with a Computer Aided Detection (CAD) system. COMPARISON: 01/02/2024 HISTORY: ORDERING SYSTEM PROVIDED HISTORY: Reason for Exam: RT BREAST ASYMMETRY FINDINGS: BREAST DENSITY: Heterogeneously dense Right breast asymmetry only seen on the MLO view persists, it is circumscribed and oval-shaped with some minimal lobulation measuring approximately 6 mm. No other significant masses, calcifications, or other findings. IMPRESSION: Right breast asymmetry is confirmed, is in the upper outer quadrant, ultrasound is recommended to further evaluate. Ultrasound will be performed the same day and reported separately. BIRADS: MAMMOGRAM BI-RADS: 0: Needs addl evaluation RECALL: immediate RECALL TYPE: US LETTER SENT: Abnormal-Needs additional work up BI-RADS 0 Interpreted by: Denver Lawton MD Preliminary Report By: Denver Lawton MD Electronically signed By Denver Lawton MD Dictated Date: 02/11/2024 10:57:12 AM Prelim Date: 02/11/2024 11:02:26 AM Sign Date: 02/11/2024 11:02:26 AM Ordering Provider: JUWAN SERRA CLINICAL: MAMMOGRAPHIC DENSITY RIGHT BREAST. Kitchenhand: SENAIT BARNHART RT(R)(M) letter sent: Abnormal-Needs additional work up BI-RADS 0 Mammogram [facility]RADS: [facility] No data available for this section [facility] Evaluation note* Diagnosis Onset Date Resolution Status Admit Date Acute vaginitis acute August 24, 2025 9:35am Asymptomatic bacteriuria acute August 24, 2025 9:35am Constipation acute August 242024 9:35am Nocturia acute August 9:35am Pelvic and perineal pain acute August 24, 2025 9:35am Vaginal atrophy acute August 24, 2025 9:35am [facility] Work Phone: Hospital Discharge instructions No data available for this section [facility] Progress note No data available for this section [facility] progress note Author Alyx Chambers [facility] Note Date/Time August 24, 2025 10:25am [facility] [address] [place] [address], [address] [place] [address] OFFICE VISIT Date of Service: 08/24/25 MR#: [id number] Acct: [id number] Name: TRISH TIPTON Rep #: [id number] : 1960 Provider: Dr. Harish Chambers MD Age/Sex: 65/F Location: [facility] Status: Signed Intake Vital Signs 08/24/25 10:00 Height 5 ft 8 in Weight: 197 lb BMI 29.9 BP 124/77 H Pulse 75 Intake Visit Reasons: 3m f/u Chief Complaint: 3 month follow up Oxidation Operator Required: No Accompanied by: self Is patient in pain?: No Allergies codeine Allergy (Verified 08/24/25 09:59) itching Medications ?Medication ?Instructions ?Recorded ?Confirmed ?Type azithromycin 250 mg tablet mg PO 08/24/25 08/24/25 His tory estradiol 0.01% (0.1 mg/gram) 1 g vaginal 3XW 08/24/25 08/24/25 History vaginal cream levothyroxine 50 mcg tablet 50 mcg PO 08/24/25 5 History multivitamin 1 tab PO QAM 08/24/25 History Have you fallen in the past year?: No Nurse's Note: PFPT helped some, Suppositories- she doesn't quite understand them and would like clarification. not seen a difference with the estrogen cream, doesnt know what to expect. Patient reports feeling lost. Burnign in vaginal folds- monostat 7 helps. occasional itching. [facility] Medical History (Updated 08/24/25 @ 10:[address] Alyx Chambers MD) Vaginal atrophy Asymptomatic bacteriuria Nocturia Constipation Pelvic and perineal pain HPI HPI Urology Chief Complaint: 3 month follow up Details: TRISH TIPTON, is a 65 F. Here for follow up after pelvic floor physical therapy, suppositories and vaginal estrogen cream. She had a horrible experience with Eliza and a male therapist. She finally had another 4 appointments with Sofie and this was better. She has a follow up withher in September. She is still having a fullness in her bladder. During the day she is voiding about 5 times, during the night she voids 2-3 times. She is not limiting fluids before bed. There is no incontinence. She has resolution of her fullness immediately after voiding. She has no gross hematuria. She has vaginal burning and Monistat 7 helps. She isalso having itching. She is not using the estrogen cream. We discussed why and how and she will be more diligent with this. She is concerned that she may have a vaginal infection today. No discharge or odor, just external itching and burning. ROS Const Constitutional: No chills, fatigue, fever(s), headache(s), night sweats, weakness, weight change, abnormal sleep pattern or change in appetite Eyes Eyes: Positive for eye pain; No change in vision ENT ENT: No headache(s) or dry mouth Resp Respiratory: No cough, chest congestion, shortness of breath or wheezing Cardio Cardiology: Positive for other (No chest pain.); No shortness of breath, irregular heart rhythm or lightheadedness Gastro GI: Positive for other (No nausea.); No abdominal pain, change in bowel habits, constipation, diarrhea or vomiting Musc Musculoskeletal: No abnormal gait Skin Skin: No yellowing of the eye, lesions, itchy eyes, rash or skin ulcer Neuro Neurology: No abnormal gait, confusion, dizziness, weakness, headache(s) or memory loss Psych Psychiatric: No abnormal sleep pattern, No change in appetite, No confusion and No memory loss Endo Endocrine: No fatigue, increased thirst/drinking or weight change Aller/Imm Allergy/Immunologic: No itchy eyes or wheezing Cesar/Lymp Hematologic/Lymphatic: No easy bleeding, easy bruising or enlarged lymph nodes Exam Const General: cooperative, healthy appearing, comfortable and no acute distress HENMT Head: normocephalic and atraumatic Ears: hearing grossly normal bilaterally and external ears normal Nose: external nose normal Eyes General: appearance normal, both eyes and all related structures Neck Neck: normal visual inspection and trachea midline Chest Chest palpation & inspection: normal inspection of the chest Resp Effort & Inspection: normal respiratory effort, able to speak in complete sentences and symmetric chest movement Cardio Rate: regular rate GI Inspection: normal to inspection Palpation: soft and nontender General: No CVA tenderness External Female Exam: normal external appearance, normal appearance of the urethra and other (the vulva is where she isolates the itching to. There are no lesions seen.) Urethra: normal appearance of the urethra Speculum Exam - Vagina: normal vaginal discharge, vagina atrophic, no lesions, No vaginal bleeding and other (no odor, swab sent for culture) Bimanual Exam- Adnexa, other: cystocele (improved) Pelvic Support: cystocele (improved) mild OB/External & Speculum: No vaginal bleeding Speculum Exam: no vaginal bleeding Skin General: no rashes or lesions noted Neuro General: patient alert, patient awake, patient oriented x3 and CN's II-XI intactbilaterally Extrem General: normal to inspection Psych Appearance: grossly normal and well kempt Mental Status: mental status grossly normal Results POC Urinalysis w/Micro Office Urine Color Last Edit by Mili Mata on 08/24/25 10:05 Office Urine Clarity Last Edit by Mili Mata on 08/24/25 10:05 Office Urine Glucose Negative Last Edit by Mili Mata on 08/24/25 10:0 5 Office Urine Ketones Negative Last Edit by Mili Mata on 08/24/25 10:0 5 Office Urine Bilirubin Negative Last Edit by Mili Mata on 08/24/25 10 :05 Office Urine Urobilinogen 0.2 mg/dL Last Edit by Mili Mata on 5 10:05 Off Ur Spec [place] 1.005 Last Edit by Mili Mata on 08/24/25 10:05 Office Urine pH 7 Last Edit by Mili Mata on 08/24/25 10:05 Office Urine Protein Negative Last Edit by Mili Mata on 08/24/25 10:0 5 Office Urine Blood Trace Last Edit by Mili Mata on 08/24/25 10:05 Office Urine Blood Hemolyzed Negative Last Edit by Mili Mata on 08/24 10:05 Office Urine Nitrate Negative Last Edit by Mili Mata on 08/24/25 10:0 5 Off Ur Leukocytes Negatve Last Edit by Mili Mata on 08/24/25 10:05 Off Ur WBC Microscopic Last Edit by Mili Mata on 08/24/25 10:05 Off Ur RBC Microscopic Last Edit by Mili Mata on 08/24/25 10:05 Off Ur Bacteria Microscopic Last Edit by Mili Mata on 08/24/25 10:05 Coding Level of Care Code Off vis,est,level 4 Diagnoses Pelvic and perineal pain R10.2 Constipation K59.00 Nocturia R35.1 Asymptomatic bacteriuria R82.71 Vaginal atrophy N95.2 Acute vaginitis N76.0 Assessment and Plan Assessment and Plan (1) Pelvic and perineal pain: Status: Acute (2) Constipation: Status: Acute (3) Nocturia: Status: Acute (4) Asymptomatic bacteriuria: Status: Acute (5) Vaginal atrophy: Status: Acute (6) Acute vaginitis: Status: Acute Orders: Orders POC UA Automated w/Microscopy Today R82.71 - Bacteriuria Plan vaginal pathogens and urine culture if the vaginal pathogens is negative, will send in testosterone/estriol for the vulva estrogen cream 3xw Gemtesa trial, side effects discussed voiding diary level one management Plan Details Follow Up: 4 Weeks (med f/u) Comments Comments: Gemtesa samples Clinical Quality Measures Falls Risk Screening/Assistive Devices Have you fallen in the past year?: No 08/24/25 1026 <Electronically signed by Alyx Chambers MD> Date _ Alyx Chambers MD Cosigner Signature: Date (if applicable) CC: ~ [facility] Work Phone: Progress note Author Alyx Chambers [facility] Note Date/Time September 21, 2025 1 2:23pm [facility] [address] [place] [address] [address] [place] [address] OFFICE VISIT Date of Service: 09/21/25 MR#: [id number] Acct: [id number] Name: TRISH TIPTON Rep #: [id number] : 1960 Provider: Dr. Harish Chambers MD Age/Sex: 65/F Location: [facility] Status: Signed Intake Vital Signs 08/24/25 10:00 09/21/25 10:51 Height 5 ft 8 in 5 ft 8 in Weight: 197 lb 197 lb BMI 29.9 29.9 BP 124/77 H 124/75 H Pulse 75 73 Intake Visit Reasons: 4wk MED F/U Chief Complaint: 4 week gemtesa follow up Oxidation Operator Required: No Accompanied by: Self Is patient in pain?: No Allergies codeine Allergy (Verified 09/21/25 10:48) itching Penicillins Allergy (Verified 09/21/25 10:48) Rash Sulfa (Sulfonamide Antibiotics) Adverse Reaction (Verified 09/21/25 10:48) Vomiting Medications ?Medication ?Instructions ?Recorded ?Confirmed ?Type estradiol 0.01% (0.1 mg/gram) 1 g vaginal 3XW 08/24/25 09/21/25 History vaginal cream levothyroxine 50 mcg tablet 50 mcg PO 08/24/25 5 History multivitamin 1 tab PO QAM 08/24/25 History Bladder health PO 09/21/25 09/21/25 History methenam 118 mg-m.blue 10 1 tab PO .qid PRN pain #90 c aps 09/21/25 09/21/25 Rx mg-s.phos 40.8 mg-p.salic 36 mg-hyos capsule (Uro-MP) nitrofurantoin 100 mg PO BID #6 caps 09/21/25 Rx monohydrate/macrocrystals 100 mg capsule (Macrobid) vitamin B complex 1 tab PO QDAY 09/21/2509/21 History Have you fallen in the past year?: No Nurse's Note: felt like the gemtesa made things worse, she stopped the gemtsa d/t uti side effets. still having burning and discomfort. Bladder scan PVR: 17cc [facility] Medical History History of mammogram History of Papanicolaou smear of cervix Seasonal allergies Radiculopathy of leg Myalgia Migraine without aura Insomnia Irritable bowel syndrome with constipation Hyperlipidemia GERD (gastroesophageal reflux disease) Degenerative disc disease, cervical UTI (urinary tract infection) Migraines Thyroid disease Anxiety and depression Vaginal atrophy Asymptomatic bacteriuria Nocturia Constipation Pelvic and perineal pain Surgical History History of delivery History of appendectomy History of ovarian cystectomy Family History Brother CAD (coronary artery disease) Heart disease Father Lymphoma Heart disease Grandmother Lymphoma Uncle Cancer Prostate. Mother Colon cancer Breast cancer Other Diabetes Social History Smoking Status: Never smoker alcohol intake: never HPI HPI Urology Chief Complaint: 4 week gemtesa follow up Details: TRISH TIPTON, is a 65 F. She is here for medication follow up. She was taking Gemtesa 75mg daily. She was having side effects from the medication. Her bladder spasms were worse. Stopped it after 6 days. She reports that she is using estrogen cream. She has added D-mannose and it does seem to help her. She is not having burning every day. I tried to pinpoint the specifics of the burning, but she has a hard time with this. She thinks the burning is in the urethra. It is happening a few times a week maybe. It is worse when she cannot drink enough water. Walking helps it. If she is not able to move around, sits too long like in car, it is worse. We discussed using the suppositories when this happens. She has another physical therapy appointment this month. Antibiotics did not. We discussed all of things we have done to help with the burning and why. ROS Const Constitutional: No chills, fatigue, fever(s), headache(s), night sweats, weakness, weight change, abnormal sleep pattern or change in appetite Eyes Eyes: No change in vision ENT ENT: No headache(s) or dry mouth Resp Respiratory: No cough, chest congestion, shortness of breath or wheezing Cardio Cardiology: Positive for other (No chest pain.); No shortness of breath, irregular heart rhythm or lightheadedness Gastro GI: Positive for other (No nausea.); No abdominal pain, change in bowel habits, constipation, diarrhea or vomiting Musc Musculoskeletal: No abnormal gait Skin Skin: No yellowing of the eye, lesions, itchy eyes, rash or skin ulcer Neuro Neurology: No abnormal gait, confusion, dizziness, weakness, headache(s) or memory loss Psych Psychiatric: No abnormal sleep pattern, No change in appetite, No confusion and No memory loss Endo Endocrine: No fatigue, increased thirst/drinking or weight change Aller/Imm Allergy/Immunologic: No itchy eyes or wheezing Cesar/Lymp Hematologic/Lymphatic: No easy bleeding, easy bruising or enlarged lymph nodes Exam Const General: cooperative, healthy appearing, comfortable and no acute distress HENMT Head: normocephalic and atraumatic Ears: hearing grossly normal bilaterally and external ears normal Nose: external nose normal Eyes General: appearance normal, both eyes and all related structures Neck Neck: normal visual inspection and trachea midline Chest Chest palpation & inspection: normal inspection of the chest Resp Effort & Inspection: normal respiratory effort, able to speak in complete sentences and symmetric chest movement Cardio Rate: regular rate GI Inspection: normal to inspection Palpation: soft and nontender General: No CVA tenderness Skin General: no rashes or lesions noted Neuro General: patient alert, patient awake, patient oriented x3 and CN's II-XI intactbilaterally Extrem General: normal to inspection Psych Appearance: grossly normal and well kempt Mental Status: mental status grossly normal Results POC Urinalysis w/Micro Office Urine Color Last Edit by Mili Mata on 09/21/25 10:56 Office Urine Clarity Last Edit by Mili Mata on 09/21/25 10:56 Office Urine Glucose Negative Last Edit by Mili Mata on 09/21/25 10:5 6 Office Urine Ketones Negative Last Edit by Mili Mata on 09/21/25 10:5 6 Office Urine Bilirubin Negative Last Edit by Mili Mata on 09/21/25 10 :56 Office Urine Urobilinogen 0.2 mg/dL Last Edit by Mili Mata on 5 10:56 Off Ur Spec [place] 1.005 Last Edit by Mili Mata on 09/21/25 10:56 Office Urine pH 7.5 Last Edit by Mili Mata on 09/21/25 10:56 Office Urine Protein Negative Last Edit by Mili Mata on 09/21/25 10:5 6 Office Urine Blood Trace Last Edit by Mili Mata on 09/21/25 10:56 Office Urine Blood Hemolyzed Negative Last Edit by Mili Mata on 09/21 10:56 Office Urine Nitrate Positive Last Edit by Mili Mata on 09/21/25 10:5 6 Off Ur Leukocytes Positive Last Edit by Mili Mata on 09/21/25 10:56 Off Ur WBC Microscopic Last Edit by Mili Mata on 09/21/25 10:56 Off Ur RBC Microscopic Last Edit by Mili Mata on 09/21/25 10:56 Off Ur Bacteria Microscopic Last Edit by Mili Mata on 09/21/25 10:56 leuks 15 Coding Level of Care Code Off vis,est,level 4 Diagnoses Pelvic and perineal pain R10.2 Constipation K59.00 Nocturia R35.1 Vaginal atrophy N95.2 Asymptomatic bacteriuria R82.71 Assessment and Plan Assessment and Plan (1) Pelvic and perineal pain: Status: Acute (2) Constipation: Status: Acute (3) Nocturia: Status: Acute (4) Vaginal atrophy: Status: Acute (5) Asymptomatic bacteriuria: Status: Acute Orders: Orders POC UA Automated w/Microscopy Today N39.0 - Urinary tract infection, site not specified Medications: New methen-m.blue-s.dgpo-nkqns-brq 118-10-40.8-36 mg (Uro-MP) administer with plenty of fluids 1 TAB PO .qid PRN 90 caps 3RF pain nitrofurantoin monohyd/m-cryst 100 mg (Macrobid) must administer with a meal/food 100 mg PO BID 6 caps 0RF Plan continue level one management with walking, fluid hydration, stress management, bowel etc continue vaginal estrogen cream and D-mannose use pelvic suppositories with symptoms trial Urogesic Blue schedule cystoscopy next visit. Macrobid 3 days prior to next visit. risks discussed complete physical therapy next week Plan Details Follow Up: next available (cystoscopy) Clinical Quality Measures Falls Risk Screening/Assistive Devices Have you fallen in the past year?: No 09/21/252045 <Electronically signed by Alyx Chambers MD> Date _ Alyx Chambers MD Cosigner Signature: Date (if applicable) CC: ~ [facility] Work Phone: Reason for referral (narrative)No reason for referral information availableK[facility] Work Phone: Summary Purpose Family History Brother (s) Status:Active Comments:5. one with CAD @ age 55 y.o. Father Status:Active Comments: d. age 74, Lymphoma, CAD Mother Status:Active Comments: d. age 61, breast cancer, colon cancer Sister (s) Status:Active Comments:3. one with Chol. Brother (s) Status:Active Comments:5. one with CAD @ age 55 y.o. Father Status:Active Comments: d. age 74, Lymphoma, CAD Mother Status:Active Comments: d. age 61, breast cancer, colon cancer Sister (s) Status:Active Comments:3. one with Chol. Brother (s) Status:Active Comments:5. one with CAD @ age 55 y.o. Father Status:Active Comments: d. age 74, Lymphoma, CAD Mother Status:Active Comments: d. age 61, breast cancer, colon cancer Sister (s) Status:Active Comments:3. one with Chol. Brother (s) Status:Active Comments:5. one with CAD @ age 55 y.o. Father Status:Active Comments: d. age 74, Lymphoma, CAD Mother Status:Active Comments: d. age 61, breast cancer, colon cancer Sister (s) Status:Active Comments:3. one with Chol. Brother (s) Status:Active Comments:5. one with CAD @ age 55 y.o. Father Status:Active Comments: d. age 74, Lymphoma, CAD Mother Status:Active Comments: d. age 61, breast cancer, colon cancer Sister (s) Status:Active Comments:3. one with Chol. Brother (s) Status:Active Comments:5. one with CAD @ age 55 y.o. Father Status:Active Comments: d. age 74, Lymphoma, CAD Mother Status:Active Comments: d. age 61, breast cancer, colon cancer Sister (s) Status:Active Comments:3. one with Chol. Brother (s) Status:Active Comments:5. one with CAD @ age 55 y.o. Father Status:Active Comments: d. age 74, Lymphoma, CAD Mother Status:Active Comments: d. age 61, breast cancer, colon cancer Sister (s) Status:Active Comments:3. one with Chol. Brother (s) Status:Active Comments:5. one with CAD @ age 55 y.o. Father Status:Active Comments: d. age 74, Lymphoma, CAD Mother Status:Active Comments: d. age 61, breast cancer, colon cancer Sister (s) Status:Active Comments:3. one with Chol. Brother (s) Status:Active Comments:5. one with CAD @ age 55 y.o. Father Status:Active Comments: d. age 74, Lymphoma, CAD Mother Status:Active Comments: d. age 61, breast cancer, colon cancer Sister (s) Status:Active Comments:3. one with Chol. Brother (s) Status:Active Comments:5. one with CAD @ age 55 y.o. Father Status:Active Comments: d. age 74, Lymphoma, CAD Mother Status:Active Comments: d. age 61, breast cancer, colon cancer Sister (s) Status:Active Comments:3. one with Chol. Brother (s) Status:Active Comments:5. one with CAD @ age 55 y.o. Father Status:Active Comments: d. age 74, Lymphoma, CAD Mother Status:Active Comments: d. age 61, breast cancer, colon cancer Sister (s) Status:Active Comments:3. one with Chol. Brother (s) Status:Active Comments:5. one with CAD @ age 55 y.o. Father Status:Active Comments: d. age 74, Lymphoma, CAD Mother Status:Active Comments: d. age 61, breast cancer, colon cancer Sister (s) Status:Active Comments:3. one with Chol. Brother (s) Status:Active Comments:5. one with CAD @ age 55 y.o. Father Status:Active Comments: d. age 74, Lymphoma, CAD Mother Status:Active Comments: d. age 61, breast cancer, colon cancer Sister (s) Status:Active Comments:3. one with Chol. Brother (s) Status:Active Comments:5. one with CAD @ age 55 y.o. Father Status:Active Comments: d. age 74, Lymphoma, CAD Mother Status:Active Comments: d. age 61, breast cancer, colon cancer Sister (s) Status:Active Comments:3. one with Chol. Brother (s) Status:Active Comments:5. one with CAD @ age 55 y.o. Father Status:Active Comments: d. age 74, Lymphoma, CAD Mother Status:Active Comments: d. age 61, breast cancer, colon cancer Sister (s) Status:Active Comments:3. one with Chol. Brother (s) Status:Active Comments:5. one with CAD @ age 55 y.o. Father Status:Active Comments: d. age 74, Lymphoma, CAD Mother Status:Active Comments: d. age 61, breast cancer, colon cancer Sister (s) Status:Active Comments:3. one with Chol. Brother (s) Status:Active Comments:5. one with CAD @ age 55 y.o. Father Status:Active Comments: d. age 74, Lymphoma, CAD Mother Status:Active Comments: d. age 61, breast cancer, colon cancer Sister (s) Status:Active Comments:3. one with Chol. Brother (s) Status:Active Comments:5. one with CAD @ age 55 y.o. Father Status:Active Comments: d. age 74, Lymphoma, CAD Mother Status:Active Comments: d. age 61, breast cancer, colon cancer Sister (s) Status:Active Comments:3. one with Chol. Brother (s) Status:Active Comments:5. one with CAD @ age 55 y.o. Father Status:Active Comments: d. age 74, Lymphoma, CAD Mother Status:Active Comments: d. age 61, breast cancer, colon cancer Sister (s) Status:Active Comments:3. one with Chol. Brother (s) Status:Active Comments:5. one with CAD @ age 55 y.o. Father Status:Active Comments: d. age 74, Lymphoma, CAD Mother Status:Active Comments: d. age 61, breast cancer, colon cancer Sister (s) Status:Active Comments:3. one with Chol. Brother (s) Status:Active Comments:5. one with CAD @ age 55 y.o. Father Status:Active Comments: d. age 74, Lymphoma, CAD Mother Status:Active Comments: d. age 61, breast cancer, colon cancer Sister (s) Status:Active Comments:3. one with Chol. Brother (s) Status:Active Comments:5. one with CAD @ age 55 y.o. Father Status:Active Comments: d. age 74, Lymphoma, CAD Mother Status:Active Comments: d. age 61, breast cancer, colon cancer Sister (s) Status:Active Comments:3. one with Chol. Brother (s) Status:Active Comments:5. one with CAD @ age 55 y.o. Father Status:Active Comments: d. age 74, Lymphoma, CAD Mother Status:Active Comments: d. age 61, breast cancer, colon cancer Sister (s) Status:Active Comments:3. one with Chol. Brother (s) Status:Active Comments:5. one with CAD @ age 55 y.o. Father Status:Active Comments: d. age 74, Lymphoma, CAD Mother Status:Active Comments: d. age 61, breast cancer, colon cancer Sister (s) Status:Active Comments:3. one with Chol. Brother (s) Status:Active Comments:5. one with CAD @ age 55 y.o. Father Status:Active Comments: d. age 74, Lymphoma, CAD Mother Status:Active Comments: d. age 61, breast cancer, colon cancer Sister (s) Status:Active Comments:3. one with Chol. Brother (s) Status:Active Comments:5. one with CAD @ age 55 y.o. Father Status:Active Comments: d. age 74, Lymphoma, CAD Mother Status:Active Comments: d. age 61, breast cancer, colon cancer Sister (s) Status:Active Comments:3. one with Chol. Brother (s) Status:Active Comments:5. one with CAD @ age 55 y.o. Father Status:Active Comments: d. age 74, Lymphoma, CAD Mother Status:Active Comments: d. age 61, breast cancer, colon cancer Sister (s) Status:Active Comments:3. one with Chol. Brother (s) Status:Active Comments:5. one with CAD @ age 55 y.o. Father Status:Active Comments: d. age 74, Lymphoma, CAD Mother Status:Active Comments: d. age 61, breast cancer, colon cancer Sister (s) Status:Active Comments:3. one with Chol. Brother (s) Status:Active Comments:5. one with CAD @ age 55 y.o. Father Status:Active Comments: d. age 74, Lymphoma, CAD Mother Status:Active Comments: d. age 61, breast cancer, colon cancer Sister (s) Status:Active Comments:3. one with Chol. Brother (s) Status:Active Comments:5. one with CAD @ age 55 y.o. Father Status:Active Comments: d. age 74, Lymphoma, CAD Mother Status:Active Comments: d. age 61, breast cancer, colon cancer Sister (s) Status:Active Comments:3. one with Chol. Brother (s) Status:Active Comments:5. one with CAD @ age 55 y.o. Father Status:Active Comments: d. age 74, Lymphoma, CAD Mother Status:Active Comments: d. age 61, breast cancer, colon cancer Sister (s) Status:Active Comments:3. one with Chol. Brother (s) Status:Active Comments:5. one with CAD @ age 55 y.o. Father Status:Active Comments: d. age 74, Lymphoma, CAD Mother Status:Active Comments: d. age 61, breast cancer, colon cancer Sister (s) Status:Active Comments:3. one with Chol. Relationship Condition Age at Onset Recorded Date/T neeru Not Specified Diabetes mellitus Unknown brother Coronary artery disease Unknown Cardiac disease Unknown father Lymphoma Unknown grandmother Lymphoma Unknown uncle Malignant neoplasm Unknown mother Malignant neoplasm of colon Unknown Malignant neoplasm of breast Unknown Advance Directives No Advanced Directives Records FoundNo Advanced Directives Records FoundNo Advanced Directives Records FoundNo Advanced Directives Records FoundNo Advanced Directives Records FoundNo Advanced Directives Records Found Chief Complaint and Reason for Visit Chief Complaint Admit Date LBP RX HERE July 20, 2025 12 :30pm 3m f/u August 24, 2025 9:35am Reason for Visit Admit Date Acute vaginitis August 24, 2025 9:35am Asymptomatic bacteriuria August 24, 2025 9:35am Constipation August 24, 2025 9:35am Nocturia August 24, 2025 9:35am Pelvic and perineal pain August 24, 2025 9:35am Vaginal atrophy August 24, 2025 9:35am Chief Complaint Admit Date 3m f/u August 24, 2025 9:35am 4wk MED F/U September 21, 2025 1 0:12am LBP RX HERE September 30, 2025 9 :00am Reason for Visit Admit Date Acute vaginitis August 24, 2025 9:35am Asymptomatic bacteriuria August 24, 2025 9:35am Constipation August 24, 2025 9:35am Nocturia August 24, 2025 9:35am Pelvic and perineal pain August 24, 2025 9:35am Vaginal atrophy August 24, 2025 9:35am Asymptomatic bacteriuria September 21, 025 10:12am Constipation September 21, 2025 1 0:12am Nocturia September 21, 2025 1 0:12am Pelvic and perineal pain September 21, 025 10:12am Vaginal atrophy September 21, 2025 1 0:12am Additional Source Comments INFORMATION SOURCE (unrecogn ized section and content) DATE CREATED AUTHOR 06/15/2021 [facility] [place] DATE CREATED AUTHOR AUTHOR'S ORGANIZ ATION 12/15/2021 [facility] DATE CREATED AUTHOR AUTHOR'S ORGANIZ ATION 02/17/2024 [facility] ([place]) DATE CREATED AUTHOR AUTHOR'S ORGANIZ ATION 03/06/2025 [facility] DATE CREATED AUTHOR AUTHOR'S ORGANIZ ATION 03/14/2025 [facility] DATE CREATED AUTHOR AUTHOR'S ORGANIZ ATION 10/01/2025 [facility] Patient Care team informatio n (unrecognized section and content) Team Status: Active Member Role/Relationship Status Dates No Primary Care Physician Primary care physician Activ e Team Status: Inactive Member Role/Relationship Status Dates No Primary Care Physician Primary care physician Activ e Start: June 01, 2025 Dr. Alyx Chambers MD Attending physician Active Start: June 01, 2025 Team Status: Active Member Role/Relationship Status Dates Dr. Alyx Chambers MD Attending physician Active Start: July 20, 2025 Dr. Alyx Chambers MD Referring Provider Active Start: July 20, 2025 No Primary Care Physician Primary care physician Activ e Start: July 20, 2025 Team Status: Inactive Member Role/Relationship Status Dates No Primary Care Physician Primary care physician Activ e Start: August 24, 2025 End: August 24, 2025 No Primary Care Physician Referring Provider Active Start: August 24, 2025 End: August 24, 2025 Dr. Alyx Chambers MD Attending physician Active Start: August 24, 2025 End: August 24, 2025 Team Status: Inactive Member Role/Relationship Status Dates No Primary Care Physician Primary care physician Activ e Start: August 24, 2025 End: August 24, 2025 No Primary Care Physician Referring Provider Active Start: August 24, 2025 End: August 24, 2025 Dr. Alyx Chambers MD Attending physician Active Start: August 24, 2025 End: August 24, 2025 Team Status: Inactive Member Role/Relationship Status Dates No Primary Care Physician Primary care physician Activ e Start: September 21, 2025 End: September 21, 2025 No Primary Care Physician Referring Provider Active Start: September 21, 2025 End: September 21, 2025 Dr. Alyx Chambers MD Attending physician Active Start: September 21, 2025 End: September 21, 2025 Team Status: Active Member Role/Relationship Status Dates Dr. Alyx Chambers MD Attending physician Active Start: September 30, 2025 Dr. Alyx Chambers MD Referring Provider Active Start: September 30, 2025 No Primary Care Physician Primary care physician Activ e Start: September 30, 2025 Goals (unrecognized section and content) Goals may be documented in a n alternate section FOR RECORDS PERTAINING TO PATIENTS WHO ARE OR HAVE BEEN ENROLLED IN A CHEMICAL DEPENDENCY/SUBSTANCEABUSE PROGRAM, SOME INFORMATION MAY BE OMITTED. This clinical summary was aggregated from multiple sources. Caution should be exercised in using it in the provision of clinical care. This summary normalizes information from multiple sources, and as a consequence, information in this document may materially change the coding, format and clinical context of patient data. In addition, data may be omitted in some cases. CLINICAL DECISIONS SHOULD BE BASED ON THE PRIMARY CLINICAL RECORDS. [facility]. provides no warranty or guarantee of the accuracy or completeness of information in this document.
[2025-11-11] MEDS: Lactated Ringers 1,000 ML 15 ML IV (06:35)
--- NOTE | 2025-11-11 07:15 | PRE.ANES_ITS ---
ASA Classification* ASA Classification ASA Classification: 2 Assessment & Plan Anesthesia* Anesthesia Assessment Anesthesia Assessment: Discussed sedation and/or anesthesia options, risks, benefits, and alternatives with patient/parents/legal guardian/POA. Questions invited. The patient/parents/legal guardian/POA seems to understand and agrees to proceed with anesthesia plan. Reviewed the physical assessment, medical history, allergy history and patient home medications list prior to surgery/procedure/anesthetic and documented any changes. Performed airway and anesthesia risk assessments. Anesthesia Type Anesthesia Type: MAC History Source History Obtained from:: Patient and Chart Anesthesia Focused Assessment* Temperature: 98.8 F Pulse Rate: 68 Blood Pressure: 135/80 Respiratory Rate: 18 Pulse Ox: 97 Oxygen Delivery Method: Room Air Airway Assessment Mouth opens: >3 cm Mallampati Score: IV Teeth Condition: Caps/Crowns (Patient has several crowns. They are all tight.) and Missing (Patient is missing a molar on each side on the top. Rest of the teeth are tight.) Neck Range of motion (ROM): Limited ROM (Slight Decrease) Labs Anesthesia Preop lab: CBC WBC, (4.4-11.0) 8.7 K/mm3 11/04/25, 13:51 RBC, (4.2-5.4) 5.89 M/mm3 H 11/04/25, 13:51 Hgb, (12.0-15.0) 14.4 g/dL 11/04/25, 13: Hct, (37-47) 45.8 % 11/04/25, 13: Plt Count, (150-450) 240 K/mm3 11/04/25, 13:51 CHEMISTRY Potassium, (3.3-5.1) 4.0 mmol/L 11/04/25, 13:51 Sodium, (133-145) 141 mmol/L 11/04/25, 13:51 BUN, (4-19) 15 mg/dL 11/04/25, 13:51 Creatinine, (0.70-1.20) 1.02 mg/dL 11/04/25, : Glucose, (70-99) 97 mg/dL 11/04/25, 13: TSH, (0.300-4.200) 0.749 uIU/mL 11/04/25, 13:51 COAG Pre-Assessment Diagnosis/Proposed Procedure Planned Operative Procedure(s): (N/A) Cysto, Bladder biopsy with fulguration Anesthesia History 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 When Was Last Pacemaker Check QUESTION #4 FULL TEXT: You/Your Family Experience fever (hyperthermia) with Anesthesia Last Oral Intake Last Oral intake: Last Oral Intake NPO since 23:00 11/11/25 06:30 Meds taken in AM with sips of No 11/11/25 06:30 water? 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 Female Yes 11/03/25 13:30 HX of Motion Sickness No 11/03/25 13:30 HX of N/V After Surgery Yes 11/03/25 13:30 Non-Smoker Yes 11/03/25 13:30 Duration of Surgery greater No 11/03/25 13:30 than 60 minutes Number of Risk Factors 3 11/03/25 13:30 PONV Score Moderate Risk 11/03/25 13:30 Height & Weight Height & Weight: Anesthesia: Height & Weight Height 5 ft 8 in 11/11/25 06:30 Weight: 87 kg 11/11/25 06:30 Body Mass Index (BMI) 29.1 11/11/25 06:30 Respiratory Assessment Respiratory Assessment - sewer pipe press operator: Respiratory Tract Infection Hx - sewer pipe press operator Hx Respiratory Tract Infection No 11/03/25 13:30 STOP Sleep Apnea STOP Sleep Apnea - sewer pipe press operator: STOP Sleep Apnea - sewer pipe press operator Hx Hypertension No 11/03/25 13:30 Hx Sleep Apnea No 11/03/25 13:30 CPAP BIPAP Do you snore loudly (louder No 11/03/25 13:30 than talking or can be heard Do you often feel tired/ No 11/03/25 13:30 fatigued/ sleepy during daytime? Has anyone observed you stop No 11/03/25 13:30 breathing during sleep? STOP Results Negative 11/03/25 13:30 QUESTION #5 FULL TEXT : Do you snore loudly (louder than talking or can be heard through closed doors)? 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 Specify any problems Hx of Preganancy in last 3 N/A 11/03/25 13:30 Months Nurse Filling Out Transfusion NBUCHER 11/03/25 13:30 & Questions: Date: 11/03/25 11/03/25 13:30 Time: 13:31 11/03/25 13:30 Patient unable to answer at this time (ie. 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: /Reproductive Hx- sewer pipe press operator Hx Now No 11/03/25 13:30 Gestational Age (in weeks): EDC: Hx Hx Para Hx Section SAB No 11/03/25 13:30 Does the father of the baby or his family experience fever w Father of the baby Malignant Hypertension history comment Active Medications Active Medications: Current Medications Generic Name Dose Route Start Last Admin Trade Name Freq PRN Reason Stop Dose Admin Ciprofloxacin 400 mg in 200 mls @ 200 mls/hr 11/11/25 07:00 11/11/25 06:36 Cipro IV 11/11/25 07:59 200 mls/hr PREOP ONE Administration Lactated Ringer's 1,000 mls @ 15 mls/hr 11/11/25 06:00 11/11/25 06:35 IV 15 mls/hr .Q48H EMRE Administration PFSH Medical History Wears glasses Bladder disease High cholesterol Heartburn Gastric reflux PONV (postoperative nausea and vomiting) History of mammogram History of Papanicolaou smear of cervix Seasonal allergies Radiculopathy of leg Myalgia Migraine without aura Insomnia Irritable bowel syndrome with constipation Hyperlipidemia GERD (gastroesophageal reflux disease) Degenerative disc disease, cervical UTI (urinary tract infection) Migraines Thyroid disease Anxiety and depression Vaginal atrophy Asymptomatic bacteriuria Nocturia Constipation Pelvic and perineal pain Home Medications ?Medication ?Instructions ?Recorded ?Last Taken ?Type levothyroxine 50 mcg tablet 50 mcg PO QHS 08/24/2508/26 History cephalexin 250 mg capsule 250 mg PO QHS #90 caps 10/1811/09/25 Rx magnesium 200 mg tablet 1,400 mg PO QHS 11/03/2508/26 History magnesium citrate 100 mg capsule 100 mg PO DAILY 11/0311/09/25 History Allergy/AdvReac Type Severity Reaction Status Date / Time codeine Allergy itching Verified 11/03/25 13:27 Penicillins Allergy Rash Verified 11/03/25 13:27 Sulfa (Sulfonamide AdvReac Vomiting Verified 11/03/25 13:27 Antibiotics) Family History Brother CAD (coronary artery disease) Heart disease Father Lymphoma Heart disease Grandmother Lymphoma Uncle Cancer Prostate. Mother Colon cancer Breast cancer Other Diabetes Surgical History History of delivery History of appendectomy History of ovarian cystectomy Social History Smoking Status: Never smoker alcohol intake: never Review of Systems (Anesthesia) ROS Narrative System reviewed and no additional complaints, except as documented.
--- NOTE | 2025-11-11 07:30 | BLA_PTH ---
PATIENT: GISEL TIPTON LOC: [facility] [place] U#:[id number] AGE/SX: 65/F ROOM: RE11/11/[address]: Dr. Alyx Chambers MD : 1960 BED: DIS: 11/11/2025 SPEC #: [id number] RECD: 11/11/25 09:23 STATUS: BEATRIZ REBashir #: [id number] HAKEEM: 11/11/25 07:[address]: Alyx Chambers DEPT: SURGICAL PATHOLOGY RECD BY: Gerson Barroso ENTERED: 11/11/25 10:57 SP TYPE: BLADDER BX OTHR DR: Michelle Parmar, PRODUCTION LEAD-C Tissues: A - Urinary bladder, NOS Procedures: Surgery Specimen Level IV HEADER OPERATION: Cysto, bladder wall with fulguration PRE-OP DIAGNOSIS: Urinary tract infection, lesion of bladder, pelvic and perineal pain TISSUE SUBMITTED: A- Bladder lesion MICROSCOPIC DIAGNOSIS A. Bladder, biopsy: - Follicular cystitis, squamous metaplasia. - Muscularis propria not identified. - Negative for malignancy. MICROSCOPIC DESCRIPTION Slides are reviewed. GROSS DESCRIPTION A. Received in formalin labeled with the patient's name and date of . Designated as bladder lesion are 2 olea, erythematous tissue fragments, 0.3 x 0.2 x 0.2 cm and 0.4 x 0.2 x 0.1 cm. Entirely submitted in 1 cassette. AL 11/11/2025 CPT:32381
--- NOTE | 2025-11-11 07:37 | HP.PCM_ITS ---
History and Physical Date of Admission: 11/11/25 Date of Service: 10/18/25 MR#: [id number] Acct: [id number] Name: GISEL TIPTON Rep #: [id number] : 1960 Provider: Dr. Alyx Chambers MD Age/Sex: 65/F Location: [facility] [place] Status: Signed Intake Vital Signs 09/21/2510:51 10/18/2511:16 Height 5 ft 8 in 5 ft 8 in Weight: 197 lb 197 lb BMI 29.9 29.9 BP 124/75 H 122/78 H Pulse 73 65 Intake Visit Reasons: CYSTO Chief Complaint: cystoscopy Naphthalene Operator Required: No Accompanied by: self Is patient in pain?: No Allergies codeine Allergy (Verified 10/18/25 11:14) itching Penicillins Allergy (Verified 10/18/25 11:14) Rash Sulfa (Sulfonamide Antibiotics) Adverse Reaction (Verified 10/18/25 11:14) Vomiting Medications ?Medication ?Instructions ?Recorded ?Confirmed ?Type estradiol 0.01% (0.1 mg/gram) 1 g vaginal 3XW 08/24/25 10/18/25 Histor y vaginal cream levothyroxine 50 mcg tablet 50 mcg PO 08/24/25 10/18/25 History multivitamin 1 tab PO QAM 08/24/25 10/18/25 History Bladder health PO 09/21/25 10/18/25 History vitamin B complex 1 tab PO QDAY 09/21/25 10/18/25 History cephalexin 250 mg capsule 250 mg PO QHS #90 caps 10/18/25 10/18/25 Rx Have you fallen in the past year?: No Nurse's Note: finished macrobid yesterday and is having vaginal itching uro-mp caused bluury vision, eye pain, and headache- not supposed to take with galucoma [facility] Medical History History of mammogram History of Papanicolaou smear of cervix Seasonal allergies Radiculopathy of leg Myalgia Migraine without aura Insomnia Irritable bowel syndrome with constipation Hyperlipidemia GERD (gastroesophageal reflux disease) Degenerative disc disease, cervical UTI (urinary tract infection) Migraines Thyroid disease Anxiety and depression Vaginal atrophy Asymptomatic bacteriuria Nocturia Constipation Pelvic and perineal pain Surgical History History of delivery History of appendectomy History of ovarian cystectomy Family History Brother CAD (coronary artery disease) Heart disease Father Lymphoma Heart disease Grandmother Lymphoma Uncle Cancer Prostate. Mother Colon cancer Breast cancer Other Diabetes Social History Smoking Status: Never smoker alcohol intake: never HPI HPI Urology Chief Complaint: cystoscopy Details: GISEL TIPTON, is a 65 F. She is here for cystoscopy and pelvic exam today. She has no sign of acute urinary tract infection today. She denies hematuria. Questions regarding the procedure were answered and she gives consent to proceed. Importantly, she notes that being on the Macrobid did help her symptoms. We discussed that perhaps she needs more aggressive infection prevention and that she is truly having urinary tract infections rather than asymptomatic bacteriuria. The issue also is that she is very sensitive to medications. She reports she is seeing erythema consistent with yeast after only 3 days of the Macrobid, especially on her neck. She has a hard time describing her discomfort, but it sounds like it may actually be urinary tract infections instead of pelvic pain. ROS Const Constitutional: No chills, fatigue, fever(s), headache(s), night sweats, weakness, weight change, abnormal sleep pattern or change in appetite Eyes Eyes: No change in vision ENT ENT: No headache(s) or dry mouth Resp Respiratory: No cough, chest congestion, shortness of breath or wheezing Cardio Cardiology: Positive for other (No chest pain.); No shortness of breath, irregular heart rhythm or lightheadedness Gastro GI: Positive for other (No nausea.); No abdominal pain, change in bowel habits, constipation, diarrhea or vomiting Musc Musculoskeletal: No abnormal gait Skin Skin: No yellowing of the eye, lesions, itchy eyes, rash or skin ulcer Neuro Neurology: No abnormal gait, confusion, dizziness, weakness, headache(s) or memory loss Psych Psychiatric: No abnormal sleep pattern, No change in appetite, No confusion and No memory loss Endo Endocrine: No fatigue, increased thirst/drinking or weight change Aller/Imm Allergy/Immunologic: No itchy eyes or wheezing Cesar/Lymp Hematologic/Lymphatic: No easy bleeding, easy bruising or enlarged lymph nodes Exam Const General: cooperative, healthy appearing, comfortable and no acute distress [facility] Head: normocephalic and atraumatic Ears: hearing grossly normal bilaterally and external ears normal Nose: external nose normal Eyes General: appearance normal, both eyes and all related structures Neck Neck: normal visual inspection and trachea midline Chest Chest palpation & inspection: normal inspection of the chest Resp Effort & Inspection: normal respiratory effort, able to speak in complete sentences and symmetric chest movement Cardio Rate: regular rate GI Inspection: normal to inspection Palpation: soft and nontender General: No CVA tenderness External Female Exam: normal external appearance and normal appearance of the urethra Urethra: normal appearance of the urethra Speculum Exam - Vagina: vagina atrophic, no masses and nontender Bimanual Exam- Adnexa, other: normal Pelvic Support: normal, no cystocele and no rectocele Skin General: no rashes or lesions noted (specifically no erythema or rash of the neck is appreciated) Neuro General: patient alert, patient awake, patient oriented x3 and CN's II-XI intact bilaterally Extrem General: normal to inspection Psych Appearance: grossly normal and well kempt Mental Status: mental status grossly normal Office Procedures Cystoscopy Procedure Completed: Yes Cystoscopy: The patient was placed into dorsal lithotomy position, and was cleaned in usual sterile fashion. The urethra was anesthetized with 2% lidocaine jelly. The cystoscope was inserted through the urethra under direct visualization. No urethral abnormalities were detected. The bladder in its entirety was inspected. The ureteral orifices were identified bilaterally in correct anatomic position. The following were identified: no mass, ulceration or foreign body. 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 On the trigone is a thick white patch of mucosa consistent with squamous metaplasia. The cystoscope was removed, and the procedure was terminated. The patient tolerated the procedure well without complication or difficulty. Results POC UA Auto w/o Microscopy Office Urine Color ? Last Edit by Mili Mata on 10/18/25 11:12 Office Urine Clarity ? Last Edit by Mili Mata on 10/18/25 11:12 Office Urine Glucose Negative Last Edit by Mili Mata on 10/18/25 11:12 Office Urine Ketones Negative Last Edit by Mili Mata on 10/18/25 11:12 Office Urine Bilirubin Negative Last Edit by Mili Mata on 10/18/25 11:1 2 Office Urine Urobilinogen 0.2 mg/dL Last Edit by Mili Mata on 10/18/25 11:12 Off Ur Spec [place] 1.010 Last Edit by Mili Mata on 10/18/25 11:12 Office Urine pH 6.5 Last Edit by Mili Mata on 10/18/25 11:12 Office Urine Protein Negative Last Edit by Mili Mata on 10/18/25 11:12 Office Urine Blood Small Last Edit by Mlii Mata on 10/18/25 11:12 Office Urine Blood Hemolyzed Negative Last Edit by Mili Mata on 5 11:12 Office Urine Nitrate Negative Last Edit by Mili Esperanza on 10/18/25 11:12 Off Ur Leukocytes Negatve Last Edit by Mili Esperanza on 10/18/25 11:12 Coding Level of Care Code Off vis,est,level 4 Diagnoses UTI (urinary tract infection) N39.0 Lesion of bladder N32.9 Pelvic and perineal pain R10.2 Constipation K59.00 Nocturia R35.1 Vaginal atrophy N95.2 Additional Codes Intake - Is patient in pain?: No (1126F) Assessment and Plan Assessment and Plan (1) UTI (urinary tract infection): Status: Acute (2) Lesion of bladder: Status: Acute (3) Pelvic and perineal pain: Status: Acute (4) Constipation: Status: Acute (5) Nocturia: Status: Acute (6) Vaginal atrophy: Status: Acute Orders: Orders POC UA Auto w/o Microscopy 10/18/25 N39.0 - Urinary tract infection, site not specified Cysto 10/18/25 N39.0 - Urinary tract infection, site not specified Medications: New cephalexin 250 mg PO QHS 90 caps 0RF cephalexin 250 mg PO QHS 90 caps 0RF Plan cystoscopy with bladder biopsy with fulguration under anesthesia add nightly cephalexin continue estrogen cream The procedure, recovery and expectations were explained. The risks, benefits and alternatives were discussed, including but not limited to, the risks of anesthesia, bleeding, infection, injury, pain and the need for further intervention. A joint decision was made at this time to proceed with the scheduled surgery/procedure as indicated on the consent form. Clinical Quality Measures Falls Risk Screening/Assistive Devices Have you fallen in the past year?: No 10/19/25 0014 <Electronically signed by Alyx Chambers MD> Date Alyx Chambers MD
[2025-11-11] MEDS: Lidocaine 1% (5 ml sdv) 5 ML Vial IV (07:49)
[2025-11-11] MEDS: Midazolam 2 MG/2 ML Syringe IV (07:49)
[2025-11-11] MEDS: fentaNYL 100 MCG/2 ML Ampul 50 MCG IV (07:57)
--- NOTE | 2025-11-11 08:20 | PCM.POST.ANE ---
Anesthesia: Postop Eval I Current Vital Signs Temperature: 98.3 F Pulse Rate: 70 Blood Pressure: 95/60 Respiratory Rate: 14 Pulse Ox: 98 Oxygen Delivery Method: Room Air Assessment Airway patent: Yes Spontaneous unlabored respirations: Yes Mental status: Awake and Calm nausea: No Vomiting: No Anesthesia Complication: No Fluid Hydration Crystalloid volume administer (ml): 300 Total IV fluid infused: 300 Progress Note Anesthesia document: Postop Eval 1 completed: Yes
--- NOTE | 2025-11-11 08:29 | DCINST_ITS ---
Discharge Instructions Diet Discharge Diet: No restrictions Activity Discharge Activity: Return to Normal Activity May resume sexual activity in: 1 week Dressing / Incision Call your doctor if you observe: Fever of 101 or Higher, Inability to urinate and Inability to have a bowel movement Additional Dressing/Incision Instructions:: passing blood clots in the urine Follow Up Care Please Follow Up With: Alyx Chambers MD Test Results: Test results from this visit will be discussed in further detail at your follow- up appointment, if applicable. Discharge Plan Admission Attending Provider: Alyx Chambers Primary Care Provider: Michelle Parmar Instructions Print Language: Bhutanese Discharge Orders/Prescriptions Prescriptions: New oxycodone-acetaminophen 5-325 mg tablet 1 tab PO Q8H PRN (Reason: pain) 3 Days Qty: 6 0RF cephalexin 500 mg capsule 500 mg PO Q12 3 Days Qty: 6 0RF phenazopyridine 200 mg tablet 200 mg PO TID PRN (Reason: pain) Qty: 30 0RF Continued levothyroxine 50 mcg tablet 50 mcg PO QHS cephalexin 250 mg capsule 250 mg PO QHS Qty: 90 0RF magnesium citrate 100 mg capsule 100 mg PO DAILY magnesium 200 mg tablet 1,400 mg PO QHS Patient Comments: in a vitamin called Oxy-Powder Other Ambulatory Orders: 12 Lead EKG (Routine) Location: None Selected Ordered By: Dr. Romeo Perales Referrals / Follow Up: Care Physician,No Primary [Non-Staff, Medical] Disposition Disposition (needs filled in before D/C Order can be placed): Home, Self Care
--- NOTE | 2025-11-11 08:32 | PCM.OPRPT ---
Multi Select Codes Urology Urology Charge Forwarding-multi code: [id number] Cystourethroscopy w/ biopsy Operative Report (Standard) Operative Information Date of Procedure: 11/11/25 Pre-Operative Diagnosis: Lesion of bladder, urinary tract infections Post-Operative Diagnosis: Same Surgery/Procedure Performed: Cystoscopy, bladder biopsy with fulguration it applications analyst: No Type of Anesthesia: MAC RN Documented Start/Stop Times: Operation Date: 11/11/25 07:30 Case Time Into Pre-Op 11/11/25 05:57 Anesthesia Start 11/11/25 07:44 Into Room 11/11/25 07:44 Procedure Start 11/11/25 07:56 Procedure End 11/11/25 08:03 Anesthesia End 11/11/25 08:08 Out of Room 11/11/25 08:08 Into Recovery 11/11/25 08:10 Into Phase II Recovery 11/11/25 08:26 Out of Recovery 11/11/25 08:26 Procedure Start Time: 07:56 Procedure Stop Time: 08:03 Select all DRAINS/GRAFTS/IMPLANTS that apply: None Estimated Blood Loss: <5cc Specimen collected: Yes Description of specimen(s) removed: Bladder biopsy Description of surgery: The patient is a 65-year-old female with bladder pain and urinary tract infections that was evaluated in the office with a cystoscopy. There were thick white plaques on the area of the trigone consistent with squamous metaplasia and she is here for biopsy for further evaluation. Informed consent was obtained. The patient was taken to the operating room and placed on the operating room table. Anesthesia monitored the head, neck, airway, IV access and vital signs throughout the case. Once anesthesia was appropriately administered, she was placed into dorsolithotomy position was prepped and draped in usual sterile fashion. The cystoscope was inserted through the urethra under direct visualization into the urinary bladder. At this time it was noted to have significantly improved with treatment of her infections. The area of white was significantly improved and only a small spot remaining in the area of the trigone. 2 biopsies removed the area of suspicion. The Bugbee was used for fulguration for hemostasis and tissue treatment. The remainder of the mucosa revealed some cystitis cystica but no evidence of ulceration or tumor growth. The bladder was then emptied and the procedure was terminated. The cystoscope was removed and she was awakened and taken to the recovery room in good condition. Surgical Findings: Significant improvement with management of infections, biopsy taken of area questionable for squamous metaplasia Complications Complications: No Admit VTE Documentation VTE Present on Admission: Yes VTE Mechan Device Prophylaxis: SCD's VTE Pharm Prophylaxis ordered?: No Reason prophylaxis not ordered: Treatment Not Indicated
--- NOTE | 2025-11-11 12:50 | POSTOPAN2_ITS ---
Anesthesia Postop Eval I Sum Postop Eval Completion status Anesthesia document: Postop Eval 1 completed: Yes Anesthesia Postop Eval I Summary Anesthesia Postop Eval I Summary: Anesthesia Postop Eval I: Assessment Summary Airway patent Yes 11/11/25 08:21 RN CLINICAL DOCUMENTATION.MDOT Spontaneous unlabored Yes 11/11/25 08:21 RN CLINICAL DOCUMENTATION.MDOT respirations Mental status Awake,Calm 11/11/25 08:21 RN CLINICAL DOCUMENTATION.MDOT nausea No 11/11/25 08:21 RN CLINICAL DOCUMENTATION.MDOT Vomiting No 11/11/25 08:21 RN CLINICAL DOCUMENTATION.MDOT Anesthesia Postop Eval I: Fluid Summary Crystalloid volume administer 300 11/11/25 08:21 RN CLINICAL DOCUMENTATION.MDOT (ml) Colloids volume administered ( ml) Blood Product volume administered (ml) Total IV fluid infused 300 11/11/25 08:21 RN CLINICAL DOCUMENTATION.MDOT Anesthesia Postop Eval I: Summary Notes Anesthesia Complication No 11/11/25 08:21 RN CLINICAL DOCUMENTATION.MDOT Anesthesia Complication Comment: Post-operative progress note Anesthesia: Postop Eval II Evaluation Mental status: Awake Pain Level: 2 nausea: No Vomiting: No
--- NOTE | 2025-11-11 12:50 | PCM.POSTANE2 ---
Anesthesia Postop Eval I Sum Postop Eval Completion status Anesthesia document: Postop Eval 1 completed: Yes Anesthesia Postop Eval I Summary Anesthesia Postop Eval I Summary: Anesthesia Postop Eval I: Assessment Summary Airway patent Yes 11/11/25 08:21 [email or web address] Spontaneous unlabored Yes 11/11/25 08:21 [email or web address] respirations Mental status Awake,Calm 11/11/25 08:21 [email or web address] nausea No 11/11/25 08:21 [email or web address] Vomiting No 11/11/25 08:21 [email or web address] Anesthesia Postop Eval I: Fluid Summary Crystalloid volume administer 300 11/11/25 08:21 [email or web address] (ml) Colloids volume administered ( ml) Blood Product volume administered (ml) Total IV fluid infused 300 11/11/25 08:21 [email or web address] Anesthesia Postop Eval I: Summary Notes Anesthesia Complication No 11/11/25 08:21 [email or web address] Anesthesia Complication Comment: Post-operative progress note Anesthesia: Postop Eval II Evaluation Mental status: Awake Pain Level: 2 nausea: No Vomiting: No
== END 2025-11-11 09:29 | disposition home or self-care (01) ==
LOC: SDC 05:50 → AC 05:50
PROVIDERS: Anesthesiology; PCP Nurse Practitioner Family; Referring Provider Urology; Visit Provider Urology
PROC: 0TBB8ZX Excision of Bladder, Via Natural or Artificial Opening Endoscopic, Diagnostic (ICD-10-PCS; CPT 52204; principal; 2025-11-11 07:20)
DX: N30.30 Trigonitis without hematuria (principal); K59.00 Constipation, unspecified; R35.1 Nocturia; E07.9 Disorder of thyroid, unspecified; Z79.899 Other long term (current) drug therapy
CPT/HCPCS: 52204; 00910; 36415; 80048; 84443; 85027; 88305; 93005; J0744; J2405